=== PATIENT | female | born 1940 | race Caucasian/White ===

== ENCOUNTER → 2016-08-03 | Outpatient (CLI) | payer MEDICARE, OTHER ==
--- NOTE | 2016-08-03 16:28 | RADIOLOGY REPORT (SQ) ---
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 RADIONUCLIDE AND DOSE: 15.0 mCi F18 FDG The route of agent administration: Intravenous FASTING BLOOD SUGAR: 158 mg/dl CONTRAST TYPE AND DOSE: No CT contrast given. TECHNIQUE: Blood glucose level was verified. Above dose of FDG was injected intravenously. 2-D seg mented attenuation correction images were obtained from the base of the skull to the midthighs. Nonc ontrast CT images were obtained for attenuation correction and fusion with emission images. CT image s were performed without oral or intravenous contrast and are not sensitive for parenchymal lesions. A series of overlapping emission PET images were obtained. Images reviewed and manipulated at [facility] work station by the radiologist. Images stored on PACS. LIMITATIONS: None. FINDINGS: HEAD AND NECK: No areas of abnormal metabolic activity in the soft tissues of the head and neck. CHEST: No areas of abnormal metabolic activity in the chest. ABDOMEN AND PELVIS: No areas of abnormal metabolic activity in the abdomen or pelvis. Expected physi ologic activity is present in the genitourinary system and bowel. PROXIMAL LOWER EXTREMITIES: No areas of abnormal metabolic activity in the soft tissues of the lower extremities. ADDITIONAL CT FINDINGS: Stable incidental findings. COPD with emphysema and scarring. Gallstones. Left hip prosthesis. OTHER: No other significant findings. IMPRESSION: UNREMARKABLE PET-CT. NO ABNORMAL METABOLIC ACTIVITY. STABLE INCIDENTAL FINDINGS ABO VE. TECHNICAL DOCUMENTATION: JOB ID: [id number]- All Rights Reserved
== END ==
LOC: RAD 07-31 14:32
PROVIDERS: ATTEND Internal Medicine
DX: C84.70 Anaplastic large cell lymphoma, ALK-negative, unspecified site (principal)
CPT/HCPCS: 78815; A9552

== ENCOUNTER 2016-09-26 00:31 | Inpatient (IN) | payer MEDICARE, OTHER ==
[2016-09-26] MEDS ORDERED: ONDANSETRON HCL INJ/PF 4 MG/2 ML SDV IV ONE (01:27)
[2016-09-26] MEDS ORDERED: MORPHINE SULFATE 10 MG/ML INJ IV ONE (01:27)
[2016-09-26 02:24] LABS: APPEARANCE,URINE SLIGHTLY-CLOUDY; BILIRUBIN,URINE NEGATIVE (NEGATIVE); GLUCOSE, URINE >=500 mg/dL (NEGATIVE); KETONES,URINE TRACE mg/dL (NEGATIVE); LEUKOCYTE ESTERASE,URINE TRACE (NEGATIVE); NITRITE,URINE NEGATIVE (NEGATIVE); PROTEIN,URINE 100 mg/dL (NEGATIVE); URINE SPECIFIC GRAVITY 1.013; UROBILINOGEN,URINE NEGATIVE mg/dL (<2.0)
[2016-09-26 02:24] LABS: ABSOLUTE BASOPHILS # (AUTO) 0.1 10^3/uL (0.0-0.2); ABSOLUTE EOSINOPHILS # (AUTO) 0.1 10^3/uL (0.0-0.6); ABSOLUTE LYMPHOCYTES (AUTO) 1.5 10^3/uL (0.5-4.7); ABSOLUTE MONOCYTES (AUTO) 0.9 10^3/uL (0.1-1.4); ABSOLUTE NEUT (AUTO) 9.4 10^3/uL (1.7-8.2); BASOPHILS % (AUTO) 0.7 % (0-2); EOSINOPHILS % (AUTO) 1.2 % (0-6); HEMATOCRIT 40.8 % (36.0-47.0); HEMOGLOBIN 13.3 g/dL (12.0-15.5); HGB HCT DIFFERENCE -0.9; LYMPHOCYTES % (AUTO) 12.1 % (13-45); MEAN CORPUSCULAR HEMOGLOBIN 30.2 pg (27.0-33.4); MEAN CORPUSCULAR HGB CONC 32.6 g/dL (32.0-36.0); MEAN CORPUSCULAR VOLUME 93 fl (80-97); MONOCYTES % (AUTO) 7.3 % (3-13); RED BLOOD COUNT 4.41 10^6/uL (3.72-5.28); SEGMENTED NEUTROPHILS % (AUTO) 78.7 % (42-78)
--- NOTE | 2016-09-26 02:30 | ER Document Report ---
ED General - General Chief Complaint: Abdominal Pain Stated Complaint: ABOMINAL PAIN Time Seen by Provider: 09/26/16 01:16 Notes: Patient is a 75-year-old female presents with complaint of abdominal pain that started this evening. She did vomit a few times. No diarrhea. No blood in her emesis. Pain is diffuse. Pain is not as bad as it was earlier when I first started. No history of abdominal surgeries. She does have history of lymphoma. Last chemotherapy was just over a month ago. says that at her recent checkup they did not cease any further signs of cancer and therefore they are holding chemotherapy for now. No recent fevers or infections. No other complaints at this time. No dysuria. No chest pain. TRAVEL OUTSIDE OF THE [place] IN LAST 30 DAYS: No - Related Data Allergies/Adverse Reactions: No Known Allergies Allergy (Verified 10/14/14 12:18) Past Medical History - Social History Smoking Status: Never Smoker Frequency of alcohol use: None Drug Abuse: None Family History: CAD, DM Patient has suicidal ideation: No Patient has homicidal ideation: No - Past Medical History Cardiac Medical History: Reports: Hx Congestive Heart Failure - Left ventricular diastolic dysfunction, Hx Hypertension - COZAAR-at bedtime Denies: Hx Coronary Artery Disease, Hx Heart Attack Pulmonary Medical History: Denies: Hx Asthma, Hx Bronchitis, Hx COPD, Hx Pneumonia Neurological Medical History: Denies: Hx Cerebrovascular Accident, Hx Seizures Endocrine Medical History: Reports: Hx Diabetes Mellitus Type 2, Hx Hypothyroidism Renal/ Medical History: Denies: Hx Peritoneal Dialysis Malignancy Medical History: 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 Denies: Hx Mastectomy, Hx Open Heart Surgery, Hx Pacemaker - Immunizations Hx Diphtheria, Pertussis, Tetanus Vaccination: No Review of Systems - Review of Systems Notes: My Normal Review Basic REVIEW OF SYSTEMS: CONSTITUTIONAL : Denies fever, chills, or sweats. Denies recent illness. EENT: Denies eye, ear, throat, or mouth pain or symptoms. Denies nasal or sinus congestion. CARDIOVASCULAR: Denies chest pain. RESPIRATORY: Denies cough, cold, or chest congestion. Denies shortness of breath, difficulty breathing, or wheezing. GASTROINTESTINAL: Moderate diffuse abdominal pain. Some vomiting. Denies constipation. GENITOURINARY: Denies difficulty urinating, painful urination, burning, frequency, or blood in urine. FEMALE GENITOURINARY: Denies vaginal bleeding, abnormal or irregular periods. MUSCULOSKELETAL: Denies neck or back pain or joint pain or swelling. SKIN: Denies rash or skin lesions. NEUROLOGICAL: Denies altered mental status or loss of consciousness. Denies headache. Denies weakness or paralysis or loss of use of either side. Denies problems with gait or speech. Denies sensory or motor loss. ALL OTHER SYSTEMS REVIEWED AND NEGATIVE. Physical Exam - Vital signs Vitals: Temp Pulse Resp BP Pulse Ox 97.7 F 63 18 195/71 H 98 09/26/16 00:43 09/26/16 00:43 09/26/16 00:43 09/26/16 00:43 09/26/16 00:43 - Notes Notes: General Appearance: Well nourished, alert, cooperative, no acute distress, mild obvious discomfort. Vitals: reviewed, See vital signs table. Head: no swelling or tenderness to the head Eyes: PERRL, EOMI, Conjuctiva clear Mouth: No decreasd moisture Lungs: No wheezing, No rales, No rhonci, No accessory muscle use, good air exchange bilaterally. Heart: Normal rate, Regular rythm, No murmur, no rub Abdomen: Normal BS, soft, No rigidity, mild to moderate diffuse abdominal tenderness to palpation, No guarding, no rebound, no abdominal masses, no organomegaly Extremities: strength 5/5 in all extremities, good pulses in all extremities, no swelling or tenderness in the extremities, no edema. Skin: warm, dry, appropriate color, no rash Neuro: speech clear, oriented x 3, normal affect, responds appropriately to questions. Course - Re-evaluation Re-evalutation: 09/26/16 04:[address] scan does show evidence of acute cholecystitis. This would make sense in conjunction with her onset of abdominal pain and vomiting tonight. Patient's abdomen does not show signs of peritonitis on reexamination but is dandy tender. I did speak with Dr. Roberson, general surgeon, who agrees to admit the patient will come evaluate the patient. He requests that I speak with the hospitalist about medical clearance. I did speak with Dr. Olguin, hospitalist, who agrees to see the patient for medical clearance. - Vital Signs Vital signs: Temp Pulse Resp BP Pulse Ox 97.7 F 63 18 195/71 H 98 09/26/16 00:43 09/26/16 00:43 09/26/16 00:43 09/26/16 00:43 09/26/16 00:43 - Laboratory Result Diagrams: 09/26/16 02:00 09/26/16 02:00 Laboratory results interpreted by me: 09/26/16 09/26/16 09/26/16 01:45 02:00 02:00 WBC 12.0 H RDW 15.0 H Seg Neutrophils % 78.7 H Lymphocytes % 12.1 L Absolute Neutrophils 9.4 H Carbon Dioxide 31 H Glucose 272 H Urine Protein 100 H Urine Glucose (UA) >=500 H Urine Ketones TRACE H Urine Blood SMALL H Ur Leukocyte Esterase TRACE H - EKG Interpretation by Me Additional EKG results interpreted by me: 09/26/16 02:26 EKG is reviewed and interpreted by me. EKG shows normal sinus rhythm with rate of [address] segment elevation. Very mild ST segment depression in the lateral precordial leads. Old EKG for comparison is from February 27, 2015.. No ischemic T-wave inversions. MD interval, QRS duration are within normal range. QTc interval is slightly prolonged. Discharge - Discharge Clinical Impression: Acute cholecystitis Abdominal pain Qualifiers: Abdominal location: generalized Qualified Code(s): R10.84 - Generalized abdominal pain Condition: Stable Disposition: ADMITTED INPATIENT Admitting Provider: Surgicalist Unit Admitted: Telemetry
[2016-09-26 02:49] LABS: ALANINE AMINOTRANSFERASE 37 U/L (9-52); ALBUMIN 3.8 g/dL (3.5-5.0); ALKALINE PHOSPHATASE 114 U/L (38-126); ANION GAP 10 (5-19); ASPARTATE AMINO TRANSFERASE 26 U/L (14-36); BILIRUBIN,DIRECT 0.3 mg/dL (0.0-0.4); BILIRUBIN,TOTAL 0.9 mg/dL (0.2-1.3); BLOOD UREA NITROGEN 20 mg/dL (7-20); CALCIUM 9.3 mg/dL (8.4-10.2); CARBON DIOXIDE 31 mmol/L (22-30); CHLORIDE 100 mmol/L (98-107); CREATININE RESULT 0.67 mg/dL (0.52-1.25); GLUCOSE 272 mg/dL (75-110); LIPASE 96.3 U/L (23-300); POTASSIUM 4.3 mmol/L (3.6-5.0); SODIUM 140.6 mmol/L (137-145); TOTAL PROTEIN 7.3 g/dL (6.3-8.2)
[2016-09-26] MEDS ORDERED: NORMAL SALINE 1000 ML 1,000 ML IV ONE (02:57)
[2016-09-26] MEDS ORDERED: FENTANYL CITRATE INJ/PF 100 MCG/2 ML AMPUL IV ONE (02:57)
--- NOTE | 2016-09-26 04:06 | RADIOLOGY REPORT (SQ) ---
EXAM DESCRIPTION: CT ABD/PELVIS WITH IV ONLY COMPLETED DATE/TIME: 09/26/2016 3:47 am REASON FOR STUDY: abdominal pain , nausea and vomiting. COMPARISON: PET/CT 08/03/2016. CT abdomen and pelvis 02/07/2014. TECHNIQUE: CT scan of the abdomen and pelvis performed using helical scanning technique with dynamic intravenous contrast injection. No oral contrast. Images reviewed with lung, soft tissue, and bone windows. Reconstructed coronal and sagittal MPR images reviewed. Delayed images for evaluation of the urinary system also acquired. All images stored on PACS. All CT scanners at this facility use dose modulation, iterative reconstruction, and/or weight based d osing when appropriate to reduce radiation dose to as low as reasonably achievable (ALARA). [facility]: Dose Right [facility]: CareDose [facility]: Dose Right [facility]: Teradose 4D [facility]: Aircom CONTRAST TYPE AND DOSE: contrast/concentration: Isovue 370.00 mg/ml; Total Contrast Delivered: 58.0 ml; Total Saline Delivered: 65.0 ml RENAL FUNCTION: Creatinine 0.67 RADIATION DOSE: Up-to-date CT equipment and radiation dose reduction techniques were employed. CTDIv ol: NaN - NaN mGy. DLP: 0 mGy-cm.. LIMITATIONS: None. FINDINGS: LOWER CHEST: Mild bibasilar atelectasis. No pleural effusion. LIVER: Normal size. 1.4 cm low-density area at the anterior left hepatic lobe, probably representing a cyst. Mild intrahepatic biliary ductal dilation. SPLEEN: Normal size. PANCREAS: No significant calcifications. No adjacent inflammation or peripancreatic fluid collections . Pancreatic duct not dilated. GALLBLADDER: There is a cholelithiasis. The gallbladder is distended. There is pericholecystic flui d. The common bile duct is dilated to 11 mm. ADRENAL GLANDS: No significant masses or asymmetry. RIGHT KIDNEY AND URETER: No solid masses. No significant calcifications. No hydronephrosis or hyd roureter. LEFT KIDNEY AND URETER: No solid masses. No significant calcifications. No hydronephrosis or hydr oureter. AORTA AND VESSELS: No abdominal aortic aneurysm. Atherosclerotic calcifications within the abdominal and its branches. RETROPERITONEUM: No retroperitoneal hemorrhage or masses. BOWEL AND PERITONEAL CAVITY: No dilated bowel loops or inflammatory changes. Trace free-fluid. No f ree air. APPENDIX: Not visualized. PELVIS: The urinary bladder is partially distended. The uterus is surgically absent. Trace free flu id. ABDOMINAL WALL: Postsurgical changes in the right anterior abdominal wall. BONES: Degenerative changes in the spine. The patient is status post total left hip arthroplasty. IMPRESSION: Distended gallbladder with gallstones and pericholecystic fluid, suggestive of acute wale culous cholecystitis. Dilated biliary tree, choledocholithiasis cannot be excluded. Trace ascites. TECHNICAL DOCUMENTATION: JOB ID: [id number] [facility] Quality ID # [id number]: Final reports with documentation of one or more dose reduction techniques (e.g., Au tomated exposure control, adjustment of the mA and/or kV according to patient size, use of iterative reconstruction technique) 2010 [employer]- All Rights Reserved
[2016-09-26] MEDS ORDERED: ERTAPENEM SODIUM INJ 1 GM VIAL IV ONE (04:30)
[2016-09-26 05:23] LABS: ADD ON TESTING BLD IN LAB ACKNOWLEDGE
--- NOTE | 2016-09-26 06:29 | HISTORY AND PHYSICAL E ---
History and Physical NAME: ANNIE GOODE : 1940 AGE: 75Y ADMITTED: 09/26/2016 ROOM: ED16 CHIEF COMPLAINT: Abdominal pain. HISTORY OF PRESENT ILLNESS: This is a 75-year-old female with a history of type 1 diabetes mellitus, lymphoma, and noted to have abdominal pains after eating fatty food last night around 8:00 p.m. Pain is described as diffuse with nausea and vomiting several times. She came to the emergency room where CAT scan of the abdomen was done, which showed gallstones with pericholecystic fluid and common bile duct around 11 mm in diameter. Her LFTs, though, were normal, but her white count is slightly elevated around 12,000 and her glucose is around 272. Her blood sugar was 300 last night, according to her . PAST MEDICAL HISTORY: 1. History of congestive heart failure with left ventricular diastolic dysfunction. 2. Hypertension for which she takes Cozaar at bedtime. Denies any coronary artery disease or history of MS. PULMONARY HISTORY: Denies asthma or bronchitis. UROLOGIC HISTORY: Denies CVA. ENDOCRINE HISTORY: Diabetes mellitus type 1, according to the patient and the and history of hypothyroidism. RENAL/GENITOURINARY MEDICAL HISTORY: Denies peritoneal dialysis, malignancy. Reports history of lymphoma/T-cell lymphoma diagnosed 4 years ago and her last chemotherapy by Dr. Rosa was about 5-6 weeks ago. GASTROINTESTINAL HISTORY: Denies hepatitis or hiatal hernia. MUSCULOSKELETAL: Denies arthritis. PSYCHIATRIC HISTORY: Denies depression. INFECTIOUS MEDICAL HISTORY: Denies hepatitis. PAST SURGICAL HISTORY: History of hysterectomy. She cannot remember where she had a biopsy of the lymph node when she had a diagnosis of lymphoma. REVIEW OF SYSTEMS: CONSTITUTIONAL: Denies any fever, chills, or sweats. EENT: Denies eye, ear, throat, or mouth pains or symptoms. CARDIOVASCULAR: Denies chest pains. RESPIRATORY: Denies cough or chest congestion. GASTROINTESTINAL: Moderate diffuse abdominal pains with nausea and vomiting. GENITOURINARY: Denies dysuria. Female genitourinary: Patient had a hysterectomy and no vaginal bleeding. MUSCULOSKELETAL: Denies neck or back pains. Admits to having left arm and left hand pains and numbness of both feet as well as the right hand. SKIN: Denies any skin rash. NEUROLOGICAL: Numbness of the left arm and both feet. Pains in both hands. Denies any weakness or gait problems or speech problems. All other systems were reviewed and negative. ALLERGIES: No known allergies to medications. SOCIAL HISTORY: Denies smoking, drinking, or alcohol use. PHYSICAL EXAMINATION: GENERAL: Well-developed, well-nourished 75-year-old female alert and oriented, complaining of abdominal pains. NECK: Supple. No thyromegaly. No adenopathy. HEENT: Eyes: Pupils equal and reactive to light. Conjunctiva is clear. No icterus. Mouth: No decreased moisture. LUNGS: Clear to auscultation. HEART: Regular sinus rhythm. ABDOMEN: With diffuse tenderness, but more so in the right upper quadrant. EXTREMITIES: Range of motion normal. SKIN: Warm and dry. NEUROLOGIC: Well oriented x3 and speech is clear. IMPRESSION: 1. Acute calculous cholecystitis. 2. Diabetes mellitus type 1. 3. Hypertension. 4. Lymphoma. PLAN: Incidentally, patient developed pains along the left arm and both hands and numbness of both feet, likely due to the chemotherapy and Dr. Rosa, according to the patient and her , would like to hold off on further chemotherapy until her symptoms improve. This morning, Dr. Olguin is seeing the patient for medical clearance. Patient for possible laparoscopic cholecystectomy. DICTATING PHYSICIAN: SAMIRA PIZANO M.D. [id number] PHY#: [id number] ID: [id number] JOB#: [id number] ACCT: [id number] cc:SAMIRA PIZANO M.D. >
[2016-09-26] MEDS ORDERED: GLUCAGON,HUMAN RECOMB 1 MG INJ IM PRN (06:37)
[2016-09-26] MEDS ORDERED: DEXTROSE 40% GEL 15 GM TUBE PO PRN ×2 (06:37)
[2016-09-26] MEDS ORDERED: DEXTROSE 50%-WATER 25 GM/50 ML DISP.SYRIN IV PRN ×2 (06:37)
[2016-09-26] MEDS ORDERED: PIPERACILLIN/TAZOBACTAM 3.375 GM VIAL IV PRN (06:46)
[2016-09-26] MEDS ORDERED: PIPERACILLIN SODIUM/TAZOBACTAM 3.375 GM in NORMAL SALINE 100 ML IV ONE ×2 (07:00→10:00)
--- NOTE | 2016-09-26 07:27 | EKG REPORT ---
SEVERITY:- BORDERLINE ECG - SINUS RHYTHM PROBABLE LEFT ATRIAL ABNORMALITY NONSPECIFIC ST-T CHANGES : Confirmed by: Shawnee Kurtz 26-Sep-2016 07:26:29
--- NOTE | 2016-09-26 07:34 | PDOC CONSULTATION ---
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 Pain more noticeable in the right upper quadrant. Combination of cramping and sharp. Increased with certain movements. No prior such episodes of pain. No typical symptoms consistent with fatty food intolerance. Nausea and 2 episodes of vomiting. No diarrhea, fever or chills, or dysuria. Workup has included CT scan of the abdomen and pelvis revealing cholelithiasis with probable associated cholecystitis. Admitted to the surgical service. Consult placed to the hospitalist team for management of medical problems. Patient has been discussed with emergency room physician who evaluated the patient. Underlying diastolic congestive heart failure and hypertension. No other significant cardiac problems. No prior cardiac workup. States on a good day she can only walk approximately 2 blocks before she becomes "wobbly." No symptoms of chest pain shortness of breath or lower extremity claudication. Currently resting quietly, stating she does feel a bit better. Hospitalized on our service the through 03 March 2015 for left femoral neck fracture. Surgical repair of same. History and physical and transfer summary reviewed. Laboratory results are listed in [facility] and are reviewed. X-ray summary results are listed below, with full report(s) reviewed. . EKG reviewed and compared to prior tracing from February 27, 2015. Social history/personal habits: to her second ; first . Has children. Retired. No use of alcohol tobacco or illicit drugs. No known drug allergies. Home medications initially autopopulated into [employer] may not accurately reflect patient's true medications, dosages, and/or frequencies. budget technician to reconcile medications. Unfortunately, patient not certain of all medication dosages/frequencies. REVIEW OF SYSTEMS: Constitutional: No fever or chills. Eyes: Very poor vision, felt secondary to diabetes mellitus. However, does not wear corrective eyewear. ENT: No swallowing problems or complaints. Denies hearing loss. Pulmonary: No current complaints. Cardiovascular: No current complaints, including chest pain. Gastrointestinal: See history and present illness. Skin: No current complaints, including rashes. Hematologic: Easy bruising. 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 Musculoskeletal: No current or chronic joint complaints, such as arthritis. Psychiatric: Denies anxiety or depression. Endocrine: No current complaints, including polyuria. Genitourinary: No current complaints, including dysuria. PHYSICAL EXAMINATION: 5 feet 1 inches tall. 54.6 kg. BMI 22.7 kg/m. Blood pressure 163/64. Pulse 77 and regular. 94% saturation on room air. Respirations are 15 and unlabored. Temperature 97.8. Thin otherwise well-nourished well-developed elderly female appearing approximately her stated age. Pleasant awake alert and cooperative. Appears to feel a bit under the weather, so to speak. Mildly anxious, without agitation. is present at her side; patient approves. Skin is warm and dry. No grossly obvious evidence of rash in areas of skin examined. No subcutaneous nodules palpated. ENT: Hearing grossly normal to normal conversation. Tongue midline on protrusion pink and slightly tacky. Eyes: No scleral icterus. Pupils equal and reactive to light at 4 mm. [place] conjunctivae. Neck is supple and nontender to gentle active range of motion and palpation. Midline trachea. No palpable thyroid nodule mass enlargement or tenderness. Lymphatic: No palpable cervical or clavicular nodes. Neck and lymphatic exams limited by patient body habitus. Psychiatric: Reasonable insight into acute and chronic medical issues. Oriented to time location and why here. Lungs: Auscultation reveals clear and equal breath sounds bilaterally. No use of accessory respiratory muscles. Cardiovascular: Heart regular rate and rhythm, without gallop murmur or rub. No carotid or abdominal aortic bruits. No ankle or pedal edema. palpable dorsalis pedis pulses. Abdomen:soft slightly distended with positive bowel sounds. Mild diffuse tenderness, a bit more noticeable in the right upper quadrant; no evidence of guarding or peritoneal signs. Unable to adequately evaluate abdomen for masses or organomegaly due to distention and discomfort. Extremities: Feet are warm and dry. No calf tenderness to compression. No grossly obvious visual evidence of calf swelling. Gentle manipulation of lower extremities fails to reveal any obvious evidence of injury or instability to knees hips or ankles. Neurologic: Moves upper extremities grossly normally. Patellar reflexes absent. Absent Babinski. Light touch is intact at feet. Dorsiflexion and plantarflexion of feet 5 / 5 and symmetric. Past Medical History Cardiac Medical History: Reports: Congestive Heart Failure - diastolic dysfunction, Hyperlipidema, Hypertension - COZAAR-at bedtime Denies: Atrial Fibrillation, Coronary Artery Disease, DVT, Myocardial Infarction, Pulmonary Embolism Pulmonary Medical History: Denies: Asthma, Bronchitis, Chronic Obstructive Pulmonary Disease (COPD), Pneumonia, Sleep Apnea EENT Medical History: Reports: Eyes - Diabetic retinopathy Denies: Ears, Throat Neurological Medical History: Denies: Hemorrhagic CVA, Ischemic CVA, Seizures Endocrine Medical History: Reports: Diabetes Mellitus Type 1, Hypothyroidism Denies: Diabetes Mellitus Type 2, Hyperthyroidism Renal/ Medical History: Reports: Nephrolithiasis - Distant history Malignancy Medical History: 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; 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 GI Medical History: Denies: Cirrhosis, Gastroesophageal Reflux Disease, Hepatitis, Hiatal Hernia , Peptic Ulcer Disease Musculoskeltal Medical History: Denies: Arthritis Skin Medical History: Reports: None Psychiatric Medical History: Denies: Alcohol Dependency, Depression, General Anxiety Disorder, Substance Abuse, Tobacco Dependency Hematology: Reports: Other - Easy bruising Denies: Anemia, Sickle Cell Disease Infectious Medical History: Denies: Clostridium Difficile, Hepatitis B, Hepatitis C, Methicillin- Resistant Staph Aureus Past Surgical History Past Surgical History: Reports: Hysterectomy Denies: Amputation, Mastectomy, Pacemaker Social History Information Source: Patient, Emergency Med Personnel, [facility] Records Lives with: Spouse/Significant other Smoking Status: Former Smoker Cigarettes Packs Per Day: 1 Number of Years Smokin Last Time Smoked: 10/2008 Frequency of Alcohol Use: None Hx Recreational Drug Use: No Drugs: None Hx Prescription Drug Abuse: No - Advance Directive Resuscitation Status: Full Code Surrogate healthcare decision maker:: . Family History Family History: CAD, DM Parental Family History Reviewed: Yes - Mother of cancer. Father of "arterial sclerosis" Children Family History Reviewed: Yes - Daughter with lupus Sibling(s) Family History Reviewed.: Yes - Brother is diabetic Medication/Allergy Home Medications: Aspirin [Aspirin 81 mg Chewable Tablet] 81 mg PO DAILY 09/26/16 Atorvastatin Calcium [Lipitor 80 mg Tablet] 80 mg PO QHS 09/26/16 Carboxymethylcellulose Sodium [Refresh Celluvisc Drops] 1 dropperful OU BID Cetirizine HCl [Zyrtec 10 mg Tablet] 10 mg PO DAILY 09/26/16 Citalopram Hydrobromide [Celexa 20 mg Tablet] 20 mg PO DAILY 09/26/16 Ergocalciferol (Vitamin D2) [Drisdol 50,000 unit (1.25MG) Capsule] 50,000 unit PO FR@1000 09/26/16 Gabapentin [Neurontin 300 mg Capsule] 600 mg PO Q8 09/26/16 Insulin Aspart [Novolog Flexpen] 0 unit SUBCUT .SLD SCALE 09/26/16 Insulin Glargine,Hum.rec.anlog [Lantus Solostar] 4 unit SQ QHS 09/26/16 Insulin Glargine,Hum.rec.anlog [Lantus Solostar] 10 unit SQ QAM 09/26/16 Levothyroxine Sodium [Synthroid 0.1 mg Tablet] 0.1 mg PO QAM 09/26/16 Lisinopril [Prinivil 5 mg Tablet] 5 mg PO QHS 09/26/16 Metoprolol Tartrate [Lopressor 25 mg Tablet] 25 mg PO Q12 09/26/16 Acetaminophen [Tylenol 325 mg Tablet] 325 mg PO Q4HP PRN #30 tablet 09/28/16 Naproxen [Naprosyn 250 mg Tablet] 250 mg PO BIDP PRN #30 tablet 09/28/16 Allergies/Adverse Reactions: No Known Allergies Allergy (Verified 10/14/14 12:18) Physical Exam Vital Signs: Temp Pulse Resp BP Pulse Ox 97.8 F 63 27 H 163/64 H 91 L 09/26/16 05:09 09/26/16 00:43 09/26/16 05:21 09/26/16 05:21 09/26/16 05:21 Results Impressions: Abdomen/Pelvis CT 09/26/16 02:57 IMPRESSION: Distended gallbladder with gallstones and pericholecystic fluid, suggestive of acute calculous cholecystitis. Dilated biliary tree, choledocholithiasis cannot be excluded. Trace ascites. Assessment & Plan - Diagnosis (1) Acute cholecystitis Is this a current diagnosis for this admission?: YesPlan: Surgical management. (2) Diabetes mellitus type 1 Qualifiers: Diabetes mellitus complication status: with ophthalmic complications Diabetes mellitus complication detail: with diabetic retinopathy Diabetic retinopathy severity: with unspecified retinopathy severity Diabetes mellitus macular edema: macular edema presence unspecified Laterality: bilateral Qualified Code(s): E10.319 - Type 1 diabetes mellitus with unspecified diabetic retinopathy without macular edema Is this a current diagnosis for this admission?: YesPlan: Accu-Cheks with appropriate sliding scale coverage. Resume home medications as appropriate once these have been determined and reviewed. I have strongly encouraged patient not to get out of bed without notifying staff , to avoid a fall with injury. DVT prophylaxis per surgery. Impression and plans were discussed with patient and , both of whom concur. Time spent in evaluation and management of patient: 64 minutes. (3) Diastolic CHF Qualifiers: Congestive heart failure chronicity: chronic Qualified Code(s): I50.32 - Chronic diastolic (congestive) heart failure Is this a current diagnosis for this admission?: YesPlan: No evidence of acute exacerbation of same. With planned surgery, and with multiple comorbidities, cardiology consult. (4) Hyperlipidemia Qualifiers: Hyperlipidemia type: unspecified Qualified Code(s): E78.5 - Hyperlipidemia, unspecified Is this a current diagnosis for this admission?: YesPlan: Resume home medications as appropriate once these have been determined and reviewed. (5) Hypothyroid Qualifiers: Hypothyroidism type: unspecified Qualified Code(s): E03.9 - Hypothyroidism, unspecified Is this a current diagnosis for this admission?: YesPlan: Resume home medications as appropriate once these have been determined and reviewed. (6) Maintenance chemotherapy Is this a current diagnosis for this admission?: YesPlan: Oncology consult (7) T-cell lymphoma Is this a current diagnosis for this admission?: Yes - Plan Summary Plan Summary: Thank you for asking see this unfortunate patient. Hospitalist service will follow and manage her multiple medical problems.
--- NOTE | 2016-09-26 08:38 | PDOC CONSULTATION ---
Consultation Consult Date: 09/26/16 Attending physician:: SAMIRA PIZANO Consult reason:: Anaplastic T cell lymphoma w/ cholecystitis History of Present Illness Admission Date/PCP: 09/26/16 04:44 RIGO LANGFORD Patient complains of: Anaplastic T cell lymphoma w/ cholecystitis History of Present Illness: 75-year-old female with known history of anaplastic T-cell lymphoma, recently he has been on a drug called adcetris, getting this drug every 12 weeks. Major issue with that has been peripheral neuropathy which has been severe. She comes in with abdominal pain postprandial, is felt to have acute cholecystitis and is planning to have cholecystectomy. We have been consulted to discuss holding chemotherapy with her. Past Medical History Cardiac Medical History: Reports: Congestive Heart Failure - diastolic dysfunction, Hyperlipidema, Hypertension - COZAAR-at bedtime Denies: Atrial Fibrillation, Coronary Artery Disease, DVT, Myocardial Infarction, Pulmonary Embolism Pulmonary Medical History: Denies: Asthma, Bronchitis, Chronic Obstructive Pulmonary Disease (COPD), Pneumonia, Sleep Apnea EENT Medical History: Reports: Eyes - Diabetic retinopathy, Other - Easy bruising Denies: Ears, Throat Neurological Medical History: Denies: Hemorrhagic CVA, Ischemic CVA, Seizures Endocrine Medical History: Reports: Diabetes Mellitus Type 1, Hypothyroidism Denies: Diabetes Mellitus Type 2, Hyperthyroidism Renal/ Medical History: Reports: Nephrolithiasis - Distant history Malignancy Medical History: 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; 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 GI Medical History: Denies: Cirrhosis, Gastroesophageal Reflux Disease, Hepatitis, Hiatal Hernia , Peptic Ulcer Disease Musculoskeltal Medical History: Denies: Arthritis Skin Medical History: Reports: None Psychiatric Medical History: Denies: Alcohol Dependency, Depression, General Anxiety Disorder, Substance Abuse, Tobacco Dependency Hematology: Reports: Other - Easy bruising Denies: Anemia, Sickle Cell Disease Infectious Medical History: Denies: Clostridium Difficile, Hepatitis B, Hepatitis C, Methicillin- Resistant Staph Aureus Past Surgical History Past Surgical History: Reports: Hysterectomy Denies: Amputation, Mastectomy, Pacemaker Social History Lives with: Spouse/Significant other Smoking Status: Former Smoker Cigarettes Packs Per Day: 1 Number of Years Smokin Last Time Smoked: 10/2008 Frequency of Alcohol Use: None Hx Recreational Drug Use: No Drugs: None Hx Prescription Drug Abuse: No - Advance Directive Resuscitation Status: Full Code Family History Family History: CAD, DM Parental Family History Reviewed: Yes Children Family History Reviewed: Yes Sibling(s) Family History Reviewed.: Yes Medication/Allergy Allergies/Adverse Reactions: No Known Allergies Allergy (Verified 10/14/14 12:18) Review of Systems Constitutional: ABSENT: chills, fever(s), headache(s), weight gain, weight loss Eyes: ABSENT: visual disturbances Ears: ABSENT: hearing changes Cardiovascular: ABSENT: chest pain, dyspnea on exertion, edema, orthropnea, palpitations Respiratory: ABSENT: cough, hemoptysis Gastrointestinal: ABSENT: abdominal pain, constipation, diarrhea, hematemesis, hematochezia, nausea, vomiting Genitourinary: ABSENT: dysuria, hematuria Musculoskeletal: ABSENT: joint swelling Integumentary: ABSENT: rash, wounds Neurological: ABSENT: abnormal gait, abnormal speech, confusion, dizziness, focal weakness, syncope Psychiatric: ABSENT: anxiety, depression, homidical ideation, suicidal ideation Endocrine: ABSENT: cold intolerance, heat intolerance, polydipsia, polyuria Hematologic/Lymphatic: ABSENT: easy bleeding, easy bruising Physical Exam Vital Signs: Temp Pulse Resp BP Pulse Ox 97.8 F 72 17 149/62 H 96 09/26/16 05:09 09/26/16 07:00 09/26/16 06:00 09/26/16 05:40 09/26/16 06:00 General appearance: PRESENT: no acute distress, well-developed, well-nourished Head exam: PRESENT: atraumatic, normocephalic Eye exam: PRESENT: conjunctiva pink, EOMI, PERRLA. ABSENT: scleral icterus Ear exam: PRESENT: normal external ear exam Mouth exam: PRESENT: moist, tongue midline Neck exam: ABSENT: carotid bruit, JVD, lymphadenopathy, thyromegaly Respiratory exam: PRESENT: clear to auscultation dinora. ABSENT: rales, rhonchi, wheezes Cardiovascular exam: PRESENT: RRR. ABSENT: diastolic murmur, rubs, systolic murmur Pulses: PRESENT: normal dorsalis pedis pul Vascular exam: PRESENT: normal capillary refill GI/Abdominal exam: PRESENT: normal bowel sounds, soft. ABSENT: distended, guarding, mass, organolmegaly, rebound, tenderness Rectal exam: PRESENT: deferred Extremities exam: PRESENT: full ROM. ABSENT: calf tenderness, clubbing, pedal edema Neurological exam: PRESENT: alert, awake, oriented to person, oriented to place , oriented to time, oriented to situation, CN II-XII grossly intact. ABSENT: motor sensory deficit Psychiatric exam: PRESENT: appropriate affect, normal mood. ABSENT: homicidal ideation, suicidal ideation Skin exam: PRESENT: dry, intact, warm. ABSENT: cyanosis, rash Results Impressions: Abdomen/Pelvis CT 09/26/16 02:57 IMPRESSION: Distended gallbladder with gallstones and pericholecystic fluid, suggestive of acute calculous cholecystitis. Dilated biliary tree, choledocholithiasis cannot be excluded. Trace ascites. 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 But for now treatment can be on hold. Will follow peripherally while patient is in-house, thank you for the opportunity to assist in this patient's care, please call with any questions. - Time Time Spent: Greater than 70 Minutes Critical Time spent with patient: 35 or more minutes - Inpatient Certification Based on my medical assessment, after consideration of the patient's comorbidities, presenting symptoms, or acuity I expect that the services needed warrant INPATIENT care.: Yes I certify that my determination is in accordance with my understanding of Medicare's requirements for reasonable and necessary INPATIENT services [42 CFR 412.3e].: Yes Medical Necessity: Need for Surgery
[2016-09-26] MEDS ORDERED: LIDOCAINE 2% INJ-PF (20 MG/ML) 10 ML AMPUL ONE (09:41)
[2016-09-26] MEDS ORDERED: GLYCOPYRROLATE INJ 0.4 MG/2 ML VIAL ONE (09:41)
[2016-09-26] MEDS ORDERED: ONDANSETRON HCL INJ/PF 4 MG/2 ML SDV ONE (09:41)
[2016-09-26] MEDS ORDERED: SUCCINYLCHOLINE CHLORIDE INJ 200 MG/10 ML VIAL ONE (09:41)
[2016-09-26] MEDS: RINGERS SOLUTION,LACTATED 1,000 ML IV PRN (10:03)
--- NOTE | 2016-09-26 10:38 | PDOC PROGRESS REPORT ---
Subjective Progress Note for:: 09/26/16 Subjective:: Patient seen, interviewed and examined. Formal consult to follow. Impression 1. Clinically no evidence of coronary artery disease. Patient with no anginal symptoms and good effort tolerance. The patient denies any history of coronary artery disease, angina, IA or any atypical chest pains. There are no symptoms of congestive heart failure. The patient has no palpitations and no arrhythmias. 2 hypertension. 3. Diabetes mellitus. 4. Lymphoma in remission. 5. Evidence of cholelithiasis. 6. Preoperative cardiac risk assessment. Conclusion: The patient would be an acceptable/mild cardiac risk for this procedure under general anesthesia. Discussed with Dr. Gresham and Dr. Bill. Physical Exam Vital Signs: Temp Pulse Resp BP Pulse Ox 97.8 F 72 17 149/62 H 96 09/26/16 05:09 09/26/16 07:00 09/26/16 06:00 09/26/16 05:40 09/26/16 06:00 Results Impressions: Abdomen/Pelvis CT 09/26/16 02:57 IMPRESSION: Distended gallbladder with gallstones and pericholecystic fluid, suggestive of acute calculous cholecystitis. Dilated biliary tree, choledocholithiasis cannot be excluded. Trace ascites.
--- NOTE | 2016-09-26 11:48 | CONSULTATION REPORT E ---
Consultation Report NAME: ANNIE GOODE : 1940 AGE: 75Y DATE: 09/26/2016 ROOM: 401 A TO: ODETTE KOLB M.D. FROM: Molly REGAN, Requesting Physician HISTORY OF PRESENT ILLNESS: The patient was admitted overnight by Dr. Roberson for abdominal pain, evaluated and found to have evidence of acute cholecystitis with cholelithiasis. Patient overnight continued to have abdominal pain but has received pain medication. She denies having knowledge of gallstones. She has had a previous hysterectomy. PHYSICAL EXAMINATION: The patient is examined on fourth floor [facility]. She is in no acute distress. Exam focused on the abdomen. She is tender in the right upper quadrant. There are parallel vertically oriented incisions on the abdominal wall, one at midline and one paramedian. She is uncertain as to the reason for the paramedian incision. There is moderate abdominal swelling. HOSPITAL COURSE: We have consulted Dr. Rosa who knows the patient well. The patient has a long history of anaplastic T-cell lymphoma for which she receives chemotherapeutic treatment every [address] Rosa feels that the patient's lymphoma is in relative remission, and there is no clinical indication for withholding emergent abdominal surgery. Furthermore, the patient has been seen by Dr. Rahman, legal paraprofessional, who has evaluated the patient and has determined that the patient's risk of perioperative cardiovascular event is low to moderate. Patient had an ejection fraction of 65% on an echocardiogram 2 years ago. She does have a history of left ventricular diastolic dysfunction. I have also spoken with the anesthesiologist transportation engineer today who agrees with proceeding with the planned procedure. I will discuss with the patient a thorough explanation of my operative approach, including laparoscopic, possible conversion to open, exploratory surgery, cholecystectomy and whatever else may need to be addressed at the time of exploration. DICTATING PHYSICIAN: ODETTE KOLB M.D. [id number] PHY#: [id number] ID: [id number] JOB#: [id number] ACCT: [id number] cc:ODETTE KOLB M.D. >
[2016-09-26] MEDS ORDERED: PIPERACILLIN SODIUM/TAZOBACTAM 3.375 GM in NORMAL SALINE 100 ML IV SCH (12:00)
--- NOTE | 2016-09-26 13:25 | Progress Note ---
Provider Note Provider Note: pt seen and examined, chart reviewed. pt admitted early this morning for evaluation of abd pain and found to have probable acalculus cholecystitis; general surgery admitted and we were asked to assist with medical management. she denies underlying CAD, never had a stress test or heart cath and never needed one that she is aware of. she suffers HTN and DM and anaplastic T-cell lymphoma reportedly in remission with ongoing treatment by adcetris. she is awake and alert, breathing easily, no tachycardia, nl S1, S2 without peripheral edema, nl mood and affect, mild RUQ abd pain with deep palpation, normal BSs, no rash. hemodynamically stable. case discussed with cardiology, oncology and surgery - ok to proceed with surgery given her acceptable preop cardiac risk. will continue to follow along.
[2016-09-26] MEDS: PIPERACILLIN SODIUM/TAZOBACTAM 3.375 GM in NORMAL SALINE 100 ML IV SCH ×2 (14:15→20:33)
[2016-09-26] MEDS ORDERED: FENTANYL CITRATE INJ/PF 250 MCG/5 ML AMPULE ONE (14:40)
[2016-09-26] MEDS ORDERED: ACETAMINOPHEN 100 ML IV ONE (14:41)
[2016-09-26] MEDS ORDERED: PROPOFOL INJ 200 MG/20 ML VIAL IV ONE (14:41)
[2016-09-26] MEDS ORDERED: EPHEDRINE SULFATE INJ 50 MG/1 ML AMPULE ONE (14:41)
[2016-09-26] MEDS ORDERED: MIDAZOLAM 2 MG/2 ML INJ ONE (14:41)
[2016-09-26] MEDS ORDERED: BUPIVACAINE HCL 0.25 % INJ/PF (2.5 MG/1 ML) 30 ML VIAL ONE (14:46)
[2016-09-26] MEDS ORDERED: METOPROLOL TARTRATE PF/INJ 5 MG/5 ML SDV IV ONE ×3 (15:31→18:30)
[2016-09-26] MEDS ORDERED: ONDANSETRON HCL INJ/PF 4 MG/2 ML SDV IV PRN ×2 (15:50→17:08)
[2016-09-26] MEDS ORDERED: FENTANYL CITRATE INJ/PF 100 MCG/2 ML AMPUL IV PRN ×2 (15:50)
[2016-09-26] MEDS ORDERED: MORPHINE SULFATE 10 MG/ML INJ IV PRN (17:08)
--- NOTE | 2016-09-26 17:23 | Operative Report ---
Operative Report DATE OF SURGERY: 09/26/16 PREOPERATIVE DIAGNOSIS: Acute cholecystitis with cholelithiasis POSTOPERATIVE DIAGNOSIS: Same OPERATION: 1. Laparoscopic cholecystectomy. 2. Intraoperative lysis of adhesions. 3. Drainage of subhepatic space SURGEON: ODETTE KOLB ANESTHESIA: GA TISSUE REMOVED OR ALTERED: 1 gallbladder with contents COMPLICATIONS: None ESTIMATED BLOOD LOSS: 250 cc INTRAOPERATIVE FINDINGS: See below PROCEDURE: The patient was taken from the preop holding area to the main operating room where general anesthesia was induced. Arms were abducted, and abdomen prepped and draped in sterile fashion, instrumentation set up for laparoscopic cholecystectomy. Surgical plan and surgical timeout were conducted Skin was anesthetized with quarter percent Marcaine. A vertical incision was made over the umbilicus, Veress needle inserted the peritoneal cavity pneumoperitoneum was established. 5 mm port was inserted and a 5 mm flexible viewing scope was inserted. Under direct visualization a subxiphoid port was inserted. Findings were significant for several loops of bowel adhesed to the anterior abdominal wall below the umbilicus in 2 areas. There were filmy adhesions between the greater omentum and the anterior abdominal wall on the patient's right lateral side. These adhesions were taken down using a combination of electrocautery and LigaSure dissection. Of note we did not attempt to take down either of the loops of small bowel previously referred to as they were caudad to the umbilicus 2 additional ports were placed under direct visualization in the right sub- costal positions for standard cholecystectomy positioning. Of note adhesions between the transverse colon on the right lateral side and the omentum were taken down with LigaSure device. After completion of this task, I placed 2 hemoclips on the colon to ensure adequate position of the tissue. There was no evidence of serosal injury, however this was performed for security sake. The gallbladder was massively distended, photos taken and it was decompressed with a laparoscopic trocar. We then reflected the gallbladder up over the liver bed. Fortunately there was minimal pericholecystic inflammation but there was a significant amount of free fluid. All the findings were significant for acute cholecystitis with complete cystic duct obstruction as the bile was completely clear. We began dissecting out the neck of the gallbladder its junction with the cystic duct however the cystic duct was very edematous and this tissue in the region was very inflamed. Therefore we opted for a top down approach and this was affected uneventfully until we encountered a hepatic vessel, specifically superficial vein almost on end which was divided as the gallbladder was removed from the undersurface of the liver. it Bled until we held pressure on it with a small piece of Surgicel. For now the bleeding was controlled so we continued gallbladder from the undersurface of the liver in the usual fashion. Eventually we got down to the gallbladder suspended solely from the cystic duct and cystic artery which were essentially Biobond it as a single unit. Photos were taken. We clipped the cystic artery proximally to time then cauterized the distal gland. Because of the thickened, edematous and enlarged nature of the cystic duct, and the possibility of encountering stones here, I opted to place a 3-0 PDS suture at the neck of the gallbladder and this was affected successfully. I then opened up the proximal side of the neck of the gallbladder as it tapered down to the cystic duct. A few skin gallstones were released we then brought onto another 3-0 PDS loop suture and placed around the cystic duct stump. We are very satisfied with the conclusion and management of this situation. Photos were taken the gallbladder was then completely divided with electrocautery from the residual of the cystic duct. Bladder was placed in a specimen bag, and removed from the patient through the supraumbilical port site incision with minimal stretching of the fascia. The specimen was sent to pathology for further analysis. Our attention back to the subhepatic, in particular the venous previously described at the midportion of hepatic plate. We placed a piece of Surgicel but this was unsuccessful. We then brought onto the field to Tisseal, dated it and deployed it into this area. We then placed the Surgicel in this area level the patient out and observe this area for some period of time. Eventually without any additional compression, the oozing appeared to todd. We spent some time reinspecting the viscera previously described in the early portion of this operative dictation was no evidence of visceral injury. We placed a large Cristopher drain through 1 of the subcostal port sites and secured at the skin with 2-0 Prolene suture after trimming the drain length. We reinspected the subhepatic space and felt that the bleeding had sufficiently abated. Photos were taken. The patient remained hemodynamically stable throughout this time. She did not have a Peña catheter during the operation. Ilion the operation this point was complete. All ports removed under direct visualization pneumoperitoneum evacuated and wounds closed with 3-0 Vicryl 0 Vicryl benzoin and Steri-Strips. Drain was hooked to bulb suction. Patient tolerated procedure well, taken to recovery room in stable condition
[2016-09-26] MEDS ORDERED: ACETAMINOPHEN INJ/PF 1000 MG/100 ML SDV IV SCH (18:00)
[2016-09-26] MEDS ORDERED: METOPROLOL TARTRATE PF/INJ 5 MG/5 ML SDV IV PRN (18:51)
[2016-09-26] MEDS ORDERED: FUROSEMIDE INJ/PF 40 MG/4 ML SDV IV ONE (20:00)
[2016-09-26] MEDS: ACETAMINOPHEN 100 ML IV SCH (21:41)
[2016-09-26] MEDS: INSULIN LISPRO 100 UNIT/ML 3 ML VIAL SUBCUT PRN (22:26)
--- NOTE | 2016-09-27 01:39 | CONSULTATION REPORT E ---
Consultation Report NAME: ANNIE GOODE : 1940 AGE: 75Y DATE: 09/26/2016 401 A TO: AKILAH HARLEY M.D. FROM: Molly REGAN, Requesting Physician REASON FOR CONSULTATION: Patient with a history of diastolic heart failure in the past with acute cholecystitis with cholelithiasis, for preoperative cardiac risk assessment. HISTORY OF PRESENT ILLNESS: The patient is a 75-year-old female with a known history of hypertension and diabetes mellitus, who states that she started having nausea, vomiting and abdominal pain with fever, chills or rigors, and the patient came in and has been diagnosed as having acute cholecystitis with cholelithiasis and is for surgical removal of the same. She denies any chest pain or discomfort. There are no symptoms suggestive of congestive heart failure. She has a history of lymphoma which is in remission. There is no leg edema. There are no palpitations. There is no syncope. There is no PND, orthopnea or shortness of breath. The patient claims to be fairly active. PAST MEDICAL HISTORY: Positive for history of hypertension and diabetes mellitus and hypothyroidism. She is insulin-dependent diabetes mellitus. There is no history of renal failure. She was admitted here in October of 2014 with a diagnosis of CVA, but it was found that the patient had abnormal outpatient MRI of the brain and the patient was admitted with progressive weakness and difficulty ambulating, and she was diagnosis with a history of lymphoma. The lymphoma was diagnosed about 4 years and the last chemotherapy was 5-6 years ago and a recent PET scan showed no evidence of disease. There is no recurrence of TIA or CVA symptoms. There is no history of chronic kidney disease. There is no history of WV, anginal symptoms or coronary artery disease. Although it is mentioned that the patient has diastolic heart failure, she denies any symptoms of heart failure in a long time. Her echo in 2014 shows that the patient's LV function is normal. She has LV diastolic dysfunction. There is a mild amount of mitral regurgitation. There is no aortic stenosis or aortic regurgitation. There is no significant pulmonary hypertension. There is no wall motion abnormality. PAST SURGICAL HISTORY: Right hip fracture surgery. She has had lymph node biopsy for diagnosis of lymphoma and she has also had hysterectomy. ALLERGIES: The patient has no known allergies. FAMILY HISTORY: She states that her mother of an WV at age 80. SOCIAL HISTORY: The patient does not smoke. There is no history of EtOH abuse. DISPOSITION: The patient is a full code. Her is her surrogate healthcare decision maker. MEDICATIONS: 1. Acetaminophen injection 1000 mg in 10 mL IV q.6 h. 2. She is on hypoglycemic precautions with glutose 40% gel 15 gm and 30 gm p.o. respectively p.r.n. hypoglycemia. 3. She is on hypoglycemic precautions with dextrose 50% 12.5 gm IV and 25 gm IV p.r.n. 4. She is on Invanz 1 gm p.m. IV piggyback x1. 5. She did get Lasix 40 mg IV x1 which has been discontinued. 6. Glucagon 1 mg IM p.r.n. 7. She got a bolus of normal saline 1000 mL IV bolus. 8. She is on Ringer's lactate at 150 mL/hr. 9. She got metoprolol 5 mg IV push x1. 10. She is on metoprolol 5 mg IV q.6 h. p.r.n. 11. She is on morphine 2 mg IV q.4 h. p.r.n. 12. She is on Zofran 4 mg IV x1 and 4 mg q.4 h. p.r.n. 13. She is on piperacillin/tazobactam (Zosyn) 3.375 mg IV q.6 h. REVIEW OF SYSTEMS: CONSTITUTIONAL: Has some fever, chills and rigors. Complains of generalized fatigue and headache. HEENT: Head: No history of head injury and no history of dizziness. Eyes: No history of amblyopia or diplopia. No history of amaurosis fugax. Ears: No history of hearing loss, no history of tinnitus, no history of recurrent ear infections. Nose: No history of nosebleeds. No history of nasal polyps. No history of hay fever. Mouth: No history of altered taste sensation. She states her mouth feels dry. There are no ulcers in the mouth or tongue. Throat: There is no odynophagia or dysphagia. There are no recurrent sore throats. SKIN: There are no skin rashes. There is petechia or ecchymosis. There is no pruritus. There is no yellowish discoloration of the skin. NECK: No history of painless or painful swelling of the neck. No history of goiter. No history of neck pain. LUNGS: No history of asthma or COPD. No history of sleep apnea. No history of wheezing, cough or sputum production. No pleuritic chest pain. No history of pulmonary embolism. No history of sleep apnea. No history of hemoptysis. CARDIAC: History of hypertension. No history of coronary artery disease. As per patient, she has not had any heart failure, although it is mentioned that she has a history of diastolic heart failure. There is no history of coronary artery disease, no history of [place], anginal symptoms or coronary artery disease. There is no history of cardiac arrhythmia. No history of PND or orthopnea or leg edema. No history of syncope or near syncope. CENTRAL NERVOUS SYSTEM: Past history of CVA with no recurrence. The CVA was diagnosed 10/25/2014 and the patient has completely recovered. There is no history of seizures, headaches or migraines. No history of gait imbalance. PSYCHIATRIC: No history of anxiety or depression. MUSCULOSKELETAL: Denies arthritis or collagen vascular disease. ENDOCRINE: History of diabetes mellitus type 2, insulin-dependent. No history of polydipsia or polyuria. History of hypothyroidism present, on replacement. No history of hirsutism. No history of excessive sweating. RENAL: No history of chronic kidney disease. No symptoms of UTI. No history of hematuria, polyuria or dysuria. GASTROINTESTINAL: History of abdominal pain and diagnosis of acute cholecystitis with cholelithiasis. No altered bowel movements. No bleeding from the gums. No history of jaundice, no history of cirrhosis of the liver and no hepatitis. No fatty food intolerance in the past but recently the patient states that her symptoms started after eating fatty food. HEMATOLOGICAL: No history of bleeding diathesis. No history of clotting disorders. History of lymphoma; seems to be in remission. VASCULAR: No history of calf or buttock claudication. No history of DVT. PHYSICAL EXAMINATION: GENERAL: At present the patient is in no acute distress. Her pain is controlled with medication. She is well built, well nourished. VITAL SIGNS: She is afebrile with a temperature of 98 degrees Fahrenheit, pulse is 68 beats per minute, blood pressure is 162/52, respirations are 16 per minute, 02 sats are 91% on room air. HEENT: Head is atraumatic, normocephalic. Eyes: Pupils are equal, round, regular, reactive to light and accommodation. Extraocular movements are normal. There is no conjunctival pallor. There is no scleral icterus. Ears: Tympanic membranes are intact. External auditory canals are clear. Nose: There is no deviated nasal septum. There is no inflammation of the nasal mucous membranes. Mouth: Mucous membranes of the mouth are moist. Tongue is moist. There are no ulcers. There is no bleeding from the gums. Throat: There is no redness of the oropharynx. There are no exudates. SKIN: There are no skin rashes. There is no petechia or ecchymosis. There are no skin lesions. NECK: Supple. There is no JVD. Carotids are equal. There is no bruit. There is no goiter. There is no lymphadenopathy. Trachea is central. LUNGS: Clear to auscultation and percussion. There is no chest wall tenderness. HEART: S1 and S2 are heard. There is no S3 gallop. There is no S4 gallop. There is a systolic murmur in the left sternal border and the apex without radiation. There is no rub. ABDOMEN: Soft. There is some mild tenderness in the right upper quadrant. There is rebound, guarding or rigidity. There is no hepatosplenomegaly. Bowel sounds are well heard. EXTREMITIES: Femorals are slightly diminished. Leg pulses are slightly diminished. There is no pedal edema. There is no DVT or cellulitis. There is no calf tenderness. There is no cyanosis or clubbing. Capillary refill is normal. CENTRAL NERVOUS SYSTEM: The patient is conscious, awake, alert, oriented x3 with no focal deficits. PSYCHIATRIC: The patient's judgment and insight are intact. Her affect is normal. DIAGNOSTIC TEST RESULTS: The patient's EKG shows sinus rhythm with mild nonspecific ST-T changes. The patient's abdomen and pelvis CT shows cholecystitis with cholelithiasis. The patient's white count is 12,000, hemoglobin is 13.3, hematocrit is 40.3, and platelet count is 177,000. The patient's sodium is 140.6, potassium is 4.3, chloride is 100, CO2 is 31, the patient's BUN is 20, creatinine 0.67, GFR is greater than 60, glucose is 272. Her liver function tests are normal. Her magnesium is 2.0, calcium is 9.3, her TSH is 1.10. IMPRESSION: 1. Clinically no evidence of coronary artery disease. The patient with no anginal symptoms and good exercise tolerance. The patient denies any history of coronary artery disease, angina, [place] or any atypical chest pain. There are no symptoms of congestive heart failure. The patient has no palpitations, no arrhythmias and no syncope. 2. Acute cholecystitis with cholelithiasis. 3. Hypertension. 4. Diabetes mellitus. 5. Lymphoma in remission. 6. Hypothyroidism. 7. Preoperative cardiac risk assessment. RECOMMENDATIONS: Note that the patient will be an acceptable/mild cardiac risk for this procedure under general anesthesia. Discussed with Dr. Singh and Dr. Bill. Continue the patient's beta-vaishali and insulin and thyroid replacement. Would recommend the patient be started on aspirin later on. At present, no cardiac workup needed. Will sign off the case. Note: Moderately complex medical decision making involved in this case. The patient was seen at 8:30 a.m. and more than 50% of the time spent on direct patient care. Her medications have been reviewed and lab tests and EKG and abdominal CT have been reviewed and discussed with the patient. Note, 40 minutes spent on the patient with 50% of the time spent on direct patient care. ADDENDUM: The patient is a FULL CODE. Her is her surrogate healthcare decision maker. Will sign off the case. Please call me if cardiology services are required. Thanking you. DICTATING PHYSICIAN: AKILAH HARLEY M.D. [id number] PHY#: [id number] ID: [id number] JOB#: [id number] ACCT: [id number] cc:AKILAH HARLEY M.D. >
[2016-09-27] MEDS: PIPERACILLIN SODIUM/TAZOBACTAM 3.375 GM in NORMAL SALINE 100 ML IV SCH ×4 (03:03→20:54)
[2016-09-27] MEDS: ACETAMINOPHEN 100 ML IV SCH ×4 (04:13→22:19)
[2016-09-27] MEDS: RINGERS SOLUTION,LACTATED 1,000 ML IV PRN (04:16)
--- NOTE | 2016-09-27 08:24 | PDOC PROGRESS REPORT ---
Subjective Progress Note for:: 09/27/16 Subjective:: Patient is postop day 1, doing well, seems to be less nauseous Physical Exam Vital Signs: Temp Pulse Resp BP Pulse Ox 98.3 F 75 20 168/55 H 93 09/27/16 03:34 09/27/16 07:00 09/27/16 03:34 09/27/16 03:34 09/27/16 03:34 Intake & Output 09/26/16 09/27/16 09/28/16 06:59 06:59 06:59 Intake Total 2850 Output Total 3275 Balance -425 General appearance: PRESENT: no acute distress, well-developed, well-nourished Head exam: PRESENT: atraumatic, normocephalic Eye exam: PRESENT: conjunctiva pink, EOMI, PERRLA. ABSENT: scleral icterus Ear exam: PRESENT: normal external ear exam Mouth exam: PRESENT: moist, tongue midline Neck exam: ABSENT: carotid bruit, JVD, lymphadenopathy, thyromegaly Respiratory exam: PRESENT: clear to auscultation dinora. ABSENT: rales, rhonchi, wheezes Cardiovascular exam: PRESENT: RRR. ABSENT: diastolic murmur, rubs, systolic murmur Pulses: PRESENT: normal dorsalis pedis pul Vascular exam: PRESENT: normal capillary refill GI/Abdominal exam: PRESENT: normal bowel sounds, soft. ABSENT: distended, guarding, mass, organolmegaly, rebound, tenderness Rectal exam: PRESENT: deferred Extremities exam: PRESENT: full ROM. ABSENT: calf tenderness, clubbing, pedal edema Neurological exam: PRESENT: alert, awake, oriented to person, oriented to place , oriented to time, oriented to situation, CN II-XII grossly intact. ABSENT: motor sensory deficit Psychiatric exam: PRESENT: appropriate affect, normal mood. ABSENT: homicidal ideation, suicidal ideation Skin exam: PRESENT: dry, intact, warm. ABSENT: cyanosis, rash Results Impressions: Abdomen/Pelvis CT 09/26/16 02:57 IMPRESSION: Distended gallbladder with gallstones and pericholecystic fluid, suggestive of acute calculous cholecystitis. Dilated biliary tree, choledocholithiasis cannot be excluded. Trace ascites. Assessment & Plan - Diagnosis (1) T-cell lymphoma Is this a current diagnosis for this admission?: YesPlan: As noted previously hold on chemotherapy, we will most likely only restart when she has progression. We will see her next as an outpatient. - Time Time Spent with patient: 15-24 minutes Critical Time spent with patient: 15-24 minutes
[2016-09-27] MEDS: INSULIN LISPRO 100 UNIT/ML 3 ML VIAL SUBCUT PRN ×3 (08:46→22:14)
[2016-09-27] MEDS ORDERED: NORMAL SALINE 1000 ML 1,000 ML IV PRN (12:32)
[2016-09-27] MEDS ORDERED: ACETAMINOPHEN 325 MG TABLET PO PRN (12:39)
--- NOTE | 2016-09-27 12:56 | PDOC PROGRESS REPORT ---
Subjective Subjective:: Patient feels comfortable, no nausea or vomiting. Physical Exam Vital Signs: Temp Pulse Resp BP Pulse Ox 98.3 F 75 20 168/55 H 93 09/27/16 03:34 09/27/16 07:00 09/27/16 03:34 09/27/16 03:34 09/27/16 03:34 Intake & Output 09/26/16 09/27/16 09/28/16 06:59 06:59 06:59 Intake Total 2850 Output Total 3275 Balance -425 Respiratory exam: PRESENT: clear to auscultation dinora Cardiovascular exam: PRESENT: RRR GI/Abdominal exam: PRESENT: normal bowel sounds, soft, other - incisions c/d/i; drain in place in the RUQ with small amount of serosanguinous fluid Results Impressions: Abdomen/Pelvis CT 09/26/16 02:57 IMPRESSION: Distended gallbladder with gallstones and pericholecystic fluid, suggestive of acute calculous cholecystitis. Dilated biliary tree, choledocholithiasis cannot be excluded. Trace ascites. Assessment & Plan - Diagnosis (1) Acute cholecystitis Is this a current diagnosis for this admission?: Yes - Plan Summary Plan Summary: A/ POD #1 after laparoscopic cholecystectomy for acute cholecystitis 'Patient comfortable VSS Physical exam unremarkable MARCUS drain with small (20 cc) of serosanguinous fluid Diet tolerated Plan: Regular diet Peña out today Decrease IVF 50 cc/hr Tylernol/Aleve prn for pain, stop narcotics
[2016-09-27] MEDS: NAPROXEN 250 MG TABLET PO PRN ×2 (13:30→18:24)
--- NOTE | 2016-09-27 14:41 | PDOC PROGRESS REPORT ---
Subjective Progress Note for:: 09/27/16 Subjective:: This is a follow-up visit for management of comorbid medical conditions. Patient has a history of diabetes and her blood sugars have been elevated today. She is status post cholecystectomy with a drain still in place. Physical Exam Vital Signs: Temp Pulse Resp BP Pulse Ox 98.3 F 75 20 168/55 H 93 09/27/16 03:34 09/27/16 07:00 09/27/16 03:34 09/27/16 03:34 09/27/16 03:34 Intake & Output 09/26/16 09/27/16 09/28/16 06:59 06:59 06:59 Intake Total 2850 Output Total 3275 Balance -425 GENERAL: This is a well-developed well-nourished appearing elderly white female resting in bed currently in no acute distress. HEART: Regular rate and rhythm. No murmurs, rubs or gallops. LUNGS: Clear to auscultation bilaterally with equal rise and fall of the chest. ABDOMEN: Soft, nontender, nondistended with normoactive bowel sounds. MARCUS drain is in place with minimal sanguinous fluid EXTREMETIES: No clubbing, cyanosis or edema. 2+ peripheral pulses bilaterally. NEURO: Awake, alert and oriented 3. Cranial nerves II through XII are grossly intact. Results Impressions: Abdomen/Pelvis CT 09/26/16 02:57 IMPRESSION: Distended gallbladder with gallstones and pericholecystic fluid, suggestive of acute calculous cholecystitis. Dilated biliary tree, choledocholithiasis cannot be excluded. Trace ascites. Assessment & Plan - Diagnosis (1) Diabetes mellitus type 1 Qualifiers: Diabetes mellitus complication status: with ophthalmic complications Diabetes mellitus complication detail: with diabetic retinopathy Diabetic retinopathy severity: with unspecified retinopathy severity Diabetes mellitus macular edema: macular edema presence unspecified Laterality: bilateral Qualified Code(s): E10.319 - Type 1 diabetes mellitus with unspecified diabetic retinopathy without macular edema Is this a current diagnosis for this admission?: YesPlan: Continue sliding scale insulin. Nighttime Lantus. Will hold daytime Lantus for now. Based on her blood sugars in the morning we can resume that tomorrow as well. (2) Hyperlipidemia Qualifiers: Hyperlipidemia type: unspecified Qualified Code(s): E78.5 - Hyperlipidemia, unspecified Is this a current diagnosis for this admission?: YesPlan: resume statin (3) Hypothyroid Qualifiers: Hypothyroidism type: unspecified Qualified Code(s): E03.9 - Hypothyroidism, unspecified Is this a current diagnosis for this admission?: YesPlan: Resume Synthroid (4) Hypertension Plan: Home medications of metoprolol and lisinopril. - Time Time Spent with patient: 15-24 minutes
[2016-09-27] MEDS ORDERED: INSULIN GLARGINE,HUM.REC.ANLOG 1,000 UNIT/10 ML UNIT SUBCUT SCH (22:00)
[2016-09-27] MEDS ORDERED: INSULIN GLARGINE,HUM.REC.ANLOG 300 UNIT/3 ML INSULN.PEN SUBCUT SCH (22:00)
[2016-09-27] MEDS ORDERED: ATORVASTATIN CALCIUM 80 MG TABLET PO SCH (22:00)
[2016-09-27] MEDS ORDERED: LISINOPRIL 5 MG TABLET PO SCH (22:00)
[2016-09-27] MEDS: GABAPENTIN 300 MG CAPSULE PO SCH (22:05)
[2016-09-27] MEDS: METOPROLOL TARTRATE 25 MG TABLET PO SCH (22:06)
[2016-09-28] MEDS: PIPERACILLIN SODIUM/TAZOBACTAM 3.375 GM in NORMAL SALINE 100 ML IV SCH ×2 (02:44→10:25)
[2016-09-28] MEDS ORDERED: ACETAMINOPHEN 100 ML IV ONE (04:00)
[2016-09-28] MEDS: GABAPENTIN 300 MG CAPSULE PO SCH ×2 (05:53→13:39)
[2016-09-28 05:55] LABS: ABSOLUTE BASOPHILS # (AUTO) 0.1 10^3/uL (0.0-0.2); ABSOLUTE EOSINOPHILS # (AUTO) 0.3 10^3/uL (0.0-0.6); ABSOLUTE LYMPHOCYTES (AUTO) 1.5 10^3/uL (0.5-4.7); ABSOLUTE MONOCYTES (AUTO) 0.9 10^3/uL (0.1-1.4); ABSOLUTE NEUT (AUTO) 8.4 10^3/uL (1.7-8.2); BASOPHILS % (AUTO) 0.5 % (0-2); EOSINOPHILS % (AUTO) 3.1 % (0-6); HEMATOCRIT 34.3 % (36.0-47.0); HGB HCT DIFFERENCE -0.7; LYMPHOCYTES % (AUTO) 13.1 % (13-45); MEAN CORPUSCULAR HEMOGLOBIN 30.3 pg (27.0-33.4); MEAN CORPUSCULAR HGB CONC 32.6 g/dL (32.0-36.0); MEAN CORPUSCULAR VOLUME 93 fl (80-97); MONOCYTES % (AUTO) 7.9 % (3-13); RED BLOOD COUNT 3.69 10^6/uL (3.72-5.28); SEGMENTED NEUTROPHILS % (AUTO) 75.4 % (42-78); WHITE BLOOD COUNT 11.1 10^3/uL (4.0-10.5)
[2016-09-28 06:10] LABS: HEMOGLOBIN 11.2 g/dL (12.0-15.5)
[2016-09-28 06:25] LABS: ANION GAP 8 (5-19); BLOOD UREA NITROGEN 20 mg/dL (7-20); CALCIUM 8.5 mg/dL (8.4-10.2); CARBON DIOXIDE 30 mmol/L (22-30); CHLORIDE 104 mmol/L (98-107); CREATININE RESULT 0.71 mg/dL (0.52-1.25); GLUCOSE 172 mg/dL (75-110); POTASSIUM 3.9 mmol/L (3.6-5.0); SODIUM 141.8 mmol/L (137-145)
[2016-09-28] MEDS ORDERED: LEVOTHYROXINE SODIUM 0.1 MG TABLET PO SCH (08:00)
[2016-09-28] MEDS ORDERED: ACETAMINOPHEN 100 ML IV SCH (09:00)
--- NOTE | 2016-09-28 09:43 | PDOC PROGRESS REPORT ---
Subjective Subjective:: Patient feels comfortable, no nausea or vomiting. She is tolerating regular diet well. Physical Exam Vital Signs: Temp Pulse Resp BP Pulse Ox 98.4 F 69 16 129/40 H 90 L 09/28/16 03:46 09/28/16 03:46 09/28/16 03:46 09/28/16 03:46 09/28/16 03:46 Intake & Output 09/27/16 09/28/16 09/29/16 06:59 06:59 06:59 Intake Total 2850 1892 Output Total 3275 460 Balance -425 1432 Respiratory exam: PRESENT: clear to auscultation dinora Cardiovascular exam: PRESENT: RRR GI/Abdominal exam: PRESENT: normal bowel sounds, soft, other - all incisions are c/d/il RUQ abdominal MARCUS drain filled with serosanguinous fluid Results Laboratory Results: 09/28/16 04:52 09/28/16 04:52 09/28/16 09/28/16 04:52 04:52 WBC 11.1 H RBC 3.69 L Hgb 11.2 L D Hct 34.3 L MCV 93 MCH 30.3 MCHC 32.6 RDW 15.0 H Plt Count 153 Seg Neutrophils % 75.4 Lymphocytes % 13.1 Monocytes % 7.9 Eosinophils % 3.1 Basophils % 0.5 Absolute Neutrophils 8.4 H Absolute Lymphocytes 1.5 Absolute Monocytes 0.9 Absolute Eosinophils 0.3 Absolute Basophils 0.1 Sodium 141.8 Potassium 3.9 Chloride 104 Carbon Dioxide 30 Anion Gap 8 BUN 20 Creatinine 0.71 Est GFR ( Amer) > 60 Est GFR (Non-Af Amer) > 60 Glucose 172 H Calcium 8.5 Impressions: Abdomen/Pelvis CT 09/26/16 02:57 IMPRESSION: Distended gallbladder with gallstones and pericholecystic fluid, suggestive of acute calculous cholecystitis. Dilated biliary tree, choledocholithiasis cannot be excluded. Trace ascites. Assessment & Plan - Diagnosis (1) Acute cholecystitis Is this a current diagnosis for this admission?: Yes - Plan Summary Plan Summary: A/ POD#2 after laparoscopic cholecystectomy Patient doing well and tolerateing po well blood work WNL PE unremarkable P/ D/C home today f/u with Dr. Singh within 1 week regular diet activities as tolerated sponge bath only UNTIL DRAIN IS IN PLACE MARCUS drain care by nurses No wound care needed
[2016-09-28] MEDS ORDERED: CITALOPRAM HYDROBROMIDE 20 MG TABLET PO SCH (10:00)
[2016-09-28 10:56] VITALS: BP 136/50
[2016-09-28] MEDS: METOPROLOL TARTRATE 25 MG TABLET PO SCH (11:21)
--- NOTE | 2016-09-28 11:36 | DISCHARGE SUMMARY E ---
Discharge Summary NAME: ANNIE GOODE : 1940 AGE: 75Y ADMITTED: 09/26/2016 DISCHARGED: 09/28/2016 FINAL DIAGNOSES: 1. Cholelithiasis. 2. Acute cholecystitis, symptomatic. PROCEDURE: Laparoscopic cholecystectomy on 09/26/2016. COMPLICATIONS: None. HOSPITAL COURSE: This is a 75-year-old female who presented to the emergency room with a history of right upper quadrant pain and found to have acute cholecystitis on CAT scan and ultrasound. The patient was taken to surgery on 09/26/2016 and she underwent an uneventful laparoscopic cholecystectomy. A Moshe-Shirley drain was placed because of a small amount of intraoperative bleeding. The patient's postop course was uncomplicated. The vital signs remained stable. Her diet was advanced and on the day of discharge the patient had no complaints. She was tolerating a regular liquid well and her vital signs were stable. Her physical exam was unremarkable. Her abdomen was soft. Wound incision was clean, dry and intact. The patient had a Moshe-Shirley drain in right upper quadrant with serosanguineous fluid. Blood work done on the same day revealed a white blood cell count of 6 with a hemoglobin of 11 and 34 which dropped from 13 and 40 on admission. DISPOSITION: The patient was discharged to home on 09/28/2016. She was given a follow up appointment with Dr. Singh in the office within a week. She was instructed to sponge bath only while the Moshe-Shirley drain is in place. She is to be on a regular diet and activity as tolerated. She was to be back on her own medication. She was given Tylenol 325 p.o. q.6 h. for pain and Aleve 220 p.o. b.i.d. for pain only. DICTATING PHYSICIAN: COMFORT RUIZ M.D. [id number] PHY#: [id number] ID: [id number] JOB#: [id number] ACCT: [id number] cc:COMFORT RUIZ M.D., E. R. > MTDD
--- NOTE | 2016-09-28 12:44 | RADIOLOGY REPORT (SQ) ---
EXAM DESCRIPTION: CHEST PA/LAT COMPLETED DATE/TIME: 09/28/2016 11:45 am REASON FOR STUDY: LOW O2 STAT COMPARISON: May 2015 EXAM PARAMETERS: NUMBER OF VIEWS: two views TECHNIQUE: Digital Frontal and Lateral radiographic views of the chest acquired. RADIATION DOSE: NA LIMITATIONS: none FINDINGS: LUNGS AND PLEURA: No opacities, masses or pneumothorax. No pleural effusion. Chronic appe aring changes appears stable. MEDIASTINUM AND HILAR STRUCTURES: No masses or contour abnormalities. HEART AND VASCULAR STRUCTURES: The configuration of the heart and mediastinal structures is unchanged . BONES: No acute findings. HARDWARE: Port-A-Cath is unchanged in position. OTHER: No other significant finding. IMPRESSION: No significant interval change. No acute findings. Other findings as noted above TECHNICAL DOCUMENTATION: JOB ID: [id number] [employer]- All Rights Reserved
--- NOTE | 2016-09-28 13:37 | PDOC PROGRESS REPORT ---
Subjective Progress Note for:: 09/28/16 Subjective:: This is a follow-up visit for management of comorbid medical conditions. Patient has a history of diabetes and her blood sugars have been elevated today. She is status post cholecystectomy with a drain still in place. She has no complaints. Her intends to care for her at home. She denies any shortness of breath. Physical Exam Vital Signs: Temp Pulse Resp BP Pulse Ox 98 F 69 12 136/50 H 95 09/28/16 10:44 09/28/16 10:44 09/28/16 10:44 09/28/16 10:44 09/28/16 10:44 Intake & Output 09/27/16 09/28/16 09/29/16 06:59 06:59 06:59 Intake Total 2850 1892 Output Total 3275 460 Balance -425 1432 Results Laboratory Results: 09/28/16 04:52 09/28/16 04:52 09/28/16 09/28/16 04:52 04:52 WBC 11.1 H RBC 3.69 L Hgb 11.2 L D Hct 34.3 L MCV 93 MCH 30.3 MCHC 32.6 RDW 15.0 H Plt Count 153 Seg Neutrophils % 75.4 Lymphocytes % 13.1 Monocytes % 7.9 Eosinophils % 3.1 Basophils % 0.5 Absolute Neutrophils 8.4 H Absolute Lymphocytes 1.5 Absolute Monocytes 0.9 Absolute Eosinophils 0.3 Absolute Basophils 0.1 Sodium 141.8 Potassium 3.9 Chloride 104 Carbon Dioxide 30 Anion Gap 8 BUN 20 Creatinine 0.71 Est GFR ( Amer) > 60 Est GFR (Non-Af Amer) > 60 Glucose 172 H Calcium 8.5 09/26/16 11:40 Clean Catch Midstream Urine Culture - Final NO GROWTH 2 DAYS Impressions: Abdomen/Pelvis CT 09/26/16 02:57 IMPRESSION: Distended gallbladder with gallstones and pericholecystic fluid, suggestive of acute calculous cholecystitis. Dilated biliary tree, choledocholithiasis cannot be excluded. Trace ascites. Chest X-Ray 09/28/16 11:16 IMPRESSION: No significant interval change. No acute findings. Other findings as noted above Assessment & Plan - Diagnosis (1) Diabetes mellitus type 1 Qualifiers: Diabetes mellitus complication status: with ophthalmic complications Diabetes mellitus complication detail: with diabetic retinopathy Diabetic retinopathy severity: with unspecified retinopathy severity Diabetes mellitus macular edema: macular edema presence unspecified Laterality: bilateral Qualified Code(s): E10.319 - Type 1 diabetes mellitus with unspecified diabetic retinopathy without macular edema Is this a current diagnosis for this admission?: YesPlan: Continue insulin at home doses. (2) Hyperlipidemia Qualifiers: Hyperlipidemia type: unspecified Qualified Code(s): E78.5 - Hyperlipidemia, unspecified Is this a current diagnosis for this admission?: YesPlan: resume statin (3) Hypothyroid Qualifiers: Hypothyroidism type: unspecified Qualified Code(s): E03.9 - Hypothyroidism, unspecified Is this a current diagnosis for this admission?: YesPlan: Resume Synthroid (4) Hypertension Plan: Home medications of metoprolol and lisinopril. - Time Time Spent with patient: 15-24 minutes - Inpatient Certification I certify that my determination is in accordance with my understanding of Medicare's requirements for reasonable and necessary INPATIENT services [42 CFR 412.3e].: Yes Medical Necessity: Need Close Monitoring Due to Risk of Patient Decompensation
[2016-09-28] MEDS: INSULIN LISPRO 100 UNIT/ML 3 ML VIAL SUBCUT PRN (13:39)
== END 2016-09-28 16:45 | disposition home or self-care (01) | DRG 418 ==
LOC: ER 00:31 → EH 04:44 → UNDOADMIN 04:44 → 4N 04:44 → EH 06:32 → UNDODISIN 09-28 16:45
PROVIDERS: ADMIT Surgery; ATTEND Surgery
PROC: 0FT44ZZ Resection of Gallbladder, Percutaneous Endoscopic Approach (ICD-10-PCS; principal; 2016-09-26 14:15)
DX: K80.00 Calculus of gallbladder with acute cholecystitis without obstruction (principal); I50.32 Chronic diastolic (congestive) heart failure; K66.0 Peritoneal adhesions (postprocedural) (postinfection); I11.0 Hypertensive heart disease with heart failure; E10.319 Type 1 diabetes mellitus with unspecified diabetic retinopathy without macular edema; E78.5 Hyperlipidemia, unspecified; E03.9 Hypothyroidism, unspecified; Z85.72 Personal history of non-Hodgkin lymphomas
CPT/HCPCS: 36415; 71020; 74177; 790; 80048; 80053; 81001; 82962; 83690; 83735; 84443; 85025; 87040; 87086; 88304; 93005; 93010; 94799; 96361; 96374; 96375; 99285; J0131; J0330; J1335; J1815; J1940; J2250; J2270; J2405; J2543; J2704; J3010; J3490; J7030; J7120

== ENCOUNTER → 2016-12-04 | Outpatient (CLI) | payer MEDICARE, OTHER ==
--- NOTE | 2016-12-05 14:35 | RADIOLOGY REPORT (SQ) ---
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 TECHNIQUE: Blood glucose level was verified. Above dose of FDG was injected intravenously. 2-D seg mented attenuation correction images were obtained from the base of the skull to the midthighs. Nonc ontrast CT images were obtained for attenuation correction and fusion with emission images. CT image s were performed without oral or intravenous contrast and are not sensitive for parenchymal lesions. A series of overlapping emission PET images were obtained. Images reviewed and manipulated at [facility] work station by the radiologist. Images stored on PACS. LIMITATIONS: None. FINDINGS: HEAD AND NECK: No areas of abnormal metabolic activity in the soft tissues of the head and neck. CHEST: No areas of abnormal metabolic activity in the chest. ABDOMEN AND PELVIS: No areas of abnormal metabolic activity in the abdomen or pelvis. Expected physi ologic activity is present in the genitourinary system and bowel. PROXIMAL LOWER EXTREMITIES: No areas of abnormal metabolic activity in the soft tissues of the lower extremities. BONES: No abnormal metabolic activity in the visualized skeleton. ADDITIONAL CT FINDINGS: Right permanent central line tip superior vena cava. Diffuse atherosclerotic calcification of the carotid bifurcations, coronary arteries, abdominal aortic and major branches. No abdominal aortic aneurysm. Post hysterectomy. Left total hip replacement. OTHER: Blood pool activity 1.75 SUV, liver background activity 2.4 SUV. IMPRESSION: No PET-CT evidence of recurrent lymphoma TECHNICAL DOCUMENTATION: JOB ID: [id number]- All Rights Reserved
== END ==
LOC: RAD 14:28
PROVIDERS: ATTEND Internal Medicine
DX: C84.70 Anaplastic large cell lymphoma, ALK-negative, unspecified site (principal)
CPT/HCPCS: 78815; A9552

== ENCOUNTER → 2017-06-06 | Outpatient (CLI) | payer MEDICARE, OTHER ==
--- NOTE | 2017-06-08 09:34 | RADIOLOGY REPORT (SQ) ---
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 TECHNIQUE: Blood glucose level was verified. Above dose of FDG was injected intravenously. 2-D seg mented attenuation correction images were obtained from the base of the skull to the midthighs. Nonc ontrast CT images were obtained for attenuation correction and fusion with emission images. CT image s were performed without oral or intravenous contrast and are not sensitive for parenchymal lesions. A series of overlapping emission PET images were obtained. Images reviewed and manipulated at [facility] work station by the radiologist. Images stored on PACS. LIMITATIONS: None. FINDINGS: HEAD AND NECK: No areas of abnormal metabolic activity in the soft tissues of the head and neck. CHEST: No areas of abnormal metabolic activity in the chest. ABDOMEN AND PELVIS: No areas of abnormal metabolic activity in the abdomen or pelvis. Expected physi ologic activity is present in the genitourinary system and bowel. PROXIMAL LOWER EXTREMITIES: No areas of abnormal metabolic activity in the soft tissues of the lower extremities. BONES: No abnormal metabolic activity in the visualized skeleton. ADDITIONAL CT FINDINGS: Right sided permanent central line tip superior vena cava.Heavily calcified c oronary arteries, carotid bifurcations, and aorto iliac vessels OTHER: Liver background activity 2.1 SUV. Blood pool background activity 0.96 SUV IMPRESSION: No hypermetabolic lesions worrisome for recurrent lymphoma TECHNICAL DOCUMENTATION: JOB ID: [id number] [employer]- All Rights Reserved Reading location - IP/workstation name: [email or web address]
== END ==
LOC: RAD 06-04 14:40
PROVIDERS: ATTEND Internal Medicine
DX: C84.70 Anaplastic large cell lymphoma, ALK-negative, unspecified site (principal); Z53.09 Procedure and treatment not carried out because of other contraindication; R73.9 Hyperglycemia, unspecified
CPT/HCPCS: 78815; A9552

== ENCOUNTER → 2017-12-18 | Outpatient (CLI) | payer MEDICARE, OTHER ==
--- NOTE | 2017-12-18 13:33 | RADIOLOGY REPORT (SQ) ---
EXAM DESCRIPTION: CT CHEST WITH; CT ABD/PELVIS WITH IV ONLY COMPLETED DATE/TIME: 12/18/2017 1:13 pm REASON FOR STUDY: C84.45 PRPH T-CELL LYMPH, NOT CLASS, NODES OF ING RGN AND LOW LIMB C84.45 PRPH T- CELL LYMPH, NOT CLASS, NODES OF ING RGN AND LO COMPARISON: CT chest 02/07/2014 CT abdomen pelvis 09/26/2016 PET-CT 12/04/2016, 06/06/2017 CONTRAST TYPE AND DOSE: contrast/concentration: Isovue 350.00 mg/ml; Total Contrast Delivered: 66.0 ml; Total Saline Delivered: 65.0 ml RENAL FUNCTION: Creatinine 0.6 TECHNIQUE: CT scan of the chest performed using helical scanning technique with dynamic intravenous contrast injection. Images reviewed with lung, soft tissue and bone windows. Reconstructed coronal a nd sagittal MPR images reviewed. All images stored on PACS. CT scan of the abdomen and pelvis performed with intravenous and without oral contrastusing helical s shaun technique with dynamic intravenous contrast injection. Images reviewed with lung, soft tissu e and bone windows. Reconstructed coronal and sagittal MPR images reviewed. Delayed images for eval uation of the urinary system also acquired and evaluated. All images stored on PACS. All CT scanners at this facility use dose modulation, iterative reconstruction, and/or weight based d osing when appropriate to reduce radiation dose to as low as reasonably achievable (ALARA). [facility]: Dose Right [facility]: CareDose [facility]: Dose Right [facility]: Teradose 4D [facility]: [employer] RADIATION DOSE: CT Rad equipment meets quality standard of care and radiation dose reduction techniq ues were employed. CTDIvol: 4.4 - 6.1 mGy. DLP: 758 mGy-cm. . LIMITATIONS: None. FINDINGS: CHEST: LUNGS AND PLEURA: Obstructive lung disease with enlarged airspaces. Chronic bronchiectasis in the me dial aspect right middle lobe and lingula, similar compared to studies dating back to 2014. No pleur al effusion. No pneumothorax. Airways patent. HILAR AND MEDIASTINAL STRUCTURES: No identified masses or abnormal nodes. HEART AND VASCULAR STRUCTURES: No aneurysm or dissection. No central pulmonary emboli. No pericardi al effusion. Mild coronary artery calcification HARDWARE: Right permanent central line tip superior vena cava THYROID AND OTHER SOFT TISSUES: No masses. No adenopathy. BONES: No significant finding. OTHER: No other significant finding. ABDOMEN AND PELVIS: LIVER: Normal size. No masses. No dilated ducts. SPLEEN: Normal size. No focal lesions. PANCREAS: No masses. No significant calcifications. No adjacent inflammation or peripancreatic fluid collections. Pancreatic duct not dilated. GALLBLADDER: Post cholecystectomy ADRENAL GLANDS: No significant masses or asymmetry. RIGHT KIDNEY AND URETER: No solid masses. No significant calcification. No hydronephrosis or hydroure ter. LEFT KIDNEY AND URETER: No solid masses. 1 cm left midpole renal cortical cyst. No significant calc ification. No hydronephrosis or hydroureter. AORTA AND VESSELS: Heavily calcified abdominal aorta without aneurysm. Heavy atherosclerotic calcifi cation origins of visceral vessels, stable RETROPERITONEUM: No retroperitoneal adenopathy, hemorrhage or masses. BOWEL AND PERITONEAL CAVITY: No masses or inflammatory changes. No free fluid or peritoneal masses. No CT evidence of bowel obstruction APPENDIX: Surgically absent ABDOMINAL WALL: No masses. No hernias. PELVIS: No mass or free fluid. Normal bladder. Post hysterectomy BONES: Left total hip replacement OTHER: No other significant finding. IMPRESSION: No CT evidence of residual or recurrent lymphoma over the chest abdomen or pelvis TECHNICAL DOCUMENTATION: JOB ID: [id number] Quality ID # [id number]: Final reports with documentation of one or more dose reduction techniques (e.g., Au tomated exposure control, adjustment of the mA and/or kV according to patient size, use of iterative reconstruction technique) 2010 [employer]- All Rights Reserved Reading location - IP/workstation name: [email or web address]
== END ==
LOC: RAD 17:23
PROVIDERS: ATTEND Internal Medicine
DX: C84.45 Peripheral T-cell lymphoma, not elsewhere classified, lymph nodes of inguinal region and lower limb (principal)
CPT/HCPCS: 71260; 74177; 82565

== ENCOUNTER 2018-05-19 17:44 | Emergency (ER) | payer MEDICARE, OTHER ==
[2018-05-19] MEDS ORDERED: DIPH/PERTUSS(ACELL)/TETANUS VAC/PF 0.5 ML SYR (>=10YO) IM ONE (19:01)
[2018-05-19] MEDS ORDERED: ACETAMINOPHEN 325 MG TABLET PO ONE (19:02)
--- NOTE | 2018-05-19 19:13 | ER Document Report ---
ED General - General Chief Complaint: Head Injury Stated Complaint: FALL/HEAD PAIN Time Seen by Provider: 05/19/18 19:00 Primary Care Provider: NESS LUTZ MD [Primary Care Provider] - Follow up as needed Mode of Arrival: Ambulatory Information source: Patient, Relative, [facility] Records Notes: 77-year-old female with type 1 diabetes, hypertension, hyperlipidemia, congestive heart failure presents after a trip and fall just prior to arrival. Patient states that she was walking up the stairs when she tripped and fell backwards down 4 steps striking her head onto the concrete. witnessed the fall and denies any loss of consciousness. Patient did require help getting up but states that she has been walking around since that time. She is complaining of left-sided head pain but denies visual changes nausea, vomiting, difficulty walking, slurred speech, preceding chest pain, shortness of breath, dizziness. Patient is not on any blood thinning medications. She denies neck and back pain. TRAVEL OUTSIDE OF THE [place] IN LAST 30 DAYS: No - HPI Onset: Just prior to arrival Onset/Duration: Sudden Quality of pain: Throbbing Severity: Mild Associated symptoms: Headache. denies: Chest pain, Nausea, Vomiting, Shortness of breath, Weakness Exacerbated by: Denies Relieved by: Denies Similar symptoms previously: No Recently seen / treated by doctor: No - Related Data Allergies/Adverse Reactions: No Known Allergies Allergy (Verified 10/14/14 12:18) Past Medical History - General Information source: Patient, [facility] Records - Social History Smoking Status: Never Smoker Frequency of alcohol use: None Drug Abuse: None Lives with: Spouse/Significant other Family History: CAD, DM Patient has suicidal ideation: No Patient has homicidal ideation: No - Past Medical History Cardiac Medical History: Reports: Hx Congestive Heart Failure - diastolic dysfunction, Hx Hypercholesterolemia, Hx Hypertension - COZAAR-at bedtime Denies: Hx Atrial Fibrillation, Hx Coronary Artery Disease, Hx DVT, Hx Heart Attack, Hx Pulmonary Embolism Pulmonary Medical History: Denies: Hx Asthma, Hx Bronchitis, Hx COPD, Hx Pneumonia, Hx Sleep Apnea Neurological Medical History: Denies: Hx Cerebrovascular Accident, Hx Seizures Endocrine Medical History: Reports: Hx Diabetes Mellitus Type 1, Hx Hypothyroidism. 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 Denies: Hx Mastectomy, Hx Open Heart Surgery, Hx Pacemaker - Immunizations Hx Diphtheria, Pertussis, Tetanus Vaccination: No Review of Systems - Review of Systems Notes: REVIEW OF SYSTEMS: CONSTITUTIONAL : Denies fever, chills, or sweats. Denies recent illness. Denies weight loss, recent hospitalizations. EENT: Denies visual changes, eye pain. Denies sore throat, oral lesions, difficulty swallowing. CARDIOVASCULAR: Denies chest pain. Denies palpitations. Denies lower extremity edema. RESPIRATORY: Denies cough. Denies shortness of breath, wheezing. GASTROINTESTINAL: Denies abdominal pain or distention. Denies nausea, vomiting, or diarrhea. Denies blood in vomitus, stools, or per rectum. Denies black, tarry stools. Denies constipation. GENITOURINARY: Denies difficulty urinating, painful urination, frequency, blood in urine, or vaginal discharge. MUSCULOSKELETAL: Denies back or neck pain or stiffness. Denies joint pain or swelling. SKIN: + Abrasion left scalp, superficial abrasion right hand HEMATOLOGIC : Denies easy bruising or bleeding. LYMPHATIC: Denies swollen glands. NEUROLOGICAL: Denies confusion or altered mental status. Denies loss of consciousness. Denies dizziness or lightheadedness. Denies weakness or paralysis. Denies problems difficulty with ambulation, slurred speech. Denies sensory loss, numbness, or tingling. Denies seizures. PSYCHIATRIC: Denies anxiety or stress. Denies depression, suicidal ideation, or homicidal ideation. Denies visual or auditory hallucinations. Physical Exam - Vital signs Vitals: Temp Pulse Resp BP Pulse Ox 98.1 F 64 16 216/76 H 93 05/19/18 18:15 05/19/18 18:15 05/19/18 18:15 05/19/18 18:15 05/19/18 18:15 - Notes Notes: PHYSICAL EXAMINATION: GENERAL: Well-appearing, well-nourished and in no acute distress. GCS 15 HEAD: 3 x 3 cephalohematoma with an associated abrasion to the left parietal scalp EYES: Pupils equal round and reactive to light, extraocular movements intact, sclera anicteric, conjunctiva are normal. ENT: Nares patent, oropharynx clear without exudates. Moist mucous membranes. No hemanotympanum . No blood in nares. No dental fracture NECK: Normal range of motion, supple without lymphadenopathy. Trachea midline. No midline tenderness LUNGS: Breath sounds clear to auscultation bilaterally and equal. No wheezes rales or rhonchi. HEART: Regular rate and rhythm without murmurs. Pulses intact all throughout. ABDOMEN: Soft, nontender, nondistended abdomen. No guarding, no rebound. No masses appreciated. Musculoskeletal: Normal range of motion, no pitting or edema. No cyanosis. Hip non tender, stable. No midline tenderness of the thoracic or lumbar spine, no step-off, deformity. NEUROLOGICAL: Cranial nerves grossly intact. Normal speech, normal gait. Normal sensory, motor, and reflex exams. PSYCH: Normal mood, normal affect. SKIN: Small superficial abrasion to the right hand, abrasion to the left parietal scalp. Course - Re-evaluation Re-evalutation: Laboratory 05/19/18 20:14 POC Glucose [address] 05/19/18 19:00 IMPRESSION: No acute cervical spinal fracture is identified. Multilevel degenerative change Vascular calcification Head CT 05/19/18 19:00 IMPRESSION: Soft tissue swelling over the left vertex posteriorly No acute intracranial abnormality is identified. Generalized atrophy with microvascular ischemic changes. Presentation of head trauma in an otherwise well-appearing patient. No focal neurologic deficits on exam, no evidence of basilar skull fracture on exam without evidence of hemotympanum, raccoon eyes, or periauricular hematoma. No papilledema. Patient is not on anticoagulation. GCS is 15. No loss of consciousness. No episodes of vomiting. CT of the head and neck showed no acute intracranial abnormality or fracture. She does have soft tissue swelling over the left scalp. Head injury instructions discussed with the patient. Patient was evaluated and treated as appropriate for the patient's presenting symptoms and complaint, with consideration of any critical or life threatening conditions that may be associated with their obtained history and exam as noted above. All results were discussed with patient and her who is at the bedside. Patient provided the opportunity to ask questions, and express concerns. Patient was educated on treatments based on their presumed diagnosis as noted above. At this time we will discharge the patient with return precautions and follow-up recommendations. Verbal discharge instructions given a the bedside. Medication warnings reviewed. Patient is in agreement with this plan and has verbalized understanding of return precautions. After careful consideration I feel that that patient can be safely discharged from the emergency department, they were advised to followup with a primary care physician in 2-3 days. Dictation on this chart was performed using voice recognition software and may result in unintended grammatical, spelling, syntax or errors. - Vital Signs Vital signs: Temp Pulse Resp BP Pulse Ox 98.4 F 70 20 175/72 H 95 05/19/18 20:13 05/19/18 20:13 05/19/18 20:13 05/19/18 20:13 05/19/18 20:13 - Laboratory Laboratory results interpreted by me: 05/19/18 20:14 POC Glucose 270 H - Diagnostic Test Radiology reviewed: Image reviewed, Reports reviewed Discharge - Discharge Clinical Impression: Fall Qualifiers: Encounter type: initial encounter Qualified Code(s): W19.XXXA - Unspecified fall, initial encounter Closed head injury Qualifiers: Encounter type: initial encounter Qualified Code(s): S09.90XA - Unspecified injury of head, initial encounter Scalp abrasion Qualifiers: Encounter type: initial encounter Qualified Code(s): S00.01XA - Abrasion of scalp, initial encounter Skin tear of right hand without complication Qualifiers: Encounter type: initial encounter Qualified Code(s): S61.411A - Laceration without foreign body of right hand, initial encounter Condition: Good Disposition: HOME, SELF-CARE Instructions: Abrasions ([facility]), Contusion ([facility]), Head Injury Precautions ([facility]) Additional Instructions: You have likely sustained a contusion (bruise) to your head. If you had a CT scan done, it did not show any evidence of serious injury or bleeding. Symptoms to expect from a concussion include nausea, mild to moderate headache, difficulty concentrating or sleeping, and mild lightheadedness. These symptoms should improve over the next few days to weeks. Return to the emergency department or follow-up with your primary care doctor if your symptoms are not improving over this time. Signs of a more serious head injury include vomiting, severe headache, excessive sleepiness or confusion, and weakness or numbness in your face, arms or legs. Return immediately to the Emergency Department if you experience any of these more concerning symptoms. Rest, avoid strenuous physical or mental activity, and avoid activities that could potentially result in another head injury until all your symptoms from this head injury are completely resolved for at least 2-3 weeks. If you participate in sports, get cleared by your doctor or animal trainer supervisor before returning to play. You may take ibuprofen or acetaminophen over the counter according to label instructions for mild headache or scalp soreness. Forms: Elevated Blood Pressure Referrals: NESS LUTZ MD [Primary Care Provider] - Follow up as needed
--- NOTE | 2018-05-19 20:06 | RADIOLOGY REPORT (SQ) ---
EXAM DESCRIPTION: CT HEAD WITHOUT IV CONTRAST COMPLETED DATE/TME: 05/19/2018 19:00 CLINICAL HISTORY: 77 years Female fall COMPARISON: MRI 10/14/2014 TECHNIQUE: Contiguous axial CT images obtained through the brain without IV contrast. This exam was performed according to our department optimization program which includes automated exposure control, adjustment of the mA and/or kv according to patient size and/or use of iterative reconstruction technique. FINDINGS: The ventricles and sulci are prominent consistent with atrophic changes. Microvascular ischemic changes. No midline shift or mass effect. No mass lesions. No acute hemorrhage. Atherosclerotic calcifications. No fluid or significant mucosal thickening in the visualized paranasal sinuses. No depressed calvarial fractures. Soft tissue swelling and small hematoma over the left vertex posteriorly. IMPRESSION: Soft tissue swelling over the left vertex posteriorly No acute intracranial abnormality is identified. Generalized atrophy with microvascular ischemic changes.
--- NOTE | 2018-05-19 20:12 | RADIOLOGY REPORT (SQ) ---
EXAM DESCRIPTION: CT CERVICAL SPINE WITHOUT IV CONTRAST COMPLETED DATE/TME: 05/19/2018 19:00 CLINICAL HISTORY: 77 years Female fall COMPARISON: None. TECHNIQUE: Contiguous axial images obtained through the cervical spine without IV contrast. Coronal and sagittal reformatted images obtained. This exam was performed according to our department optimization program which includes automated exposure control, adjustment of the mA and/or kv according to patient size and/or use of iterative reconstruction technique. FINDINGS: There is straightening of the normal lordosis. There is mild anterolisthesis of C3 on C4 and C4 on C5. Narrowing of the disc interspaces at C5-6 and C6-7 with subchondral sclerosis and osteophytosis. Facet arthropathy at multiple levels. No acute fracture noted. Chronic wedging at C5. Disc osteophyte on the left at C4-5 results in left neural foraminal narrowing. Generalized disc bulging at C5-6 results in severe bilateral neural foraminal stenosis and mild central canal stenosis. C6-7: Bilateral neural foraminal stenosis. IMPRESSION: No acute cervical spinal fracture is identified. Multilevel degenerative change Vascular calcification
[2018-05-19 20:45] VITALS: BP 180/80
== END 2018-05-19 20:44 | disposition home or self-care (01) ==
LOC: ER 17:44
DX: S61.411A Laceration without foreign body of right hand, initial encounter (principal); S00.03XA Contusion of scalp, initial encounter; R51 Headache; W10.9XXA Fall (on) (from) unspecified stairs and steps, initial encounter; E10.9 Type 1 diabetes mellitus without complications; I10 Essential (primary) hypertension
CPT/HCPCS: 99284; 90471; 82962; 70450; 72125; 90715; A9270

== ENCOUNTER 2018-05-21 20:43 | Emergency (ER) | payer MEDICARE, OTHER ==
[2018-05-22] MEDS ORDERED: ONDANSETRON HCL INJ/PF 4 MG/2 ML SDV IV ONE (00:01)
[2018-05-22] MEDS ORDERED: MORPHINE SULFATE 10 MG/ML INJ IV ONE ×2 (00:01→02:40)
[2018-05-22 00:39] LABS: ABSOLUTE BASOPHILS # (AUTO) 0.1 10^3/uL (0.0-0.2); ABSOLUTE EOSINOPHILS # (AUTO) 0.4 10^3/uL (0.0-0.6); ABSOLUTE LYMPHOCYTES (AUTO) 1.2 10^3/uL (0.5-4.7); ABSOLUTE MONOCYTES (AUTO) 0.9 10^3/uL (0.1-1.4); BASOPHILS % (AUTO) 1.3 % (0-2); EOSINOPHILS % (AUTO) 3.7 % (0-6); HEMATOCRIT 39.1 % (36.0-47.0); HEMOGLOBIN 13.3 g/dL (12.0-15.5); LYMPHOCYTES % (AUTO) 10.9 % (13-45); MEAN CORPUSCULAR HEMOGLOBIN 31.5 pg (27.0-33.4); MEAN CORPUSCULAR VOLUME 93 fl (80-97); MONOCYTES % (AUTO) 8.4 % (3-13); PLATELET COUNT 278 10^3/uL (150-450); RED BLOOD COUNT 4.22 10^6/uL (3.72-5.28); RED CELL DISTRIBUTION WIDTH 14.7 % (11.5-14.0); SEGMENTED NEUTROPHILS % (AUTO) 75.7 % (42-78); TOTAL CELLS COUNTED % (AUTO) 100 %; WHITE BLOOD COUNT 10.6 10^3/uL (4.0-10.5)
[2018-05-22 00:53] LABS: ALANINE AMINOTRANSFERASE 44 U/L (9-52); ALBUMIN 3.8 g/dL (3.5-5.0); ALKALINE PHOSPHATASE 166 U/L (38-126); ANION GAP 10 (5-19); ASPARTATE AMINO TRANSFERASE 35 U/L (14-36); BILIRUBIN,DIRECT 0.2 mg/dL (0.0-0.4); BILIRUBIN,TOTAL 0.7 mg/dL (0.2-1.3); BLOOD UREA NITROGEN 16 mg/dL (7-20); CALCIUM 9.3 mg/dL (8.4-10.2); CARBON DIOXIDE 29 mmol/L (22-30); CHLORIDE 98 mmol/L (98-107); GLUCOSE 328 mg/dL (75-110); LIPASE 57.4 U/L (23-300); POTASSIUM 4.6 mmol/L (3.6-5.0); SODIUM 136.9 mmol/L (137-145); TOTAL PROTEIN 7.4 g/dL (6.3-8.2)
[2018-05-22 01:39] LABS: APPEARANCE,URINE SLIGHTLY-CLOUDY; BILIRUBIN,URINE NEGATIVE (NEGATIVE); COLOR,URINE YELLOW; GLUCOSE, URINE >=500 mg/dL (NEGATIVE); KETONES,URINE TRACE mg/dL (NEGATIVE); LEUKOCYTE ESTERASE,URINE TRACE (NEGATIVE); NITRITE,URINE POSITIVE (NEGATIVE); PROTEIN,URINE 30 mg/dL (NEGATIVE); URINE SPECIFIC GRAVITY 1.022; UROBILINOGEN,URINE NEGATIVE mg/dL (<2.0)
--- NOTE | 2018-05-22 01:47 | RADIOLOGY REPORT (SQ) ---
EXAM DESCRIPTION: XR RIBS UNILATERAL WITH CHEST COMPLETED DATE/TME: 05/22/2018 00:02 CLINICAL HISTORY: 77 years Female, injury COMPARISON:12/18/2017 NUMBER OF VIEWS/TECHNIQUE: 4 FINDINGS: No displaced rib fracture. Mild deformity of the left fourth and sixth lateral ribs suggestive of prior injury. No pneumothorax. No acute cardiopulmonary findings. Adequate appearing right jugular central line. Atherosclerotic vascular disease. Upper abdominal clips. IMPRESSION: No acute findings.
[2018-05-22] MEDS ORDERED: NITROFURANTOIN MONOHYD/M-CRYST 100 MG CAPSULE PO ONE (02:40)
--- NOTE | 2018-05-22 03:02 | ER Document Report ---
ED General - General Chief Complaint: Pain L side Stated Complaint: LEFT SIDE PAIN Time Seen by Provider: 05/21/18 23:52 Primary Care Provider: JOSH BASSETT MD [Primary Care Provider] - Follow up as needed TRAVEL OUTSIDE OF THE [place] IN LAST 30 DAYS: No - HPI Notes: She presents emergency department for evaluation of left-sided pain. She states she was seen in the ER on Monday after a fall. She fell backwards down 4 stairs. She had an evaluation, including scans of her head and neck. These were found to be negative. She said that since then she is developed pain in her left flank region. She denies any fevers. No vomiting. No urinary symptoms. She states her pain is worse with a deep breath. It is sharp and stabbing. - Related Data Allergies/Adverse Reactions: No Known Allergies Allergy (Verified 10/14/14 12:18) Past Medical History - General Information source: Patient, Relative - Social History Smoking Status: Never Smoker Frequency of alcohol use: None Drug Abuse: None Family History: CAD, DM Patient has suicidal ideation: No Patient has homicidal ideation: No - Past Medical History Cardiac Medical History: Reports: Hx Congestive Heart Failure - diastolic dysfunction, Hx Hypercholesterolemia, Hx Hypertension - COZAAR-at bedtime Denies: Hx Atrial Fibrillation, Hx Coronary Artery Disease, Hx DVT, Hx Heart Attack, Hx Pulmonary Embolism Pulmonary Medical History: Denies: Hx Asthma, Hx Bronchitis, Hx COPD, Hx Pneumonia, Hx Sleep Apnea Neurological Medical History: Denies: Hx Cerebrovascular Accident, Hx Seizures Endocrine Medical History: Reports: Hx Diabetes Mellitus Type 1, Hx Diabetes Mellitus Type 2, Hx Hypothyroidism. 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 Denies: Hx Mastectomy, Hx Open Heart Surgery, Hx Pacemaker - Immunizations Hx Diphtheria, Pertussis, Tetanus Vaccination: No Review of Systems - Review of Systems Constitutional: No symptoms reported EENT: No symptoms reported Cardiovascular: No symptoms reported Respiratory: No symptoms reported Gastrointestinal: No symptoms reported Genitourinary: No symptoms reported Female Genitourinary: No symptoms reported Musculoskeletal: See HPI Skin: No symptoms reported Neurological/Psychological: No symptoms reported Physical Exam - Vital signs Vitals: Temp Pulse Resp BP Pulse Ox 98.0 F 72 16 181/58 H 99 05/21/18 21:00 05/21/18 21:00 05/21/18 21:00 05/21/18 21:00 05/21/18 21:00 Interpretation: Hypertensive - Notes Notes: Vital signs reviewed, please refer to chart. Patient is normocephalic, atraumatic. Pupils equal round, reactive to light. Neck is supple without meningismus. Heart is regular rate and rhythm. Lungs are clear to auscultation bilaterally. Abdomen is soft, nontender, normoactive bowel sounds throughout. Examination of the left flank feels no obvious signs of trauma. She does have some tenderness to palpation over the costovertebral angles from T9 through the 12th rib. Extremities without cyanosis, clubbing, edema. Peripheral pulses are equal. Skin is warm and dry. Patient is awake, alert, neurological exam is nonfocal. Course - Re-evaluation Re-evalutation: 05/22/18 03:06 Patient presents emergency department for evaluation. She was placed on a monitor. She was found to be hypertensive. This improved after some pain medication. Her blood pressure has not been well controlled, we discussed this. She needs to follow-up with her primary care physician regarding this. Laboratory investigations and imaging ordered. Patient feeling improved after medication. Imaging failed to reveal any acute fractures or lung pathology. Laboratory desiccation revealed a nitrate positive urine. She was medicated here with Macrobid. We will send her home with a prescription for same. Certainly she could have injured herself in the fall on Monday, but I see no overt signs of trauma or injury. She does have some flank pain at this UTI, but no fevers, no vomiting. She is Gabriel on pain medication at home. We will send her home with antibiotics and close follow-up. She is to return the emergency department with worsening or new concerning symptoms of any sort. - Vital Signs Vital signs: Temp Pulse Resp BP Pulse Ox 98.0 F 72 18 165/59 H 86 L 05/21/18 21:00 05/21/18 21:00 05/22/18 02:01 05/22/18 02:01 05/22/18 02:01 - Laboratory Result Diagrams: 05/22/18 00:20 05/22/18 00:20 Laboratory results interpreted by me: 05/22/18 05/22/18 05/22/18 00:20 00:20 01:10 WBC 10.6 H RDW 14.7 H Lymphocytes % 10.9 L Sodium 136.9 L Glucose 328 H Alkaline Phosphatase 166 H Urine Protein 30 H Urine Glucose (UA) >=500 H Urine Ketones TRACE H Urine Blood SMALL H Urine Nitrite POSITIVE H Ur Leukocyte Esterase TRACE H 05/22/18 03:07 Patient has not had her Lantus this evening Discharge - Discharge Clinical Impression: Flank pain, acute, Urinary tract infection Condition: Stable Disposition: HOME, SELF-CARE Instructions: Urinary Tract Infection ([facility]), Nitrofurantoin ([facility]) Additional Instructions: Take antibiotic as prescribed. Follow-up with your primary care physician this week. Return to the emergency department with worsening or new concerning s ymptoms of any sort. Referrals: JOSH BASSETT MD [Primary Care Provider] - Follow up as needed
[2018-05-22 03:14] VITALS: BP 170/67
== END 2018-05-22 03:52 | disposition home or self-care (01) ==
LOC: ER 20:43
DX: N39.0 Urinary tract infection, site not specified (principal); R10.9 Unspecified abdominal pain; I50.9 Heart failure, unspecified; E78.00 Pure hypercholesterolemia, unspecified; I11.0 Hypertensive heart disease with heart failure; E11.9 Type 2 diabetes mellitus without complications; Z90.710 Acquired absence of both cervix and uterus
CPT/HCPCS: 96376; 99284; 96374; 96375; 36415; 83690; 85025; 80053; 81001; 71101; J2270; J2405; A9270; J8499

== ENCOUNTER 2018-07-03 15:13 | Emergency (ER) | payer MEDICARE, OTHER ==
[2018-07-03] MEDS ORDERED: DEXTROSE 50%-WATER 25 GM/50 ML DISP.SYRIN IV ONE ×2 (16:08)
[2018-07-03 16:19] LABS: ABSOLUTE EOSINOPHILS # (AUTO) 0.1 10^3/uL (0.0-0.6); ABSOLUTE LYMPHOCYTES (AUTO) 0.5 10^3/uL (0.5-4.7); ABSOLUTE MONOCYTES (AUTO) 0.6 10^3/uL (0.1-1.4); BASOPHILS % (AUTO) 0.3 % (0-2); EOSINOPHILS % (AUTO) 0.6 % (0-6); HEMATOCRIT 40.6 % (36.0-47.0); HEMOGLOBIN 13.4 g/dL (12.0-15.5); LYMPHOCYTES % (AUTO) 5.1 % (13-45); MEAN CORPUSCULAR HEMOGLOBIN 31.1 pg (27.0-33.4); MEAN CORPUSCULAR HGB CONC 33.1 g/dL (32.0-36.0); MEAN CORPUSCULAR VOLUME 94 fl (80-97); MONOCYTES % (AUTO) 6.1 % (3-13); PLATELET COUNT 183 10^3/uL (150-450); RED BLOOD COUNT 4.31 10^6/uL (3.72-5.28); RED CELL DISTRIBUTION WIDTH 14.8 % (11.5-14.0); SEGMENTED NEUTROPHILS % (AUTO) 87.9 % (42-78); TOTAL CELLS COUNTED % (AUTO) 100 %; WHITE BLOOD COUNT 10.2 10^3/uL (4.0-10.5)
[2018-07-03 16:37] LABS: APPEARANCE,URINE SLIGHTLY-CLOUDY; BILIRUBIN,URINE NEGATIVE (NEGATIVE); COLOR,URINE YELLOW; GLUCOSE, URINE >=500 mg/dL (NEGATIVE); KETONES,URINE NEGATIVE (NEGATIVE); LEUKOCYTE ESTERASE,URINE TRACE (NEGATIVE); NITRITE,URINE POSITIVE (NEGATIVE); PROTEIN,URINE 100 mg/dL (NEGATIVE); UROBILINOGEN,URINE NEGATIVE mg/dL (<2.0)
[2018-07-03 16:42] LABS: ALANINE AMINOTRANSFERASE 34 U/L (9-52); ALBUMIN 3.5 g/dL (3.5-5.0); ALKALINE PHOSPHATASE 147 U/L (38-126); ANION GAP 6 (5-19); ASPARTATE AMINO TRANSFERASE 50 U/L (14-36); BILIRUBIN,DIRECT 0.2 mg/dL (0.0-0.4); BILIRUBIN,TOTAL 0.6 mg/dL (0.2-1.3); BLOOD UREA NITROGEN 16 mg/dL (7-20); CALCIUM 8.9 mg/dL (8.4-10.2); CARBON DIOXIDE 30 mmol/L (22-30); CHLORIDE 98 mmol/L (98-107); CREATINE KINASE 33 U/L (30-135); POTASSIUM 3.8 mmol/L (3.6-5.0); TOTAL PROTEIN 7.2 g/dL (6.3-8.2)
[2018-07-03 16:47] LABS: GLUCOSE 397 mg/dL (75-110)
--- NOTE | 2018-07-03 16:49 | RADIOLOGY REPORT (SQ) ---
EXAM DESCRIPTION: CHEST SINGLE VIEW COMPLETED DATE/TIME: 07/03/2018 4:38 pm REASON FOR STUDY: Lethargic, hypoglycemic COMPARISON: 09/28/2016 EXAM PARAMETERS: NUMBER OF VIEWS: One view. TECHNIQUE: Single frontal radiographic view of the chest acquired. RADIATION DOSE: NA LIMITATIONS: None. FINDINGS: LUNGS AND PLEURA: Low lung volumes limits examination. No acute pulmonary consolidation. No pneumothorax or pleural effusion. MEDIASTINUM AND HILAR STRUCTURES: No masses. Contour normal. HEART AND VASCULAR STRUCTURES: Cardiomegaly. Normal vasculature. BONES: No acute findings. HARDWARE: Right [id number] catheter, unchanged finding. OTHER: No other significant finding. IMPRESSION: 1. Low lung volumes limits the examination. No acute pulmonary consolidation. 2. Cardiomegaly. No evidence for failure. TECHNICAL DOCUMENTATION: JOB ID: [id number] [employer]- All Rights Reserved Reading location - IP/workstation name: [email or web address]
--- NOTE | 2018-07-03 17:31 | EKG REPORT ---
SEVERITY:- ABNORMAL ECG - SINUS RHYTHM NONSPECIFIC T ABNORMALITIES, ANT-LAT LEADS : Confirmed by: Rogerio Johnson MD 03-Jul-2018 17:30:18
[2018-07-03] MEDS ORDERED: LEVOFLOXACIN 500 MG TABLET PO ONE (18:09)
--- NOTE | 2018-07-03 18:17 | ER Document Report ---
Entered by LEILA ALVAREZ SCRIBE 07/03/18 1620 Acting as scribe for:ABHI SEBASTIAN MD ED Blood Sugar Problem - General Chief Complaint: Low Blood Sugar Stated Complaint: POSSIBLE LOW BLOOD SUGAR Time Seen by Provider: 07/03/18 15:53 Primary Care Provider: JOSH BASSETT MD [Primary Care Provider] - Follow up as needed NESS LUTZ MD [ACTIVE STAFF] - Follow up tomorrow Mode of Arrival: Ambulatory Information source: Patient Notes: Patient is a 77 year old female with HTN, type 2 diabetes, hypothyroidism, HLD, t cell lymphoma presents to the emergency department via EMS due to hypoglycemia. According to family at bedside, patient was fasting due to a pet scan scheduled at 1300 today and proceeded to take insulin due to habit. states he attempted to wake up the patient but she was very drowsy and not responding and proceeded to call EMS. Patient states she feels "fine" but sleepy. According to EMS patient was sleepy but arousable to verbal stimuli upon arrival to the scene. They administered a sandwich, orange juice and a piece of pie as well as 1 mg of glucagon IM. The patient's blood glucose level selvin to 150 and and they proceeded to administer D10 which brought the patient's blood glucose to 326. TRAVEL OUTSIDE OF THE [place] IN LAST 30 DAYS: No - Related Data Allergies/Adverse Reactions: No Known Allergies Allergy (Verified 07/03/18 15:25) Past Medical History - General Information source: Patient - Social History Smoking Status: Never Smoker Cigarette use (# per day): No Chew tobacco use (# tins/day): No Smoking Education Provided: No Family History: CAD, DM Patient has suicidal ideation: No Patient has homicidal ideation: No - Past Medical History Cardiac Medical History: Reports: Hx Congestive Heart Failure - diastolic dysf unction, Hx Hypercholesterolemia, Hx Hypertension - COZAAR-at bedtime Pulmonary Medical History: Reports: Hx Pneumonia Endocrine Medical History: Reports: Hx Diabetes Mellitus Type 2, Hx Hypothyroidism Malignancy Medical History: Reports: Hx Lymphoma - T-cell lymphoma; 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 Psychiatric Medical History: Reports: Hx Depression Past Surgical History: Reports: Hx Hysterectomy - Immunizations Hx Diphtheria, Pertussis, Tetanus Vaccination: No Review of Systems - Review of Systems Constitutional: See HPI, Weakness EENT: No symptoms reported Cardiovascular: No symptoms reported Respiratory: No symptoms reported Gastrointestinal: No symptoms reported Genitourinary: No symptoms reported Female Genitourinary: No symptoms reported Musculoskeletal: No symptoms reported Skin: No symptoms reported Hematologic/Lymphatic: No symptoms reported Neurological/Psychological: No symptoms reported -: Yes All other systems reviewed and negative Physical Exam - Vital signs Vitals: Temp Pulse BP Pulse Ox 94.3 F L 57 L 148/48 H 95 07/03/18 15:32 07/03/18 15:32 07/03/18 15:32 07/03/18 15:32 - Notes Notes: GENERAL: Frequently falls asleep, arousable. No acute distress. HEAD: Normocephalic, atraumatic. EYES: Pupils equal, round, and reactive to light. Extraocular movements intact. ENT: Oral mucosa moist, tongue midline. NECK: Full range of motion. Supple. Trachea midline. LUNGS: Clear to auscultation bilaterally, no wheezes, rales, or rhonchi. No respiratory distress. HEART: Regular rate and rhythm. No murmurs, gallops, or rubs. ABDOMEN: Soft, obese, non-tender. Non-distended. Bowel sounds present in all 4 quadrants. No guarding, rigidity, or rebound. EXTREMITIES: Moves all 4 extremities spontaneously. No edema. NEUROLOGICAL: Frequently falls asleep, arousable. Oriented x3. Normal speech. PSYCH: Normal affect, normal mood. SKIN: Warm, dry, normal turgor. No rashes or lesions noted. Course - Vital Signs Vital signs: Temp Pulse Resp BP Pulse Ox 94.3 F L 57 L 17 155/58 H 92 07/03/18 15:32 07/03/18 15:32 07/03/18 17:01 07/03/18 17:01 07/03/18 17:01 - Laboratory Result Diagrams: 07/03/18 15:52 07/03/18 15:52 Laboratory results interpreted by me: 07/03/18 07/03/18 07/03/18 15:33 15:52 15:52 RDW 14.8 H Seg Neutrophils % 87.9 H Lymphocytes % 5.1 L Absolute Neutrophils 9.0 H Sodium 134.0 L Glucose 397 H POC Glucose 255 H AST 50 H Alkaline Phosphatase 147 H Urine Protein Urine Glucose (UA) Urine Blood Urine Nitrite Ur Leukocyte Esterase 07/03/18 16:15 RDW Seg Neutrophils % Lymphocytes % Absolute Neutrophils Sodium Glucose POC Glucose AST Alkaline Phosphatase Urine Protein 100 H Urine Glucose (UA) >=500 H Urine Blood LARGE H Urine Nitrite POSITIVE H Ur Leukocyte Esterase TRACE H Discharge - Discharge Clinical Impression: Hypoglycemia associated with diabetes Urinary tract infection Qualifiers: Urinary tract infection type: site unspecified Hematuria presence: with hematuria Qualified Code(s): N39.0 - Urinary tract infection, site not specified; R31.9 - Hematuria, unspecified Condition: Stable Disposition: HOME, SELF-CARE Additional Instructions: Urinary Tract Infection Your evaluation indicates that you have a urinary tract infection. This is due to germs growing in the bladder. This is a common problem. This infection usually responds quickly to antibiotics. Your antibiotic should be taken exactly as prescribed. Drink plenty of fluids -- three to four quarts a day. Occasionally, a bladder anesthetic will be prescribed to help stop the feeling of urgency until the antibiotic has a chance to clear the infection. This may cause your urine to be dark orange. Certain urine infections require a culture. If the doctor obtained a culture, the results will be back in two days. You should call to see if a change in treatment is needed. A repeat urinalysis after you finish treatment is often recommended. The physician will let you know if further testing is required. Call the doctor if you develop fever, chills, flank pain, inability to urinate, or blood in the urine. Hypoglycemia: You have suffered an episode of hypoglycemia (low blood sugar). Typical symptoms of hypoglycemia are shaking, sweating, headache, and confusion. When s evere, unconsciousness or seizure may occur. Hypoglycemia occurs when a person taking insulin or diabetes pills has a change in the amount of blood sugar available -- due to exercise, decreased food intake, or alcohol. Should you feel symptoms of hypoglycemia again, immediately take some form of sugar such as sweetened juice. As the reaction subsides, eat a complex carbohydrate such as bread. If possible, check your blood sugar. Start the antibiotic as prescribed tomorrow. Drink plenty of fluids. Check your sugar regularly and adjust your insulin dosing as needed. Follow-up with your doctor tomorrow to reschedule your PET scan. RETURN TO THE EMERGENCY ROOM IF ANY NEW OR WORSENING SYMPTOMS. Prescriptions: Levofloxacin [Levaquin 250 mg Tablet] 250 mg PO DAILY #5 tablet Referrals: JOSH BASSETT MD [Primary Care Provider] - Follow up as needed NESS LUTZ MD [ACTIVE STAFF] - Follow up tomorrow Scribe Attestation: 07/03/18 16:27 I personally performed the services described in the documentation, reviewed and edited the documentation which was dictated to the scribe in my presence, and it accurately records my words and actions. I personally performed the services described in the documentation, reviewed and edited the documentation which was dictated to the scribe in my presence, and it accurately records my words and actions.
[2018-07-03 18:19] VITALS: BP 164/77
== END 2018-07-03 18:55 | disposition home or self-care (01) ==
LOC: ER 15:13
DX: E11.649 Type 2 diabetes mellitus with hypoglycemia without coma (principal); N39.0 Urinary tract infection, site not specified; Z79.4 Long term (current) use of insulin; I50.9 Heart failure, unspecified; I11.0 Hypertensive heart disease with heart failure
CPT/HCPCS: 93005; 99284; 51701; 36415; 87040; 87086; 82962; 82550; 85025; 87088; 80053; 81001; 84484; 87186; 71045; 93010; A9270

== ENCOUNTER → 2018-07-17 | Outpatient (CLI) | payer MEDICARE, OTHER ==
--- NOTE | 2018-07-17 11:11 | RADIOLOGY REPORT (SQ) ---
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 Images reviewed with lung, soft tissue and bone windows. Reconstructed coronal a nd sagittal MPR images reviewed. All images stored on PACS. CT scan of the abdomen and pelvis performed with intravenous and without oral contrastusing helical s shaun technique with dynamic intravenous contrast injection. Images reviewed with lung, soft tissu e and bone windows. Reconstructed coronal and sagittal MPR images reviewed. Delayed images for eval uation of the urinary system also acquired and evaluated. All images stored on PACS. All CT scanners at this facility use dose modulation, iterative reconstruction, and/or weight based d osing when appropriate to reduce radiation dose to as low as reasonably achievable (ALARA). [facility]: Dose Right [facility]: CareDose [facility]: Dose Right [facility]: Teradose 4D [facility]: [employer] RADIATION DOSE: CT Rad equipment meets quality standard of care and radiation dose reduction techniq ues were employed. CTDIvol: 4.5 - 6.8 mGy. DLP: 852 mGy-cm. . LIMITATIONS: None. FINDINGS: CHEST: LUNGS AND PLEURA: There is chronic appearing bronchiectasis in the medial segment right middle lobe a nd lateral aspect lingula. Lungs are hyperlucent from obstructive disease. No pleural effusion. No pneumothorax. HILAR AND MEDIASTINAL STRUCTURES: No identified masses or abnormal nodes. HEART AND VASCULAR STRUCTURES: No aneurysm or dissection. No central pulmonary emboli. No pericardi al effusion. Mild cardiomegaly HARDWARE: Right permanent central line tip superior vena cava. THYROID AND OTHER SOFT TISSUES: No masses. No adenopathy. BONES: Healing left posterior 6th rib fracture OTHER: No other significant finding. ABDOMEN AND PELVIS: LIVER: Normal size. No masses. No dilated ducts. SPLEEN: Small, nodular contour, 7 cm in length, stable PANCREAS: No masses. No significant calcifications. No adjacent inflammation or peripancreatic fluid collections. Pancreatic duct not dilated. GALLBLADDER: Surgically absent ADRENAL GLANDS: No significant masses or asymmetry. RIGHT KIDNEY AND URETER: In the right renal pelvis, a 2.5 x 1.5 cm soft tissue mass is present worris ome for urothelial tumor. This best shown on axial image and delayed postcontrast axial image . Remainder of the right kidney demonstrates no cysts. No stones. No hydronephrosis. LEFT KIDNEY AND URETER: No solid masses. No significant calcification. No hydronephrosis or hydrouret er. AORTA AND VESSELS: Calcified abdominal aorta without aneurysm. Greater than 75% right renal artery s tenosis is suspected. RETROPERITONEUM: No retroperitoneal adenopathy, hemorrhage or masses. BOWEL AND PERITONEAL CAVITY: No CT evidence of bowel obstruction or free intraperitoneal air or free fluid. APPENDIX: Surgically absent ABDOMINAL WALL: No masses. No hernias. PELVIS: Post hysterectomy. Urinary bladder unremarkable. No adenopathy. Old surgical clips right i nguinal region from lymph node resection. BONES: Old left hip replacement, degenerative disc changes lower lumbar spine OTHER: No other significant finding. 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
== END ==
LOC: RAD 08:30
PROVIDERS: ATTEND Internal Medicine
DX: C84.70 Anaplastic large cell lymphoma, ALK-negative, unspecified site (principal)
CPT/HCPCS: 71260; 74177

== ENCOUNTER 2018-10-18 09:58 | Inpatient (IN) | payer MEDICARE, OTHER ==
--- NOTE | 2018-10-18 10:20 | ER Document Report ---
ED General - General Chief Complaint: Fall-Right Hip Pain Stated Complaint: HIP PAIN Time Seen by Provider: 10/18/18 10:07 Notes: Patient is a 77-year-old female that presents to the emergency department for chief complaint of right hip pain after fall. Patient reports that she fell in her bathroom after hitting her hip on the counter, and fell to the ground on her right side, she was not able to get back up, her called EMS this oc curred around 10 AM this morning. She denies hitting her head or having any neck pain. Denies any numbness, tingling or weakness in her arms or legs. She currently rates her pain as a 6 out of 10 describes as a constant throbbing and aching sensation in her right hip and groin. Pain is worse with any movement of her hip. Past Medical History: Dementia, hypertension, hyperlipidemia Past Surgical History: Left hip hemiarthroplasty Social History: Lives at home with family, denies alcohol, tobacco or drug use. Family History: Reviewed and noncontributory for presenting illness Allergies: Reviewed, see documented allergy list. REVIEW OF SYSTEMS: Other than noted above, the 12 point review of systems was reviewed with the patient and were negative, all pertinent findings are included in the HPI. PHYSICAL EXAMINATION: Vital signs reviewed, nursing noted reviewed. GENERAL: Elderly female, appears uncomfortable on exam. HEAD: Atraumatic, normocephalic. EYES: Eyes appear normal, extraocular movements intact, sclera anicteric, conjunctiva are normal. ENT: nares patent, oropharynx clear without exudates. Moist mucous membranes. NECK: Normal range of motion, supple without lymphadenopathy LUNGS: Breath sounds clear to auscultation bilaterally and equal. No wheezes rales or rhonchi. HEART: Regular rate and rhythm without murmurs ABDOMEN: Soft, nontender, normoactive bowel sounds. No rebound, guarding, or rigidity. No masses appreciated. EXTREMITIES: The right hip is shortened and externally rotated compared to the left, patient is unable to flex the hip, due to significant pain. She is neurovascular intact distally however, pulses intact, sensation and motor int act. The rest the patient's extremity exam is grossly unremarkable. NEUROLOGICAL: No focal neurological deficits. Moves all extremities spontaneously Motor and sensory grossly intact on exam. PSYCH: Normal mood, normal affect. SKIN: Warm, Dry, normal turgor, no rashes or lesions noted on exposed skin TRAVEL OUTSIDE OF THE [place] IN LAST 30 DAYS: No - Related Data Allergies/Adverse Reactions: No Known Allergies Allergy (Verified 07/03/18 15:25) Past Medical History - Social History Smoking Status: Never Smoker Family History: Reviewed & Not Pertinent, CAD, DM - Past Medical History Cardiac Medical History: Reports: Hx Congestive Heart Failure - diastolic dysfunction, Hx Hypercholesterolemia, Hx Hypertension - COZAAR-at bedtime Denies: Hx Atrial Fibrillation, Hx Coronary Artery Disease, Hx DVT, Hx Heart Attack, Hx Pulmonary Embolism Pulmonary Medical History: Reports: Hx Pneumonia Denies: Hx Asthma, Hx Bronchitis, Hx COPD, Hx Sleep Apnea Neurological Medical History: Denies: Hx Cerebrovascular Accident, Hx Seizures Endocrine Medical History: Reports: Hx Diabetes Mellitus Type 1, Hx Diabetes Mellitus Type 2, Hx Hypothyroidism. 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 Denies: Hx Mastectomy, Hx Open Heart Surgery, Hx Pacemaker - Immunizations Hx Diphtheria, Pertussis, Tetanus Vaccination: No Physical Exam - Vital signs Vitals: Temp Pulse Resp BP Pulse Ox 98.4 F 90 18 180/54 H 91 L 10/18/18 10:04 10/18/18 10:04 10/18/18 10:04 10/18/18 10:04 10/18/18 10:04 Course - Re-evaluation Re-evalutation: Patient seen and examined vital signs reviewed. Laboratory data and imaging were ordered as appropriate for the patient's presenting symptoms and complaint, with consideration of any critical or life threatening conditions that may be associated with their obtained history and exam as noted above. Patient was treated with IV fentanyl for pain, Zofran Results were reviewed when available and demonstrated right basicervical femoral neck fracture The patient was re-evaluated and was stable, her UA did demonstrate signs of possible urinary tract infection, although she recently had a urinary procedure, despite this she was given Ancef, I discussed the case with the orthopedic surgeon, who will consult on the patient, and likely perform surgery tomorrow, due to patient's age, will admit to the hospitalist service. Evaluation was most consistent with right basicervical femoral neck fracture. Results were discussed with the patient at this point after careful consideration I feel that that patient should be admitted to the hospital. This was discussed with the patient that it is in the best interest for their care to be admitted for further evaluation and management. Patient agreed with this plan of care. A call was placed to the admitting provider Alex Dawson PA-C who graciously accepted the patient onto their service. *Note is created using voice recognition software and may contain spelling, syntax or grammatical errors. Laboratory 10/18/18 10/18/18 10/18/18 11:05 12:58 12:58 WBC 7.6 RBC 3.72 Hgb 11.3 L Hct 34.0 L MCV 91 MCH 30.3 MCHC 33.2 RDW 15.0 H Plt Count 191 Seg Neutrophils % 84.6 H Lymphocytes % 6.4 L Monocytes % 8.3 Eosinophils % 0.0 Basophils % 0.7 Absolute Neutrophils 6.4 Absolute Lymphocytes 0.5 Absolute Monocytes 0.6 Absolute Eosinophils 0.0 Absolute Basophils 0.1 PT INR Sodium 135.8 L Potassium 4.4 Chloride 99 Carbon Dioxide 30 Anion Gap 7 BUN 21 H Creatinine 0.75 Est GFR ( Amer) > 60 Est GFR (Non-Af Amer) > 60 Glucose 278 H Calcium 8.4 Urine Color YELLOW Urine Appearance SLIGHTLY-CLOUDY Urine pH 6.0 Ur Specific Glen 1.013 Urine Protein >=500 H Urine Glucose (UA) >=500 H Urine Ketones 20 H Urine Blood LARGE H Urine Nitrite NEGATIVE Urine Bilirubin NEGATIVE Urine Urobilinogen NEGATIVE Ur Leukocyte Esterase LARGE H Urine RBC TOO NUMEROUS TO CNT Urine WBC 30-50 U Non-Squamous Epi Cells FEW Urine Bacteria 3+ Urine Mucus TRACE Urine Ascorbic Acid NEGATIVE Blood Type Antibody Screen 10/18/18 10/18/18 12:58 12:58 WBC RBC Hgb Hct MCV MCH MCHC RDW Plt Count Seg Neutrophils % Lymphocytes % Monocytes % Eosinophils % Basophils % Absolute Neutrophils Absolute Lymphocytes Absolute Monocytes Absolute Eosinophils Absolute Basophils PT 14.3 INR 1.10 Sodium Potassium Chloride Carbon Dioxide Anion Gap BUN Creatinine Est GFR ( Amer) Est GFR (Non-Af Amer) Glucose Calcium Urine Color Urine Appearance Urine pH Ur Specific Glen Urine Protein Urine Glucose (UA) Urine Ketones Urine Blood Urine Nitrite Urine Bilirubin Urine Urobilinogen Ur Leukocyte Esterase Urine RBC Urine WBC U Non-Squamous Epi Cells Urine Bacteria Urine Mucus Urine Ascorbic Acid Blood Type A POSITIVE Antibody Screen NEGATIVE Hip/Pelvis X-Ray 10/18/18 00:00 IMPRESSION: Acute right comminuted intertrochanteric proximal femoral fracture with mild varus angulation Chest X-Ray 10/18/18 10:35 IMPRESSION: Cardiomegaly without acute abnormality of the lungs in AP projection. - Vital Signs Vital signs: Temp Pulse Resp BP Pulse Ox 98.4 F 90 18 155/58 H 99 10/18/18 10:04 10/18/18 10:04 10/18/18 10:04 10/18/18 16:01 10/18/18 16:01 - Laboratory Result Diagrams: 10/18/18 12:58 10/18/18 12:58 Laboratory results interpreted by me: 10/18/18 10/18/18 10/18/18 11:05 12:58 12:58 Hgb 11.3 L Hct 34.0 L RDW 15.0 H Seg Neutrophils % 84.6 H Lymphocytes % 6.4 L Sodium 135.8 L BUN 21 H Glucose 278 H Urine Protein >=500 H Urine Glucose (UA) >=500 H Urine Ketones 20 H Urine Blood LARGE H Ur Leukocyte Esterase LARGE H - EKG Interpretation by Me Additional EKG results interpreted by me: EKG demonstrates sinus rhythm with a first-degree AV block with a ventricular rate of 90 bpm, normal axis, QTC 441 ms, no ST elevation, compared to prior EKG from 07/03/2018, without significant change. Discharge - Discharge Clinical Impression: Fracture of femoral neck, right, closed Qualifiers: Encounter type: initial encounter Qualified Code(s): S72.001A - Fracture of unspecified part of neck of right femur, initial encounter for closed fracture Fall Qualifiers: Encounter type: initial encounter Qualified Code(s): W19.XXXA - Unspecified fall, initial encounter Condition: Stable Disposition: ADMITTED INPATIENT Admitting Provider: Leisa (Hospitalist) - ALEX SIERRA-[facility] Unit Admitted: Surgical Floor
[2018-10-18] MEDS ORDERED: ONDANSETRON HCL INJ/PF 4 MG/2 ML SDV IV ONE (10:22)
[2018-10-18] MEDS ORDERED: MORPHINE SULFATE 10 MG/ML INJ IV ONE (10:22)
--- NOTE | 2018-10-18 10:44 | RADIOLOGY REPORT (SQ) ---
EXAM DESCRIPTION: HIP RIGHT AP/LATERAL COMPLETED DATE/TIME: 10/18/2018 10:23 am REASON FOR STUDY: Fall; leg shortening; Pain COMPARISON: CT abdomen pelvis 07/17/2018 NUMBER OF VIEWS: Two views. TECHNIQUE: AP pelvis and additional frog-leg view of the right hip. LIMITATIONS: None. FINDINGS: Bones are osteopenic. Acute right comminuted intertrochanteric proximal femoral fracture with mild varus angulation. No acute fracture elsewhere in the right hemipelvis. Old left hip replacement. Left hemipelvis and sacrum intact. Right double-J ureteral stent in place, distal loop is in the bladder. Old right paramidline anterior abdominal wall sutures along the rectus sheath unchanged from CT 019. IMPRESSION: Acute right comminuted intertrochanteric proximal femoral fracture with mild varus angul ation TECHNICAL DOCUMENTATION: JOB ID: [id number] [email or web address]- All Rights Reserved Reading location - IP/workstation name: [email or web address]
[2018-10-18 11:22] LABS: APPEARANCE,URINE SLIGHTLY-CLOUDY; BILIRUBIN,URINE NEGATIVE (NEGATIVE); COLOR,URINE YELLOW; GLUCOSE, URINE >=500 mg/dL (NEGATIVE); KETONES,URINE 20 mg/dL (NEGATIVE); LEUKOCYTE ESTERASE,URINE LARGE (NEGATIVE); NITRITE,URINE NEGATIVE (NEGATIVE); PROTEIN,URINE >=500 mg/dL (NEGATIVE); URINE SPECIFIC GRAVITY 1.013; UROBILINOGEN,URINE NEGATIVE mg/dL (<2.0)
[2018-10-18 11:24] LABS: ADD MANUAL MICROSCOPIC YES
[2018-10-18 11:31] LABS: RBC,URINE TOO NUMEROUS TO CNT /HPF; WBC,URINE 30-50 /HPF
[2018-10-18 11:32] LABS: BACTERIA,URINE 3+ /HPF
--- NOTE | 2018-10-18 12:09 | RADIOLOGY REPORT (SQ) ---
EXAM DESCRIPTION: CHEST SINGLE VIEW COMPLETED DATE/TIME: 10/18/2018 11:51 am REASON FOR STUDY: fall, hip fx pre op screening COMPARISON: 07/03/2018 EXAM PARAMETERS: NUMBER OF VIEWS: One view. TECHNIQUE: Single frontal radiographic view of the chest acquired. RADIATION DOSE: NA LIMITATIONS: None. FINDINGS: LUNGS AND PLEURA: No opacities, masses or pneumothorax. No pleural effusion. MEDIASTINUM AND HILAR STRUCTURES: No masses. Contour normal. HEART AND VASCULAR STRUCTURES: Cardiomegaly. BONES: No acute findings. HARDWARE: None in the chest. OTHER: Right chest port catheter. IMPRESSION: Cardiomegaly without acute abnormality of the lungs in AP projection. TECHNICAL DOCUMENTATION: JOB ID: [id number] [employer]- All Rights Reserved Reading location - IP/workstation name: [email or web address]
[2018-10-18] MEDS ORDERED: CEFAZOLIN 1 GM/D5W RTU 1 GM/50 ML RTUPB IV ONE (12:19)
--- NOTE | 2018-10-18 12:53 | EKG REPORT ---
SEVERITY:- ABNORMAL ECG - SINUS RHYTHM FIRST DEGREE AV BLOCK PROBABLE LEFT ATRIAL ABNORMALITY DIFFUSE NONSPECIFIC ST-T CHANGES : Confirmed by: Rogerio Johnson MD 18-Oct-2018 12:53:30
[2018-10-18 13:15] LABS: ABSOLUTE BASOPHILS # (AUTO) 0.1 10^3/uL (0.0-0.2); ABSOLUTE LYMPHOCYTES (AUTO) 0.5 10^3/uL (0.5-4.7); ABSOLUTE MONOCYTES (AUTO) 0.6 10^3/uL (0.1-1.4); ABSOLUTE NEUT (AUTO) 6.4 10^3/uL (1.7-8.2); BASOPHILS % (AUTO) 0.7 % (0-2); HEMOGLOBIN 11.3 g/dL (12.0-15.5); LYMPHOCYTES % (AUTO) 6.4 % (13-45); MEAN CORPUSCULAR HEMOGLOBIN 30.3 pg (27.0-33.4); MEAN CORPUSCULAR HGB CONC 33.2 g/dL (32.0-36.0); MEAN CORPUSCULAR VOLUME 91 fl (80-97); MONOCYTES % (AUTO) 8.3 % (3-13); PLATELET COUNT 191 10^3/uL (150-450); RED BLOOD COUNT 3.72 10^6/uL (3.72-5.28); SEGMENTED NEUTROPHILS % (AUTO) 84.6 % (42-78); TOTAL CELLS COUNTED % (AUTO) 100 %; WHITE BLOOD COUNT 7.6 10^3/uL (4.0-10.5)
[2018-10-18 13:35] LABS: ANION GAP 7 (5-19); BLOOD UREA NITROGEN 21 mg/dL (7-20); CALCIUM 8.4 mg/dL (8.4-10.2); CARBON DIOXIDE 30 mmol/L (22-30); CHLORIDE 99 mmol/L (98-107); GLUCOSE 278 mg/dL (75-110); POTASSIUM 4.4 mmol/L (3.6-5.0)
[2018-10-18] MEDS ORDERED: MAG HYDROX/AL HYDROX/SIMETH SUSP 30 ML UDCUP PO PRN (15:27)
[2018-10-18] MEDS ORDERED: ACETAMINOPHEN 325 MG TABLET PO PRN (15:27)
[2018-10-18] MEDS ORDERED: MAGNESIUM HYDROXIDE SUSP 30 ML UDCUP PO PRN (15:27)
[2018-10-18] MEDS ORDERED: ONDANSETRON 4 MG TAB.RAPDIS PO PRN (15:27)
--- NOTE | 2018-10-18 15:42 | Progress Note Acknowledgement ---
Progress Note Acknowledgement Progess Note Acknowledgement: I, the undersigned member of the medical staff with appropriate privileges and with supervisory authority over [ PAC ], a dependent practice allied health professional, acknowledge that I have reviewed the progress notes entered on this patient, and in my professional judgment believe that the assessment made and/or any care evidenced was appropriate
--- NOTE | 2018-10-18 15:59 | PDOC H&P ---
History of Present Illness Admission Date/PCP: 10/18/18 14:01 NESS LUTZ MD [id number] female who this morning around 0 [id number] got up to go the bathroom and fell fracturing her right hip. Yesterday patient had surgery in [place] for metastatic lymphoma evolving the colon. She was instructed not to be up and ambulatory for 24 hours. This morning she got up to go the bathroom by herself either tripped or got weak and fell, fracturing her right hip. Per the radiologist reports she has an acute right comminuted anterior trochanteric proximal femoral fracture with mild varus angulation. We were asked to admit the patient orthopedic surgery. History of Present Illness: ANNIE GOODE is a 77 year old female Past Medical History Medical History: Other - Patient has a history of being diagnosed with lymphoma 6 years ago although she has been in remission for the last several years according to her and son Cardiac Medical History: Reports: Congestive Heart Failure - diastolic dy sfunction, Hyperlipidema, Hypertension - COZAAR-at bedtime Denies: Atrial Fibrillation, Coronary Artery Disease, DVT, Myocardial Infarction, Pulmonary Embolism Pulmonary Medical History: Reports: Pneumonia Denies: Asthma, Bronchitis, Chronic Obstructive Pulmonary Disease (COPD), Sleep Apnea Neurological Medical History: Denies: Seizures Endocrine Medical History: Reports: Diabetes Mellitus Type 1, Diabetes Mellitus Type 2, Hypothyroidism Denies: Hyperthyroidism Malignancy Medical History: 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; 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 GI Medical History: Denies: Cirrhosis, Gastroesophageal Reflux Disease, Hepatitis, Hiatal Hernia Musculoskeltal Medical History: Denies: Arthritis Psychiatric Medical History: Reports: Depression Hematology: Denies: Anemia, Sickle Cell Disease Infectious Medical History: Denies: Clostridium Difficile, Methicillin-Resistant Staph Aureus Past Surgical History Past Surgical History: Reports: Hysterectomy, Other Denies: Amputation, Mastectomy, Pacemaker Social History Smoking Status: Unknown if Ever Smoked Frequency of Alcohol Use: None Hx Recreational Drug Use: No Drugs: None Hx Prescription Drug Abuse: No Family History Family History: CAD, DM Parental Family History Reviewed: No Children Family History Reviewed: No Sibling(s) Family History Reviewed.: No Medication/Allergy Home Medications: Aspirin [Aspirin 81 mg Chewable Tablet] 81 mg PO DAILY 09/26/16 Atorvastatin Calcium [Lipitor 80 mg Tablet] 80 mg PO QHS 09/26/16 Carboxymethylcellulose Sodium [Refresh Celluvisc Drops] 1 dropperful OU BID 09/26/16 Cetirizine HCl [Zyrtec 10 mg Tablet] 10 mg PO DAILY 09/26/16 Citalopram Hydrobromide [Celexa 20 mg Tablet] 20 mg PO DAILY 09/26/16 Ergocalciferol (Vitamin D2) [Drisdol 50,000 unit (1.25MG) Capsule] 50,000 unit PO FR@1000 09/26/16 Insulin Aspart [Novolog Flexpen] 0 unit SUBCUT .SLD SCALE 09/26/16 Insulin Glargine,Hum.rec.anlog [Lantus Solostar] 4 unit SQ QHS 09/26/16 Insulin Glargine,Hum.rec.anlog [Lantus Solostar] 12 unit SQ QAM 09/26/16 Levothyroxine Sodium [Synthroid 0.1 mg Tablet] 0.1 mg PO QAM 09/26/16 Lisinopril [Prinivil 5 mg Tablet] 5 mg PO QHS 09/26/16 Metoprolol Tartrate [Lopressor 25 mg Tablet] 25 mg PO Q12 09/26/16 Oxycodone HCl/Acetaminophen [Percocet 5-325 mg Tablet] 1 tab PO BID 10/18/18 Pregabalin [Lyrica 100 Mg Capsule] 100 mg PO TID 10/18/18 Sulfamethoxazole/Trimethoprim [Bactrim Ds Tablet] 1 each PO BID 10/18/18 Allergies/Adverse Reactions: No Known Allergies Allergy (Verified 07/03/18 15:25) Review of Systems Constitutional: ABSENT: chills, fever(s), headache(s), weight gain, weight loss Cardiovascular: ABSENT: chest pain, dyspnea on exertion, edema, orthropnea, palpitations Respiratory: ABSENT: cough, hemoptysis Gastrointestinal: ABSENT: abdominal pain, constipation, diarrhea, hematemesis, hematochezia, nausea, vomiting Musculoskeletal: PRESENT: deformity - Right lower extremity shorter than the left with the right foot turned outward Neurological: ABSENT: abnormal gait, abnormal speech, confusion, dizziness, focal weakness, syncope Psychiatric: ABSENT: anxiety, depression, homidical ideation, suicidal ideation Physical Exam Vital Signs: Temp Pulse Resp BP Pulse Ox 98.4 F 90 18 143/49 H 94 08/08/19 10:04 10/18/18 10:04 10/18/18 10:04 10/18/18 13:01 10/18/18 13:02 Intake & Output 10/17/18 10/18/18 10/19/18 06:59 06:59 06:59 Intake Total 50 Balance 50 Results Laboratory Results: 10/18/18 12:58 10/18/18 12:58 10/18/18 10/18/18 10/18/18 11:05 12:58 12:58 WBC 7.6 RBC 3.72 Hgb 11.3 L Hct 34.0 L MCV 91 MCH 30.3 MCHC 33.2 RDW 15.0 H Plt Count 191 Seg Neutrophils % 84.6 H Lymphocytes % 6.4 L Monocytes % 8.3 Eosinophils % 0.0 Basophils % 0.7 Absolute Neutrophils 6.4 Absolute Lymphocytes 0.5 Absolute Monocytes 0.6 Absolute Eosinophils 0.0 Absolute Basophils 0.1 Sodium 135.8 L Potassium 4.4 Chloride 99 Carbon Dioxide 30 Anion Gap 7 BUN 21 H Creatinine 0.75 Est GFR ( Amer) > 60 Est GFR (Non-Af Amer) > 60 Glucose 278 H Calcium 8.4 Urine Color YELLOW Urine Appearance SLIGHTLY-CLOUDY Urine pH 6.0 Ur Specific [place] 1.013 Urine Protein >=500 H Urine Glucose (UA) >=500 H Urine Ketones 20 H Urine Blood LARGE H Urine Nitrite NEGATIVE Ur Leukocyte Esterase LARGE H Blood Type Antibody Screen 10/18/18 12:58 WBC RBC Hgb Hct MCV MCH MCHC RDW Plt Count Seg Neutrophils % Lymphocytes % Monocytes % Eosinophils % Basophils % Absolute Neutrophils Absolute Lymphocytes Absolute Monocytes Absolute Eosinophils Absolute Basophils Sodium Potassium Chloride Carbon Dioxide Anion Gap BUN Creatinine Est GFR ( Amer) Est GFR (Non-Af Amer) Glucose Calcium Urine Color Urine Appearance Urine pH Ur Specific [place] Urine Protein Urine Glucose (UA) Urine Ketones Urine Blood Urine Nitrite Ur Leukocyte Esterase Blood Type A POSITIVE Antibody Screen NEGATIVE Impressions: Hip/Pelvis X-Ray 10/18/18 00:00 IMPRESSION: Acute right comminuted intertrochanteric proximal femoral fracture with mild varus angulation Chest X-Ray 10/18/18 10:35 IMPRESSION: Cardiomegaly without acute abnormality of the lungs in AP projection. Assessment and Plan - Diagnosis (1) Hypertension Is this a current diagnosis for this admission?: Yes Plan: 10/18/2018 patient takes lisinopril 5 mg daily Lopressor 25 mg daily for hypertension, (2) Diabetes mellitus type 1 Qualifiers: Is this a current diagnosis for this admission?: Yes Plan: 10/18/2018 patient takes insulin glargine 4 units subcu nightly and 12 units subcu every morning she uses aspart or NovoLog sliding scale (3) Hyperlipidemia Is this a current diagnosis for this admission?: Yes Plan: 10/18/2018 patient takes Lipitor 80 mg nightly (4) Hypothyroid Is this a current diagnosis for this admission?: Yes Plan: 10/18/2017 patient takes Synthroid 0.1 mg every morning (5) T-cell lymphoma Is this a current diagnosis for this admission?: Yes Plan: 10/18/2017 patient was diagnosed with T-cell lymphoma 6 years ago. Patient recently has had a recurrence of her lymphoma and her colon. - Time Time Spent with patient: 35 or more minutes
[2018-10-18 16:05] LABS: PROTHROMBIN TIME 14.3 SEC (11.4-15.4)
[2018-10-18] MEDS: MORPHINE SULFATE 10 MG/ML INJ IV PRN ×2 (16:21→21:38)
[2018-10-18] MEDS: 1/2 NORMAL SALINE 1,000 ML IV PRN (16:25)
[2018-10-18] MEDS: PREGABALIN 100 MG CAPSULE PO SCH (18:57)
[2018-10-18] MEDS: SULFAMETHOXAZOLE/TRIMETHOPRIM 800-160 MG TABLET PO SCH (18:57)
[2018-10-18] MEDS: OXYCODONE-ACETAMINOPHEN 5-325 MG TABLET PO PRN (18:58)
[2018-10-18] MEDS ORDERED: DEXTROSE 50%-WATER SYRINGE 25 GM/50 ML DOSE IV PRN (19:30)
[2018-10-18] MEDS ORDERED: DEXTROSE 50%-WATER SYRINGE 12.5 GM/25 ML DOSE IV PRN (19:30)
[2018-10-18] MEDS ORDERED: GLUCAGON,HUMAN RECOMB 1 MG INJ IM PRN (19:30)
[2018-10-18] MEDS ORDERED: DEXTROSE 40% GEL 15 GM TUBE PO PRN (19:30)
[2018-10-18] MEDS ORDERED: DEXTROSE 40% GEL 15 GM TUBE X 2 PO PRN (19:30)
[2018-10-18] MEDS: ONDANSETRON HCL INJ/PF 4 MG/2 ML SDV IV PRN (21:36)
[2018-10-18] MEDS: ATORVASTATIN CALCIUM 80 MG TABLET PO SCH (21:39)
[2018-10-18] MEDS: LISINOPRIL 5 MG TABLET PO SCH (21:40)
[2018-10-18] MEDS: FAMOTIDINE 20 MG TABLET PO SCH (21:40)
[2018-10-18] MEDS: INSULIN LISPRO 100 UNIT/ML 3 ML VIAL SUBCUT SCH (21:41)
[2018-10-18] MEDS: METOPROLOL TARTRATE 25 MG TABLET PO SCH (21:42)
[2018-10-19 04:54] LABS: ABSOLUTE BASOPHILS # (AUTO) 0.1 10^3/uL (0.0-0.2); ABSOLUTE EOSINOPHILS # (AUTO) 0.2 10^3/uL (0.0-0.6); ABSOLUTE LYMPHOCYTES (AUTO) 1.1 10^3/uL (0.5-4.7); ABSOLUTE MONOCYTES (AUTO) 1.3 10^3/uL (0.1-1.4); ABSOLUTE NEUT (AUTO) 5.1 10^3/uL (1.7-8.2); BASOPHILS % (AUTO) 0.8 % (0-2); EOSINOPHILS % (AUTO) 2.5 % (0-6); HEMATOCRIT 33.9 % (36.0-47.0); HEMOGLOBIN 11.2 g/dL (12.0-15.5); LYMPHOCYTES % (AUTO) 14.5 % (13-45); MEAN CORPUSCULAR HEMOGLOBIN 30.6 pg (27.0-33.4); MEAN CORPUSCULAR HGB CONC 33.1 g/dL (32.0-36.0); MEAN CORPUSCULAR VOLUME 92 fl (80-97); MONOCYTES % (AUTO) 17.2 % (3-13); PLATELET COUNT 183 10^3/uL (150-450); RED BLOOD COUNT 3.68 10^6/uL (3.72-5.28); TOTAL CELLS COUNTED % (AUTO) 100 %; WHITE BLOOD COUNT 7.8 10^3/uL (4.0-10.5)
[2018-10-19 05:07] LABS: ANION GAP 7 (5-19); BLOOD UREA NITROGEN 24 mg/dL (7-20); CALCIUM 8.6 mg/dL (8.4-10.2); CARBON DIOXIDE 30 mmol/L (22-30); CHLORIDE 102 mmol/L (98-107); GLUCOSE 196 mg/dL (75-110); POTASSIUM 4.6 mmol/L (3.6-5.0)
[2018-10-19] MEDS: MORPHINE SULFATE 10 MG/ML INJ IV PRN ×3 (05:18→20:30)
[2018-10-19] MEDS: 1/2 NORMAL SALINE 1,000 ML IV PRN ×2 (05:18→17:15)
[2018-10-19] MEDS: LEVOTHYROXINE SODIUM 0.1 MG TABLET PO SCH (05:19)
--- NOTE | 2018-10-19 08:51 | PDOC CONSULTATION ---
Consultation Consult Date: 10/19/18 Provider Consulted: NESS LUTZ Consult reason:: Hematology/Oncology consultation was requested for patient known to Dr. Lutz with history of T-cell lymphoma as well as a new kidney mass. History of Present Illness Admission Date/PCP: 10/18/18 14:01 NESS LUTZ MD History of Present Illness: ANNIE GOODE is a 77 year old female who is known to our practice. She was initially diagnosed with T-cell lymphoma in Mar 2012. She underwent treatment with [facility] and adcentric in the past, but has been without evidence of disease 12/2013. Most recent adcentic was 12/08/2016. In July 2018, she was found to have a new kidney mass. Thought to be a primary renal cell carcinoma. She was referred to Dr. Jeff Denton and underwent biopsy with renal stent placement in September. 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 It was not felt that she would be a good candidate for aggressive nephrectomy, so endoscopic procedure was done on Oct 17. She underwent partial nephrectomy and placement of renal stent. No path is available from this procedure yet. Shortly after returning home from this, she fell getting up to the bathroom and broke her right hip. Currently, she is very sleepy and confused and complains of pain in her right hip. She is unable to tell me her date of , the name of her doctors, or what happened. She does remember that she has 2 children. Past Medical History Cardiac Medical History: Reports: Congestive Heart Failure - diastolic dysfunction, Hyperlipidema, Hypertension - COZAAR-at bedtime Denies: Atrial Fibrillation, Coronary Artery Disease, DVT, Myocardial Infarction, Pulmonary Embolism Pulmonary Medical History: Reports: Pneumonia Denies: Asthma, Bronchitis, Chronic Obstructive Pulmonary Disease (COPD), Sleep Apnea Neurological Medical History: Denies: Seizures Endocrine Medical History: Reports: Diabetes Mellitus Type 1, Diabetes Mellitus Type 2, Hypothyroidism Denies: Hyperthyroidism Malignancy Medical History: 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; 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 GI Medical History: Denies: Cirrhosis, Gastroesophageal Reflux Disease, Hepatitis, Hiatal Hernia Musculoskeltal Medical History: Denies: Arthritis Psychiatric Medical History: Reports: Depression Hematology: Denies: Anemia, Sickle Cell Disease Infectious Medical History: Denies: Clostridium Difficile, Methicillin-Resistant Staph Aureus Past Surgical History Past Surgical History: Reports: Hysterectomy, Other Denies: Amputation, Mastectomy, Pacemaker Social History Smoking Status: Former Smoker Last Time Smoked: 10 YEARS AGO Frequency of Alcohol Use: None Hx Recreational Drug Use: No Drugs: None Hx Prescription Drug Abuse: No Family History Family History: Reviewed & Not Pertinent, CAD, DM Parental Family History Reviewed: Yes - Mother with breast cancer. Father with dementia Children Family History Reviewed: No Sibling(s) Family History Reviewed.: No Medication/Allergy Home Medications: Aspirin [Aspirin 81 mg Chewable Tablet] 81 mg PO DAILY 09/26/16 Atorvastatin Calcium [Lipitor 80 mg Tablet] 80 mg PO QHS 09/26/16 Carboxymethylcellulose Sodium [Refresh Celluvisc Drops] 1 dropperful OU BID 09/26/16 Cetirizine HCl [Zyrtec 10 mg Tablet] 10 mg PO DAILY 09/26/16 Citalopram Hydrobromide [Celexa 20 mg Tablet] 20 mg PO DAILY 09/26/16 Ergocalciferol (Vitamin D2) [Drisdol 50,000 unit (1.25MG) Capsule] 50,000 unit PO FR@1000 09/26/16 Insulin Aspart [Novolog Flexpen] 0 unit SUBCUT .SLD SCALE 09/26/16 Insulin Glargine,Hum.rec.anlog [Lantus Solostar] 4 unit SQ QHS 09/26/16 Insulin Glargine,Hum.rec.anlog [Lantus Solostar] 12 unit SQ QAM 09/26/16 Levothyroxine Sodium [Synthroid 0.1 mg Tablet] 0.1 mg PO QAM 09/26/16 Lisinopril [Prinivil 5 mg Tablet] 5 mg PO QHS 09/26/16 Metoprolol Tartrate [Lopressor 25 mg Tablet] 25 mg PO Q12 09/26/16 Oxycodone HCl/Acetaminophen [Percocet 5-325 mg Tablet] 1 tab PO BID 10/18/18 Pregabalin [Lyrica 100 Mg Capsule] 100 mg PO TID 10/18/18 Sulfamethoxazole/Trimethoprim [Bactrim Ds Tablet] 1 each PO BID 10/18/18 Allergies/Adverse Reactions: No Known Allergies Allergy (Verified 07/03/18 15:25) Review of Systems Constitutional: ABSENT: fever(s), headache(s) Eyes: ABSENT: visual disturbances Ears: ABSENT: hearing changes Nose, Mouth, and Throat: ABSENT: sore throat Cardiovascular: ABSENT: chest pain Respiratory: ABSENT: dyspnea Gastrointestinal: ABSENT: nausea Musculoskeletal: PRESENT: deformity, other - Pain as per HPI Neurological: PRESENT: confusion, weakness Hematologic/Lymphatic: ABSENT: easy bleeding Physical Exam Vital Signs: Temp Pulse Resp BP Pulse Ox 98.1 F 65 19 116/41 L 96 10/18/18 23:37 10/18/18 23:37 10/18/18 23:37 10/18/18 23:37 10/18/18 23:37 Intake & Output 10/18/18 10/19/18 10/20/18 06:59 06:59 06:59 Intake Total 1250 Output Total 1250 Balance 0 Weight 62.1 kg General appearance: PRESENT: no acute distress, well-developed, well-nourished Exam: 77 year old female. Sleepy and confused, but still having pain with movement. Head exam: PRESENT: atraumatic Mouth exam: PRESENT: moist Neck exam: ABSENT: lymphadenopathy, tenderness Respiratory exam: PRESENT: clear to auscultation dinora, unlabored Cardiovascular exam: PRESENT: RRR GI/Abdominal exam: PRESENT: soft. ABSENT: distended, tenderness Extremities exam: ABSENT: pedal edema Musculoskeletal exam: PRESENT: tenderness Neurological exam: PRESENT: alert. ABSENT: oriented to person, oriented to place, oriented to time, oriented to situation Psychiatric exam: PRESENT: appropriate affect Skin exam: PRESENT: normal color Results Laboratory Results: 10/19/18 04:34 10/19/18 04:34 10/18/18 10/18/18 10/18/18 11:05 12:58 12:58 WBC 7.6 RBC 3.72 Hgb 11.3 L Hct 34.0 L MCV 91 MCH 30.3 MCHC 33.2 RDW 15.0 H Plt Count 191 Seg Neutrophils % 84.6 H Lymphocytes % 6.4 L Monocytes % 8.3 Eosinophils % 0.0 Basophils % 0.7 Absolute Neutrophils 6.4 Absolute Lymphocytes 0.5 Absolute Monocytes 0.6 Absolute Eosinophils 0.0 Absolute Basophils 0.1 Sodium 135.8 L Potassium 4.4 Chloride 99 Carbon Dioxide 30 Anion Gap 7 BUN 21 H Creatinine 0.75 Est GFR ( Amer) > 60 Est GFR (Non-Af Amer) > 60 Glucose 278 H Calcium 8.4 Urine Color YELLOW Urine Appearance SLIGHTLY-CLOUDY Urine pH 6.0 Ur Specific [place] 1.013 Urine Protein >=500 H Urine Glucose (UA) >=500 H Urine Ketones 20 H Urine Blood LARGE H Urine Nitrite NEGATIVE Ur Leukocyte Esterase LARGE H Blood Type Antibody Screen 10/18/18 10/19/18 10/19/18 12:58 04:34 04:34 WBC 7.8 RBC 3.68 L Hgb 11.2 L Hct 33.9 L MCV 92 MCH 30.6 MCHC 33.1 RDW 15.0 H Plt Count 183 Seg Neutrophils % 65.0 Lymphocytes % 14.5 Monocytes % 17.2 H Eosinophils % 2.5 Basophils % 0.8 Absolute Neutrophils 5.1 Absolute Lymphocytes 1.1 Absolute Monocytes 1.3 Absolute Eosinophils 0.2 Absolute Basophils 0.1 Sodium 138.9 Potassium 4.6 Chloride 102 Carbon Dioxide 30 Anion Gap 7 BUN 24 H Creatinine 0.84 Est GFR ( Amer) > 60 Est GFR (Non-Af Amer) > 60 Glucose 196 H Calcium 8.6 Urine Color Urine Appearance Urine pH Ur Specific [place] Urine Protein Urine Glucose (UA) Urine Ketones Urine Blood Urine Nitrite Ur Leukocyte Esterase Blood Type A POSITIVE Antibody Screen NEGATIVE Impressions: Hip/Pelvis X-Ray 10/18/18 00:00 IMPRESSION: Acute right comminuted intertrochanteric proximal femoral fracture with mild varus angulation Chest X-Ray 10/18/18 10:35 IMPRESSION: Cardiomegaly without acute abnormality of the lungs in AP projection. Assessment & Plan - Diagnosis (1) Cancer of right kidney Is this a current diagnosis for this admission?: Yes Plan: Surgery 2 days ago. Await path report from this procedure, but no evidence of bone mets prior to procedure. Will try to get further records. (2) Fracture of femoral neck, right, closed Qualifiers: Encounter type: initial encounter Qualified Code(s): S72.001A - Fracture of unspecified part of neck of right femur, initial encounter for closed fracture Is this a current diagnosis for this admission?: Yes Plan: To see ortho today, hopefully will be able to have surgery for this. (3) T-cell lymphoma Is this a current diagnosis for this admission?: Yes Plan: Currently with no evidence of disease. - Plan Summary Plan Summary: Patient will be high risk for DVT and after surgery completed, should have prophylaxis. We will continue to follow her with you. Please call with any questions or concerns.
[2018-10-19] MEDS: INSULIN GLARGINE,HUM.REC.ANLOG 1,000 UNIT/10 ML VIAL SUBCUT SCH (09:09)
[2018-10-19] MEDS: INSULIN LISPRO 100 UNIT/ML 3 ML VIAL SUBCUT SCH ×4 (09:15→21:56)
[2018-10-19] MEDS: METOPROLOL TARTRATE 25 MG TABLET PO SCH ×2 (09:28→21:56)
[2018-10-19] MEDS: DOCUSATE SODIUM 100 MG CAPSULE PO SCH (10:35)
[2018-10-19] MEDS: PREGABALIN 100 MG CAPSULE PO SCH ×3 (10:35→17:30)
[2018-10-19] MEDS: CITALOPRAM HYDROBROMIDE 20 MG TABLET PO SCH (10:35)
[2018-10-19] MEDS: FAMOTIDINE 20 MG TABLET PO SCH ×2 (10:35→21:56)
[2018-10-19] MEDS: SULFAMETHOXAZOLE/TRIMETHOPRIM 800-160 MG TABLET PO SCH ×2 (10:35→17:30)
--- NOTE | 2018-10-19 11:32 | PDOC CONSULTATION ---
Consultation Consult Date: 10/19/18 Provider Consulted: JANEEN YANES Consult reason:: Right hip intertrochanteric fracture History of Present Illness Admission Date/PCP: 10/18/18 14:01 NESS LUTZ MD History of Present Illness: ANNIE GOODE is a 77 year old female who sustained a fall at home yesterday resulting in a displaced fracture of the right hip. She had undergone a cystosc opy in [place]. She had been instructed not to ambulate on her own for 24 hours. Unfortunately she got out of bed on her own, and fell to the ground. Evaluated in the emergency room at [facility] and admitted to the medical service. Past Medical History Cardiac Medical History: Reports: Congestive Heart Failure - diastolic dysfunction, Hyperlipidema, Hypertension - COZAAR-at bedtime, Other - Lymphoma Denies: Atrial Fibrillation, Coronary Artery Disease, DVT, Myocardial Infarction, Pulmonary Embolism Pulmonary Medical History: Reports: Pneumonia Denies: Asthma, Bronchitis, Chronic Obstructive Pulmonary Disease (COPD), Sleep Apnea Neurological Medical History: Denies: Seizures Endocrine Medical History: Reports: Diabetes Mellitus Type 1, Diabetes Mellitus Type 2, Hypothyroidism Denies: Hyperthyroidism Malignancy Medical History: 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; 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 GI Medical History: Denies: Cirrhosis, Gastroesophageal Reflux Disease, Hepatitis, Hiatal Hernia Musculoskeltal Medical History: Reports: Other - Left hip hemiarthroplasty for fracture Denies: Arthritis Psychiatric Medical History: Reports: Depression Hematology: Denies: Anemia, Sickle Cell Disease Infectious Medical History: Denies: Clostridium Difficile, Methicillin-Resistant Staph Aureus Past Surgical History Past Surgical History: Reports: Hysterectomy, Orthopedic Surgery - Left hip hemiarthroplasty for fracture, Other - Cystoscopy Denies: Amputation, Mastectomy, Pacemaker Social History Lives with: Family Smoking Status: Former Smoker Last Time Smoked: 10 YEARS AGO Frequency of Alcohol Use: None Hx Recreational Drug Use: No Drugs: None Hx Prescription Drug Abuse: No Family History Family History: Reviewed & Not Pertinent - Patient is 77 years old. Parental Family History Reviewed: Yes Children Family History Reviewed: Yes Sibling(s) Family History Reviewed.: Yes Medication/Allergy Home Medications: Aspirin [Aspirin 81 mg Chewable Tablet] 81 mg PO DAILY 09/26/16 Atorvastatin Calcium [Lipitor 80 mg Tablet] 80 mg PO QHS 09/26/16 Carboxymethylcellulose Sodium [Refresh Celluvisc Drops] 1 dropperful OU BID 09/26/16 Cetirizine HCl [Zyrtec 10 mg Tablet] 10 mg PO DAILY 09/26/16 Citalopram Hydrobromide [Celexa 20 mg Tablet] 20 mg PO DAILY 09/26/16 Ergocalciferol (Vitamin D2) [Drisdol 50,000 unit (1.25MG) Capsule] 50,000 unit PO FR@1000 09/26/16 Insulin Aspart [Novolog Flexpen] 0 unit SUBCUT .SLD SCALE 09/26/16 Insulin Glargine,Hum.rec.anlog [Lantus Solostar] 4 unit SQ QHS 09/26/16 Insulin Glargine,Hum.rec.anlog [Lantus Solostar] 12 unit SQ QAM 09/26/16 Levothyroxine Sodium [Synthroid 0.1 mg Tablet] 0.1 mg PO QAM 09/26/16 Lisinopril [Prinivil 5 mg Tablet] 5 mg PO QHS 09/26/16 Metoprolol Tartrate [Lopressor 25 mg Tablet] 25 mg PO Q12 09/26/16 Oxycodone HCl/Acetaminophen [Percocet 5-325 mg Tablet] 1 tab PO BID 10/18/18 Pregabalin [Lyrica 100 Mg Capsule] 100 mg PO TID 10/18/18 Sulfamethoxazole/Trimethoprim [Bactrim Ds Tablet] 1 each PO BID 10/18/18 Allergies/Adverse Reactions: No Known Allergies Allergy (Verified 07/03/18 15:25) Review of Systems Eyes: ABSENT: as per HPI, visual disturbances, other Cardiovascular: ABSENT: chest pain, dyspnea on exertion, edema, orthropnea, palpitations Respiratory: ABSENT: cough, hemoptysis Gastrointestinal: ABSENT: abdominal pain, constipation, diarrhea, hematemesis, hematochezia, nausea, vomiting Genitourinary: ABSENT: dysuria, hematuria Musculoskeletal: ABSENT: joint swelling Integumentary: ABSENT: rash, wounds Neurological: ABSENT: abnormal gait, abnormal speech, confusion, dizziness, focal weakness, syncope Psychiatric: ABSENT: anxiety, depression, homidical ideation, suicidal ideation Endocrine: ABSENT: cold intolerance, heat intolerance, polydipsia, polyuria Hematologic/Lymphatic: ABSENT: easy bleeding, easy bruising Physical Exam Vital Signs: Temp Pulse Resp BP Pulse Ox 98.2 F 81 13 139/56 H 95 10/19/18 07:37 10/19/18 07:37 10/19/18 07:37 10/19/18 07:37 10/19/18 07:37 Intake & Output 10/18/18 10/19/18 10/20/18 06:59 06:59 06:59 Intake Total 1250 Output Total 1250 Balance 0 Weight 62.1 kg General appearance: PRESENT: no acute distress Head exam: PRESENT: atraumatic Eye exam: PRESENT: EOMI, PERRLA Ear exam: PRESENT: TM's normal bilaterally Mouth exam: PRESENT: moist, neck supple Neck exam: PRESENT: full ROM Respiratory exam: PRESENT: clear to auscultation dinora. ABSENT: rales, rhonchi, wheezes Cardiovascular exam: PRESENT: RRR. ABSENT: diastolic murmur, rubs, systolic murmur Pulses: PRESENT: normal dorsalis pedis pul Vascular exam: PRESENT: normal capillary refill GI/Abdominal exam: PRESENT: normal bowel sounds, soft. ABSENT: distended, guarding, mass, organolmegaly, rebound, tenderness Rectal exam: PRESENT: deferred Extremities exam: PRESENT: full ROM. ABSENT: calf tenderness, clubbing, pedal edema Musculoskeletal exam: PRESENT: other - The right lower extremity is shortened and externally rotated. The patient is able to dorsiflex and plantarflex the foot. Sensation is intact to touch. There are normal pedal pulses. Neurological exam: PRESENT: alert, awake, oriented to person, oriented to place, oriented to time, oriented to situation, CN II-XII grossly intact. ABSENT: motor sensory deficit Psychiatric exam: PRESENT: appropriate affect, normal mood. ABSENT: homicidal ideation, suicidal ideation Skin exam: PRESENT: dry, intact, warm. ABSENT: cyanosis, rash Results Laboratory Results: 10/19/18 04:34 10/19/18 04:34 10/18/18 10/18/18 10/18/18 11:05 12:58 12:58 WBC 7.6 RBC 3.72 Hgb 11.3 L Hct 34.0 L MCV 91 MCH 30.3 MCHC 33.2 RDW 15.0 H Plt Count 191 Seg Neutrophils % 84.6 H Lymphocytes % 6.4 L Monocytes % 8.3 Eosinophils % 0.0 Basophils % 0.7 Absolute Neutrophils 6.4 Absolute Lymphocytes 0.5 Absolute Monocytes 0.6 Absolute Eosinophils 0.0 Absolute Basophils 0.1 Sodium 135.8 L Potassium 4.4 Chloride 99 Carbon Dioxide 30 Anion Gap 7 BUN 21 H Creatinine 0.75 Est GFR ( Amer) > 60 Est GFR (Non-Af Amer) > 60 Glucose 278 H Calcium 8.4 Urine Color YELLOW Urine Appearance SLIGHTLY-CLOUDY Urine pH 6.0 Ur Specific [place] 1.013 Urine Protein >=500 H Urine Glucose (UA) >=500 H Urine Ketones 20 H Urine Blood LARGE H Urine Nitrite NEGATIVE Ur Leukocyte Esterase LARGE H Blood Type Antibody Screen 10/18/18 10/19/18 10/19/18 12:58 04:34 04:34 WBC 7.8 RBC 3.68 L Hgb 11.2 L Hct 33.9 L MCV 92 MCH 30.6 MCHC 33.1 RDW 15.0 H Plt Count 183 Seg Neutrophils % 65.0 Lymphocytes % 14.5 Monocytes % 17.2 H Eosinophils % 2.5 Basophils % 0.8 Absolute Neutrophils 5.1 Absolute Lymphocytes 1.1 Absolute Monocytes 1.3 Absolute Eosinophils 0.2 Absolute Basophils 0.1 Sodium 138.9 Potassium 4.6 Chloride 102 Carbon Dioxide 30 Anion Gap 7 BUN 24 H Creatinine 0.84 Est GFR ( Amer) > 60 Est GFR (Non-Af Amer) > 60 Glucose 196 H Calcium 8.6 Urine Color Urine Appearance Urine pH Ur Specific [place] Urine Protein Urine Glucose (UA) Urine Ketones Urine Blood Urine Nitrite Ur Leukocyte Esterase Blood Type A POSITIVE Antibody Screen NEGATIVE Impressions: Hip/Pelvis X-Ray 10/18/18 00:00 IMPRESSION: Acute right comminuted intertrochanteric proximal femoral fracture with mild varus angulation Chest X-Ray 10/18/18 10:35 IMPRESSION: Cardiomegaly without acute abnormality of the lungs in AP projection. Assessment & Plan - Diagnosis (1) Intertrochanteric fracture of right hip Qualifiers: Encounter type: initial encounter Fracture type: closed Fracture alignment: displaced Qualified Code(s): S72.141A - Displaced intertrochanteric fracture of right femur, initial encounter for closed fracture Is this a current diagnosis for this admission?: Yes - Time Time Spent: 30 to 50 Minutes Medications reviewed and adjusted accordingly: Yes Anticipated discharge: SNF Within: within 72 hours - Inpatient Certification I certify that my determination is in accordance with my understanding of Medicare's requirements for reasonable and necessary INPATIENT services [42 CFR 412.3e].: Yes - Plan Summary Plan Summary: The patient has sustained a displaced fracture of the right hip in the intertrochanteric region. I have recommended intramedullary nail fixation of the right hip. Risks, benefits, and alternatives were discussed with the patient, her , and daughter. Risks include the risk of , the risk of infection, the risk of nonunion and malunion, and the possible need for additional surgery. An opportunity for questions was provided. All questions were answered to their satisfaction. They expressed understanding and wished to proceed.
[2018-10-19] MEDS: OXYCODONE-ACETAMINOPHEN 5-325 MG TABLET PO PRN (11:45)
--- NOTE | 2018-10-19 12:13 | PDOC PROGRESS REPORT ---
Subjective Progress Note for:: 10/19/18 Subjective:: 10/19/2018 patient is seen today for follow-up medicine rounds. Patient is medically stable vital signs are stable blood pressure 139/56 temperature 98.2 pulse 81 O2 sat 95% on 1 L. Patient is on sliding scale treating her diabetes, using either Percocet or morphine for her pain. CBC and electrolytes are normal urinalysis is suspicious for UTI, culture is pending Patient is scheduled for surgical repair of fractured hip today at approximately 1300 hrs. patient appears to be medically stable now. Will follow postop. Patient taking lisinopril,metoprolol, Lyrica, Celexa, Lipitor, Lantus Synthroid May need postop antibiotics for UTI Reason For Visit: FRACTURE RIGHT HIP Physical Exam Vital Signs: Temp Pulse Resp BP Pulse Ox 98.2 F 81 13 139/56 H 95 10/19/18 07:37 10/19/18 07:37 10/19/18 07:37 10/19/18 07:37 10/19/18 07:37 Intake & Output 10/18/18 10/19/18 10/20/18 06:59 06:59 06:59 Intake Total 1250 Output Total 1250 Balance 0 Weight 62.1 kg General appearance: PRESENT: mild distress Respiratory exam: PRESENT: clear to auscultation dinora. ABSENT: rales, rhonchi, wheezes Cardiovascular exam: PRESENT: RRR. ABSENT: diastolic murmur, rubs, systolic murmur GI/Abdominal exam: PRESENT: normal bowel sounds, soft. ABSENT: distended, guarding, mass, organolmegaly, rebound, tenderness Neurological exam: PRESENT: alert, awake, oriented to person, oriented to place, oriented to time Psychiatric exam: PRESENT: appropriate affect, normal mood. ABSENT: homicidal ideation, suicidal ideation Results Laboratory Results: 10/19/18 04:34 10/19/18 04:34 10/18/18 10/18/18 10/18/18 12:58 12:58 12:58 WBC 7.6 RBC 3.72 Hgb 11.3 L Hct 34.0 L MCV 91 MCH 30.3 MCHC 33.2 RDW 15.0 H Plt Count 191 Seg Neutrophils % 84.6 H Lymphocytes % 6.4 L Monocytes % 8.3 Eosinophils % 0.0 Basophils % 0.7 Absolute Neutrophils 6.4 Absolute Lymphocytes 0.5 Absolute Monocytes 0.6 Absolute Eosinophils 0.0 Absolute Basophils 0.1 Sodium 135.8 L Potassium 4.4 Chloride 99 Carbon Dioxide 30 Anion Gap 7 BUN 21 H Creatinine 0.75 Est GFR ( Amer) > 60 Est GFR (Non-Af Amer) > 60 Glucose 278 H Calcium 8.4 Blood Type A POSITIVE Antibody Screen NEGATIVE 10/19/18 10/19/18 04:34 04:34 WBC 7.8 RBC 3.68 L Hgb 11.2 L Hct 33.9 L MCV 92 MCH 30.6 MCHC 33.1 RDW 15.0 H Plt Count 183 Seg Neutrophils % 65.0 Lymphocytes % 14.5 Monocytes % 17.2 H Eosinophils % 2.5 Basophils % 0.8 Absolute Neutrophils 5.1 Absolute Lymphocytes 1.1 Absolute Monocytes 1.3 Absolute Eosinophils 0.2 Absolute Basophils 0.1 Sodium 138.9 Potassium 4.6 Chloride 102 Carbon Dioxide 30 Anion Gap 7 BUN 24 H Creatinine 0.84 Est GFR ( Amer) > 60 Est GFR (Non-Af Amer) > 60 Glucose 196 H Calcium 8.6 Blood Type Antibody Screen Impressions: Hip/Pelvis X-Ray 10/18/18 00:00 IMPRESSION: Acute right comminuted intertrochanteric proximal femoral fracture with mild varus angulation Chest X-Ray 10/18/18 10:35 IMPRESSION: Cardiomegaly without acute abnormality of the lungs in AP projection. Assessment and Plan - Diagnosis (1) Hypertension Is this a current diagnosis for this admission?: Yes Plan: 10/18/2018 patient takes lisinopril 5 mg daily Lopressor 25 mg daily for hypertension, 10/19/2018 pressures under good control averaging around 140/60 (2) Diabetes mellitus type 1 Qualifiers: Is this a current diagnosis for this admission?: Yes Plan: 10/18/2018 patient takes insulin glargine 4 units subcu nightly and 12 units subcu every morning she uses aspart or NovoLog sliding scale 10/19/2018 sugars are running anywhere from around 230-300 and covered with a sliding scale (3) Hyperlipidemia Is this a current diagnosis for this admission?: Yes Plan: 10/18/2018 patient takes Lipitor 80 mg nightly 10-19-18 patient stable (4) Hypothyroid Is this a current diagnosis for this admission?: Yes Plan: 10/18/2017 patient takes Synthroid 0.1 mg every morning 10/19/2018 we will check a TSH today or tomorrow (5) T-cell lymphoma Is this a current diagnosis for this admission?: Yes Plan: 10/18/2018 patient was diagnosed with T-cell lymphoma 6 years ago. Patient recently has had a recurrence of her lymphoma and her colon. 10/19/2018 patient is being followed by oncology Dr. Rosa, he stated that she will need prophylactic treatment for DVT following orthopedic surgery and will coordinate this with orthopedics to the timing postop. Obviously bleeding postop is a concern - Time Time Spent with patient: 15-24 minutes
[2018-10-19] MEDS ORDERED: CEFAZOLIN SODIUM 2 GM in DEXTROSE 5%-WATER 100 ML IV PRN (13:15)
[2018-10-19] MEDS ORDERED: MIDAZOLAM 2 MG/2 ML INJ ONE (14:14)
[2018-10-19] MEDS ORDERED: PROPOFOL INJ 200 MG/20 ML VIAL IV ONE ×2 (14:14→14:15)
[2018-10-19] MEDS ORDERED: FENTANYL CITRATE INJ/PF 100 MCG/2 ML AMPUL ONE (14:14)
[2018-10-19] MEDS ORDERED: EPHEDRINE SULFATE INJ 50 MG/1 ML AMPULE ONE (15:05)
[2018-10-19] MEDS ORDERED: DIPHENHYDRAMINE HCL 50 MG/ML VIAL IV PRN (15:34)
[2018-10-19] MEDS ORDERED: PROMETHAZINE HCL INJ 25 MG/1 ML VIAL IV PRN ×2 (15:34)
[2018-10-19] MEDS ORDERED: ONDANSETRON HCL INJ/PF 4 MG/2 ML SDV IV PRN (15:34)
[2018-10-19] MEDS ORDERED: OXYCODONE-ACETAMINOPHEN 5-325 MG TABLET PO PRN ×2 (15:34)
[2018-10-19] MEDS ORDERED: FENTANYL CITRATE INJ/PF 100 MCG/2 ML AMPUL IV PRN ×3 (15:34)
[2018-10-19] MEDS ORDERED: MEPERIDINE HCL/PF INJ 25 MG/1 ML DISP.SYRIN IV PRN (15:34)
--- NOTE | 2018-10-19 16:28 | Operative Report ---
Operative Report DATE OF SURGERY: 10/19/18 PREOPERATIVE DIAGNOSIS: Right hip displaced intertrochanteric fracture POSTOPERATIVE DIAGNOSIS: Same OPERATION: Right hip intramedullary nail with Synthes TFN SURGEON: JANEEN YANES ANESTHESIA: GA COMPLICATIONS: None ESTIMATED BLOOD LOSS: 50 cc PROCEDURE: Indications for procedure: Patient is a 77-year-old woman who sustained a low- energy fall at home yesterday resulting in a displaced intertrochanteric fracture of the right hip. Description of procedure. Patient was brought to the operating room. Anesthesia attempted to place a spinal block but was unsuccessful. Patient underwent general anesthesia. She was positioned supine on a fracture table. Patient received 2 g of Ancef. Fracture was reduced and the position of fragments was confirmed to be anatomic using image intensification. The right lower extremity was then prepped with ChloraPrep and draped in standard fashion. An incision was made through skin proximal to the trochanter. Under image intensification a guidewire was placed in the appropriate position of the greater trochanter. This guidewire was overreamed. Synthes TFN intramedullary nail was placed down the canal. With the Synthes guide a wire was placed centrally within the femoral head. The guidewires position was checked under image intensification. It was then measured and reamed. Spiral blade was impacted into position and locked in dynamic mode. Static locking of the nail was then performed distal to the fracture site. The wounds were irrigated with normal saline. The fascia was reapproximated with 2-0 Vicryl. The skin was reapproximated with marcela and a sterile dressing was applied. The patient tolerated the procedure well without complication and was brought to the recovery room in stable condition.
--- NOTE | 2018-10-19 17:03 | RADIOLOGY REPORT (SQ) ---
EXAM DESCRIPTION: NO CHG FLUORO; HIP RIGHT AP/LATERAL COMPLETED DATE/TIME: 10/19/2018 4:45 pm REASON FOR STUDY: HIP NAILING COMPARISON: 10/18/2018 FLUOROSCOPY TIME: 1.2 minutes 4 images saved to PACS LIMITATIONS: None. PROCEDURE: Intraoperative fluoroscopic images demonstrate evidence of dynamic screw femoral gladys fixa tion. Please see operative report for detailed description. FINDINGS: As above IMPRESSION: Intraoperative fluoroscopic images obtained. Please see operative report. COMMENT: PQRS 6045F: Fluoroscopy time of the procedure is documented in the report. TECHNICAL DOCUMENTATION: JOB ID: [id number] [employer]- All Rights Reserved Reading location - IP/workstation name: [email or web address]
--- NOTE | 2018-10-19 17:03 | RADIOLOGY REPORT (SQ) ---
EXAM DESCRIPTION: NO CHG FLUORO; HIP RIGHT AP/LATERAL COMPLETED DATE/TIME: 10/19/2018 4:45 pm REASON FOR STUDY: HIP NAILING COMPARISON: 10/18/2018 FLUOROSCOPY TIME: 1.2 minutes 4 images saved to PACS LIMITATIONS: None. PROCEDURE: Intraoperative fluoroscopic images demonstrate evidence of dynamic screw femoral gladys fixa tion. Please see operative report for detailed description. FINDINGS: As above IMPRESSION: Intraoperative fluoroscopic images obtained. Please see operative report. COMMENT: PQRS 6045F: Fluoroscopy time of the procedure is documented in the report. TECHNICAL DOCUMENTATION: JOB ID: [id number] [employer]- All Rights Reserved Reading location - IP/workstation name: [email or web address]
[2018-10-19] MEDS ORDERED: DEXAMETHASONE SOD PHOSPHATE INJ 4 MG/1 ML VIAL ONE (20:01)
[2018-10-19] MEDS ORDERED: ONDANSETRON HCL INJ/PF 4 MG/2 ML SDV ONE (20:01)
[2018-10-19] MEDS: LISINOPRIL 5 MG TABLET PO SCH (21:56)
[2018-10-19] MEDS: CEFAZOLIN SODIUM 2 GM in DEXTROSE 5%-WATER 100 ML IV SCH (21:56)
[2018-10-19] MEDS: ATORVASTATIN CALCIUM 80 MG TABLET PO SCH (21:56)
[2018-10-20 04:37] LABS: ABSOLUTE LYMPHOCYTES (AUTO) 0.5 10^3/uL (0.5-4.7); ABSOLUTE MONOCYTES (AUTO) 0.3 10^3/uL (0.1-1.4); ABSOLUTE NEUT (AUTO) 6.7 10^3/uL (1.7-8.2); BASOPHILS % (AUTO) 0.2 % (0-2); HEMATOCRIT 31.6 % (36.0-47.0); HEMOGLOBIN 10.5 g/dL (12.0-15.5); LYMPHOCYTES % (AUTO) 6.2 % (13-45); MEAN CORPUSCULAR HEMOGLOBIN 30.2 pg (27.0-33.4); MEAN CORPUSCULAR HGB CONC 33.2 g/dL (32.0-36.0); MEAN CORPUSCULAR VOLUME 91 fl (80-97); MONOCYTES % (AUTO) 3.5 % (3-13); PLATELET COUNT 174 10^3/uL (150-450); RED BLOOD COUNT 3.47 10^6/uL (3.72-5.28); RED CELL DISTRIBUTION WIDTH 14.9 % (11.5-14.0); SEGMENTED NEUTROPHILS % (AUTO) 90.1 % (42-78); TOTAL CELLS COUNTED % (AUTO) 100 %; WHITE BLOOD COUNT 7.4 10^3/uL (4.0-10.5)
[2018-10-20] MEDS: 1/2 NORMAL SALINE 1,000 ML IV PRN ×2 (04:37→15:59)
[2018-10-20 05:01] LABS: ANION GAP 7 (5-19); BLOOD UREA NITROGEN 21 mg/dL (7-20); CALCIUM 8.4 mg/dL (8.4-10.2); CARBON DIOXIDE 28 mmol/L (22-30); CHLORIDE 100 mmol/L (98-107); GLUCOSE 288 mg/dL (75-110); POTASSIUM 4.6 mmol/L (3.6-5.0)
[2018-10-20] MEDS: LEVOTHYROXINE SODIUM 0.1 MG TABLET PO SCH (05:31)
[2018-10-20] MEDS: CEFAZOLIN SODIUM 2 GM in DEXTROSE 5%-WATER 100 ML IV SCH ×2 (05:33→14:23)
[2018-10-20] MEDS: INSULIN LISPRO 100 UNIT/ML 3 ML VIAL SUBCUT SCH ×4 (08:54→22:42)
[2018-10-20] MEDS: INSULIN GLARGINE,HUM.REC.ANLOG 1,000 UNIT/10 ML VIAL SUBCUT SCH (08:55)
[2018-10-20] MEDS: MORPHINE SULFATE 10 MG/ML INJ IV PRN ×2 (08:55→17:05)
--- NOTE | 2018-10-20 10:20 | PDOC PROGRESS REPORT ---
Subjective Progress Note for:: 10/20/18 Subjective:: Patient seems to be doing better this morning, mentating better, pain is better post surgery Reason For Visit: FRACTURE RIGHT HIP Physical Exam Vital Signs: Temp Pulse Resp BP Pulse Ox 97.7 F 68 18 140/45 H 97 10/20/18 07:00 10/20/18 07:00 10/20/18 07:00 10/20/18 07:00 10/20/18 07:00 Intake & Output 10/19/18 10/20/18 10/21/18 06:59 06:59 06:59 Intake Total 1250 3450 Output Total 1250 1050 Balance 0 2400 Weight 62.1 kg 62.1 kg General appearance: PRESENT: no acute distress, well-developed, well-nourished Head exam: PRESENT: atraumatic, normocephalic Eye exam: PRESENT: conjunctiva pink, EOMI, PERRLA. ABSENT: scleral icterus Ear exam: PRESENT: normal external ear exam Mouth exam: PRESENT: moist, tongue midline Neck exam: ABSENT: carotid bruit, JVD, lymphadenopathy, thyromegaly Respiratory exam: PRESENT: clear to auscultation dinora. ABSENT: rales, rhonchi, wheezes Cardiovascular exam: PRESENT: RRR. ABSENT: diastolic murmur, rubs, systolic murmur Pulses: PRESENT: normal dorsalis pedis pul Vascular exam: PRESENT: normal capillary refill GI/Abdominal exam: PRESENT: normal bowel sounds, soft. ABSENT: distended, guarding, mass, organolmegaly, rebound, tenderness Rectal exam: PRESENT: deferred Extremities exam: PRESENT: full ROM. ABSENT: calf tenderness, clubbing, pedal edema Neurological exam: PRESENT: alert, awake, oriented to person, oriented to place, oriented to time, oriented to situation, CN II-XII grossly intact. ABSENT: motor sensory deficit Psychiatric exam: PRESENT: appropriate affect, normal mood. ABSENT: homicidal ideation, suicidal ideation Skin exam: PRESENT: dry, intact, warm. ABSENT: cyanosis, rash Results Laboratory Results: 10/20/18 03:41 10/20/18 03:41 10/20/18 10/20/18 03:41 03:41 WBC 7.4 RBC 3.47 L Hgb 10.5 L Hct 31.6 L MCV 91 MCH 30.2 MCHC 33.2 RDW 14.9 H Plt Count 174 Seg Neutrophils % 90.1 H Lymphocytes % 6.2 L Monocytes % 3.5 Eosinophils % 0.0 Basophils % 0.2 Absolute Neutrophils 6.7 Absolute Lymphocytes 0.5 Absolute Monocytes 0.3 Absolute Eosinophils 0.0 Absolute Basophils 0.0 Sodium 135.4 L Potassium 4.6 Chloride 100 Carbon Dioxide 28 Anion Gap 7 BUN 21 H Creatinine 0.71 Est GFR ( Amer) > 60 Est GFR (Non-Af Amer) > 60 Glucose 288 H Calcium 8.4 Impressions: Chest X-Ray 10/18/18 10:35 IMPRESSION: Cardiomegaly without acute abnormality of the lungs in AP projection. Fluoroscopy 10/19/18 00:00 IMPRESSION: Intraoperative fluoroscopic images obtained. Please see operative report. Hip/Pelvis X-Ray 10/19/18 00:00 IMPRESSION: Intraoperative fluoroscopic images obtained. Please see operative report. Assessment & Plan - Diagnosis (1) Intertrochanteric fracture of right hip Qualifiers: Encounter type: subsequent encounter Fracture type: closed Fracture alignment: displaced Fracture healing: with routine healing Qualified Code(s): S72.141D - Displaced intertrochanteric fracture of right femur, subsequent encounter for closed fracture with routine healing Is this a current diagnosis for this admission?: Yes Plan: Unlikely to be related to a cancer issue, more likely related to osteoporosis. We will need to do bone density testing as an outpatient. 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 We will see patient as an outpatient and make sure she is plugged in, she may need referral to [facility] for further work-up. But she needs to recover from the fracture. (3) T-cell lymphoma Is this a current diagnosis for this admission?: Yes Plan: Remains to be in complete remission from this, not being actively treated for this, we will follow as an outpatient. - Time Time Spent with patient: 35 or more minutes
[2018-10-20] MEDS: DOCUSATE SODIUM 100 MG CAPSULE PO SCH (10:45)
[2018-10-20] MEDS: METOPROLOL TARTRATE 25 MG TABLET PO SCH ×2 (10:45→22:34)
[2018-10-20] MEDS: FAMOTIDINE 20 MG TABLET PO SCH ×2 (10:45→22:38)
[2018-10-20] MEDS: PREGABALIN 100 MG CAPSULE PO SCH ×3 (10:45→17:04)
[2018-10-20] MEDS: CITALOPRAM HYDROBROMIDE 20 MG TABLET PO SCH (10:45)
[2018-10-20] MEDS: ENOXAPARIN SODIUM INJ 30 MG/0.3 ML DISP.SYRIN SUBCUT SCH ×2 (10:45→22:43)
--- NOTE | 2018-10-20 12:03 | PDOC PROGRESS REPORT ---
Subjective Progress Note for:: 10/20/18 Subjective:: 10/19/2018 patient is seen today for follow-up medicine rounds. Patient is medically stable vital signs are stable blood pressure 139/56 temperature 98.2 pulse 81 O2 sat 95% on 1 L. Patient is on sliding scale treating her diabetes, using either Percocet or morphine for her pain. CBC and electrolytes are normal urinalysis is suspicious for UTI, culture is pending Patient is scheduled for surgical repair of fractured hip today at approximately 1300 hrs. patient appears to be medically stable now. Will follow postop. Patient taking lisinopril,metoprolol, Lyrica, Celexa, Lipitor, Lantus Synthroid May need postop antibiotics for UTI 10/20/2018 patient's blood pressures have been stable through the night, this morning 140/45, temperature 97.7, pulse 68, sats 97% on nasal cannula.. Hemoglobin preop was 11.3 postop 10.5, white count 7.4 postop, electrolytes look good sugars are slightly high in the mid 200s. I repeated the urine to see if the patient needs further antibiotics. Patient was unable to get up out of bed this morning secondary to pain, however I have encouraged her to do so with the help of pain medication Reason For Visit: FRACTURE RIGHT HIP Physical Exam Vital Signs: Temp Pulse Resp BP Pulse Ox 97.7 F 68 18 140/45 H 97 10/20/18 07:00 10/20/18 07:00 10/20/18 07:00 10/20/18 07:00 10/20/18 07:00 Intake & Output 10/19/18 10/20/18 10/21/18 06:59 06:59 06:59 Intake Total 1250 3450 Output Total 1250 1050 Balance 0 2400 Weight 62.1 kg 62.1 kg General appearance: PRESENT: no acute distress, well-developed, well-nourished Respiratory exam: PRESENT: clear to auscultation dinora. ABSENT: rales, rhonchi, wheezes Cardiovascular exam: PRESENT: RRR. ABSENT: diastolic murmur, rubs, systolic murmur Psychiatric exam: PRESENT: appropriate affect, normal mood. ABSENT: homicidal ideation, suicidal ideation Skin exam: PRESENT: other - Postop wound is clean and dry Results Laboratory Results: 10/20/18 03:41 10/20/18 03:41 10/20/18 10/20/18 03:41 03:41 WBC 7.4 RBC 3.47 L Hgb 10.5 L Hct 31.6 L MCV 91 MCH 30.2 MCHC 33.2 RDW 14.9 H Plt Count 174 Seg Neutrophils % 90.1 H Lymphocytes % 6.2 L Monocytes % 3.5 Eosinophils % 0.0 Basophils % 0.2 Absolute Neutrophils 6.7 Absolute Lymphocytes 0.5 Absolute Monocytes 0.3 Absolute Eosinophils 0.0 Absolute Basophils 0.0 Sodium 135.4 L Potassium 4.6 Chloride 100 Carbon Dioxide 28 Anion Gap 7 BUN 21 H Creatinine 0.71 Est GFR ( Amer) > 60 Est GFR (Non-Af Amer) > 60 Glucose 288 H Calcium 8.4 10/18/18 11:05 Catheterized Urine Urine Culture - Final NO GROWTH 2 DAYS Impressions: Chest X-Ray 10/18/18 10:35 IMPRESSION: Cardiomegaly without acute abnormality of the lungs in AP projection. Fluoroscopy 10/19/18 00:00 IMPRESSION: Intraoperative fluoroscopic images obtained. Please see operative report. Hip/Pelvis X-Ray 10/19/18 00:00 IMPRESSION: Intraoperative fluoroscopic images obtained. Please see operative report. Assessment and Plan - Diagnosis (1) Hypertension Is this a current diagnosis for this admission?: Yes Plan: 10/18/2018 patient takes lisinopril 5 mg daily Lopressor 25 mg daily for h ypertension, 10/19/2018 pressures under good control averaging around 140/60 10/20/2017 well-controlled on medication (2) Diabetes mellitus type 1 Qualifiers: Is this a current diagnosis for this admission?: Yes Plan: 10/18/2018 patient takes insulin glargine 4 units subcu nightly and 12 units subcu every morning she uses aspart or NovoLog sliding scale 10/19/2018 sugars are running anywhere from around 230-300 and covered with a sliding scale 10/20/2018 continue sliding scale (3) Hyperlipidemia Is this a current diagnosis for this admission?: Yes Plan: 10/18/2018 patient takes Lipitor 80 mg nightly 10-19-18 patient stable 10/20/18 continue Lipitor nightly (4) Hypothyroid Is this a current diagnosis for this admission?: Yes Plan: 10/18/2017 patient takes Synthroid 0.1 mg every morning 10/19/2018 we will check a TSH today or tomorrow 10/20/2018 will order TSH today (5) T-cell lymphoma Is this a current diagnosis for this admission?: Yes Plan: 10/18/2018 patient was diagnosed with T-cell lymphoma 6 years ago. Patient jorge alberto chavez has had a recurrence of her lymphoma and her colon. 10/19/2018 patient is being followed by oncology Dr. Rosa, he stated that she will need prophylactic treatment for DVT following orthopedic surgery and will coordinate this with orthopedics to the timing postop. Obviously bleeding posto p is a concern 10/20/2018 oncology has seen the patient will follow the patient as an outpatient starting further treatments. - Time Time Spent with patient: 25-34 minutes
[2018-10-20 12:08] LABS: APPEARANCE,URINE SLIGHTLY-CLOUDY; BILIRUBIN,URINE NEGATIVE (NEGATIVE); COLOR,URINE YELLOW; GLUCOSE, URINE >=500 mg/dL (NEGATIVE); KETONES,URINE TRACE mg/dL (NEGATIVE); LEUKOCYTE ESTERASE,URINE LARGE (NEGATIVE); NITRITE,URINE NEGATIVE (NEGATIVE); PROTEIN,URINE 100 mg/dL (NEGATIVE); URINE SPECIFIC GRAVITY 1.018; UROBILINOGEN,URINE NEGATIVE mg/dL (<2.0)
[2018-10-20] MEDS: OXYCODONE-ACETAMINOPHEN 5-325 MG TABLET PO PRN ×2 (14:23→20:01)
[2018-10-20] MEDS: LISINOPRIL 5 MG TABLET PO SCH (22:34)
[2018-10-20] MEDS: ATORVASTATIN CALCIUM 80 MG TABLET PO SCH (22:38)
[2018-10-21] MEDS: 1/2 NORMAL SALINE 1,000 ML IV PRN (02:21)
[2018-10-21 04:40] LABS: ABSOLUTE LYMPHOCYTES (AUTO) 0.8 10^3/uL (0.5-4.7); ABSOLUTE MONOCYTES (AUTO) 1.2 10^3/uL (0.1-1.4); ABSOLUTE NEUT (AUTO) 7.9 10^3/uL (1.7-8.2); BASOPHILS % (AUTO) 0.5 % (0-2); HEMATOCRIT 28.8 % (36.0-47.0); HEMOGLOBIN 9.6 g/dL (12.0-15.5); LYMPHOCYTES % (AUTO) 7.9 % (13-45); MEAN CORPUSCULAR HEMOGLOBIN 30.6 pg (27.0-33.4); MEAN CORPUSCULAR HGB CONC 33.4 g/dL (32.0-36.0); MEAN CORPUSCULAR VOLUME 92 fl (80-97); MONOCYTES % (AUTO) 11.8 % (3-13); PLATELET COUNT 197 10^3/uL (150-450); RED BLOOD COUNT 3.14 10^6/uL (3.72-5.28); SEGMENTED NEUTROPHILS % (AUTO) 79.8 % (42-78); TOTAL CELLS COUNTED % (AUTO) 100 %; WHITE BLOOD COUNT 9.9 10^3/uL (4.0-10.5)
[2018-10-21 04:54] LABS: ANION GAP 6 (5-19); BLOOD UREA NITROGEN 33 mg/dL (7-20); CALCIUM 8.1 mg/dL (8.4-10.2); CARBON DIOXIDE 26 mmol/L (22-30); CHLORIDE 100 mmol/L (98-107); GLUCOSE 277 mg/dL (75-110); POTASSIUM 4.6 mmol/L (3.6-5.0)
[2018-10-21] MEDS: LEVOTHYROXINE SODIUM 0.1 MG TABLET PO SCH (06:07)
[2018-10-21] MEDS: OXYCODONE-ACETAMINOPHEN 5-325 MG TABLET PO PRN ×3 (06:10→21:34)
[2018-10-21] MEDS: INSULIN LISPRO 100 UNIT/ML 3 ML VIAL SUBCUT SCH ×5 (07:39→21:26)
[2018-10-21] MEDS: INSULIN GLARGINE,HUM.REC.ANLOG 1,000 UNIT/10 ML VIAL SUBCUT SCH ×2 (07:40→14:27)
[2018-10-21] MEDS: PREGABALIN 100 MG CAPSULE PO SCH ×3 (10:33→17:15)
[2018-10-21] MEDS: CITALOPRAM HYDROBROMIDE 20 MG TABLET PO SCH (10:34)
[2018-10-21] MEDS: FAMOTIDINE 20 MG TABLET PO SCH ×2 (10:34→21:26)
[2018-10-21] MEDS: METOPROLOL TARTRATE 25 MG TABLET PO SCH ×2 (10:34→21:26)
[2018-10-21] MEDS: ENOXAPARIN SODIUM INJ 30 MG/0.3 ML DISP.SYRIN SUBCUT SCH ×2 (10:34→21:27)
[2018-10-21] MEDS: DOCUSATE SODIUM 100 MG CAPSULE PO SCH (10:34)
[2018-10-21] MEDS: MORPHINE SULFATE 10 MG/ML INJ IV PRN ×2 (11:01→16:08)
--- NOTE | 2018-10-21 11:05 | PDOC PROGRESS REPORT ---
Subjective Progress Note for:: 10/21/18 Subjective:: 10/19/2018 patient is seen today for follow-up medicine rounds. Patient is medically stable vital signs are stable blood pressure 139/56 temperature 98.2 pulse 81 O2 sat 95% on 1 L. Patient is on sliding scale treating her diabetes, using either Percocet or morphine for her pain. CBC and electrolytes are normal urinalysis is suspicious for UTI, culture is pending Patient is scheduled for surgical repair of fractured hip today at approximately 1300 hrs. patient appears to be medically stable now. Will follow postop. Patient taking lisinopril,metoprolol, Lyrica, Celexa, Lipitor, Lantus Synthroid May need postop antibiotics for UTI 10/20/2018 patient's blood pressures have been stable through the night, this morning 140/45, temperature 97.7, pulse 68, sats 97% on nasal cannula.. Hemoglobin preop was 11.3 postop 10.5, white count 7.4 postop, electrolytes look good sugars are slightly high in the mid 200s. I repeated the urine to see if the patient needs further antibiotics. Patient was unable to get up out of bed this morning secondary to pain, however I have encouraged her to do so with the help of pain medication 10/21/2018 patient's blood pressures remained stable 144/52, she is afebrile 97 5 pulse of 67 O2 sat 99% on room air. Patient is still not getting up out of bed due to pain of instructed the nurse that we will get a try pain medication and then 15 to 30 minutes later with PTs help get her up out of bed. Her blood sugars are still running little high I am going increase her Lantus to 16 units in the morning otherwise she is stable Urine yesterday showed a large amount of leukocytes but negative nitrates, also a large amount of blood she does have a Peña catheter. Culture however on 10/18/2018 showed no growth from going to repeat the culture today Reason For Visit: FRACTURE RIGHT HIP Physical Exam Vital Signs: Temp Pulse Resp BP Pulse Ox 97.5 F 67 16 144/52 H 99 10/21/18 07:40 10/21/18 07:40 10/21/18 07:40 10/21/18 07:40 10/21/18 07:40 Intake & Output 10/20/18 10/21/18 10/22/18 06:59 06:59 06:59 Intake Total 3450 2580 Output Total 1050 1250 Balance 2400 1330 Weight 62.1 kg 67.8 kg General appearance: PRESENT: no acute distress, other - Does not voices no concern other than pain with trying to get up Respiratory exam: PRESENT: clear to auscultation dinora. ABSENT: rales, rhonchi, wheezes Cardiovascular exam: PRESENT: RRR. ABSENT: diastolic murmur, rubs, systolic murmur GI/Abdominal exam: PRESENT: normal bowel sounds, soft. ABSENT: distended, guarding, mass, organolmegaly, rebound, tenderness Neurological exam: PRESENT: alert, awake, oriented to person, oriented to place, oriented to time, oriented to situation, CN II-XII grossly intact. ABSENT: motor sensory deficit Psychiatric exam: PRESENT: appropriate affect, normal mood. ABSENT: homicidal ideation, suicidal ideation Results Laboratory Results: 10/21/18 03:34 10/21/18 03:34 10/20/18 10/21/18 10/21/18 11:23 03:34 03:34 WBC 9.9 RBC 3.14 L Hgb 9.6 L Hct 28.8 L MCV 92 MCH 30.6 MCHC 33.4 RDW 15.0 H Plt Count 197 Seg Neutrophils % 79.8 H Lymphocytes % 7.9 L Monocytes % 11.8 Eosinophils % 0.0 Basophils % 0.5 Absolute Neutrophils 7.9 Absolute Lymphocytes 0.8 Absolute Monocytes 1.2 Absolute Eosinophils 0.0 Absolute Basophils 0.0 Sodium 131.8 L Potassium 4.6 Chloride 100 Carbon Dioxide 26 Anion Gap 6 BUN 33 H Creatinine 0.81 Est GFR ( Amer) > 60 Est GFR (Non-Af Amer) > 60 Glucose 277 H Calcium 8.1 L Urine Color YELLOW Urine Appearance SLIGHTLY-CLOUDY Urine pH 6.0 Ur Specific [place] 1.018 Urine Protein 100 H Urine Glucose (UA) >=500 H Urine Ketones TRACE H Urine Blood LARGE H Urine Nitrite NEGATIVE Ur Leukocyte Esterase LARGE H Urine WBC (Auto) 159 Urine RBC (Auto) 119 10/18/18 11:05 Catheterized Urine Urine Culture - Final NO GROWTH 2 DAYS Impressions: Chest X-Ray 10/18/18 10:35 IMPRESSION: Cardiomegaly without acute abnormality of the lungs in AP projection. Fluoroscopy 10/19/18 00:00 IMPRESSION: Intraoperative fluoroscopic images obtained. Please see operative report. Hip/Pelvis X-Ray 10/19/18 00:00 IMPRESSION: Intraoperative fluoroscopic images obtained. Please see operative report. Assessment and Plan - Diagnosis (1) Hypertension Is this a current diagnosis for this admission?: Yes Plan: 10/18/2018 patient takes lisinopril 5 mg daily Lopressor 25 mg daily for hypertension, 10/19/2018 pressures under good control averaging around 140/60 10/20/2018 well-controlled on medication 10/21/2018. Blood pressures are acceptable at this level, will not change her medications (2) Diabetes mellitus type 1 Qualifiers: Is this a current diagnosis for this admission?: Yes Plan: 10/18/2018 patient takes insulin glargine 4 units subcu nightly and 12 units subcu every morning she uses aspart or NovoLog sliding scale 10/19/2018 sugars are running anywhere from around 230-300 and covered with a sliding scale 10/20/2018 continue sliding scale 10/21/2018 sugars are still running high we will increase her Lantus to 16 units every morning (3) Hyperlipidemia Is this a current diagnosis for this admission?: Yes Plan: 10/18/2018 patient takes Lipitor 80 mg nightly 10-19-18 patient stable 10/20/18 continue Lipitor nightly 10/21/2018 check a lipid profile in the morning (4) Hypothyroid Is this a current diagnosis for this admission?: Yes Plan: 10/18/2017 patient takes Synthroid 0.1 mg every morning 10/19/2018 we will check a TSH today or tomorrow 10/20/2018 will order TSH today 10/21/2018 will add a TSH to lipid profile in a.m. (5) T-cell lymphoma Is this a current diagnosis for this admission?: Yes Plan: 10/18/2018 patient was diagnosed with T-cell lymphoma 6 years ago. Patient recently has had a recurrence of her lymphoma and her colon. 10/19/2018 patient is being followed by oncology Dr. Rosa, he stated that she will need prophylactic treatment for DVT following orthopedic surgery and will coordinate this with orthopedics to the timing postop. Obviously bleeding postop is a concern 10/20/2018 oncology has seen the patient will follow the patient as an outpatient starting further treatments. 10/21/2018 appreciate oncology following patient with us - Time Time Spent with patient: 25-34 minutes
[2018-10-21] MEDS ORDERED: 1/2 NORMAL SALINE 1,000 ML IV PRN (13:00)
--- NOTE | 2018-10-21 14:42 | PDOC PROGRESS REPORT ---
Subjective Progress Note for:: 10/21/18 Subjective:: The patient is resting comfortably accompanied by her family. The patient was out of bed today to a standing position. She relates that her pain is significantly improved compared with prior to surgery. Reason For Visit: FRACTURE RIGHT HIP Postoperative day #2 status post intramedullary nail fixation of a displaced right hip intertrochanteric fracture. Physical Exam Vital Signs: Temp Pulse Resp BP Pulse Ox 97.5 F 71 16 144/58 H 99 10/21/18 07:40 10/21/18 11:48 10/21/18 11:48 10/21/18 11:48 10/21/18 11:48 Intake & Output 10/20/18 10/21/18 10/22/18 06:59 06:59 06:59 Intake Total 3450 2580 450 Output Total 1050 1250 525 Balance 2400 1330 -75 Weight 62.1 kg 67.8 kg General appearance: PRESENT: no acute distress Head exam: PRESENT: atraumatic Eye exam: PRESENT: conjunctiva pink, EOMI, PERRLA. ABSENT: scleral icterus Mouth exam: PRESENT: moist, tongue midline Neck exam: PRESENT: full ROM Respiratory exam: PRESENT: clear to auscultation dinora. ABSENT: rales, rhonchi, wheezes Pulses: PRESENT: +2 pedal pulses bilateral Musculoskeletal exam: PRESENT: other - The surgical dressings are intact. There is slight drainage noted underneath the proximal surgical incision. There is no evidence of infection. The patient is able to dorsiflex and plantarflex the foot. There is good passive motion of the hip without pain. Psychiatric exam: PRESENT: appropriate affect, normal mood. ABSENT: homicidal ideation, suicidal ideation Results Laboratory Results: 10/21/18 03:34 10/21/18 03:34 10/21/18 10/21/18 03:34 03:34 WBC 9.9 RBC 3.14 L Hgb 9.6 L Hct 28.8 L MCV 92 MCH 30.6 MCHC 33.4 RDW 15.0 H Plt Count 197 Seg Neutrophils % 79.8 H Lymphocytes % 7.9 L Monocytes % 11.8 Eosinophils % 0.0 Basophils % 0.5 Absolute Neutrophils 7.9 Absolute Lymphocytes 0.8 Absolute Monocytes 1.2 Absolute Eosinophils 0.0 Absolute Basophils 0.0 Sodium 131.8 L Potassium 4.6 Chloride 100 Carbon Dioxide 26 Anion Gap 6 BUN 33 H Creatinine 0.81 Est GFR ( Amer) > 60 Est GFR (Non-Af Amer) > 60 Glucose 277 H Calcium 8.1 L 10/18/18 11:05 Catheterized Urine Urine Culture - Final NO GROWTH 2 DAYS Impressions: Chest X-Ray 10/18/18 10:35 IMPRESSION: Cardiomegaly without acute abnormality of the lungs in AP projection. Fluoroscopy 10/19/18 00:00 IMPRESSION: Intraoperative fluoroscopic images obtained. Please see operative report. Hip/Pelvis X-Ray 10/19/18 00:00 IMPRESSION: Intraoperative fluoroscopic images obtained. Please see operative report. Assessment & Plan - Diagnosis (1) Intertrochanteric fracture of right hip Qualifiers: Encounter type: subsequent encounter Fracture type: closed Fracture alignment: displaced Fracture healing: with routine healing Qualified Code(s): S72.141D - Displaced intertrochanteric fracture of right femur, subsequent encounter for closed fracture with routine healing Is this a current diagnosis for this admission?: Yes - Time Time Spent with patient: 35 or more minutes - I had a thorough discussion with the family regarding the fracture, operative fixation, and anticipated recovery. Discussed my recommendations for inpatient rehabilitation. We discussed postoperative care including removal of marcela, ambulation, and time she will return to normal function. - Plan Summary Plan Summary: Postoperative day #2 status post intramedullary nail for fixation of displaced intertrochanteric fracture. #1. Physical therapy for ambulation training: Weightbearing as tolerated with assist device. #2. DVT prophylaxis: Patient is at high risk for deep venous thrombosis given recent orthopedic surgery as well as cancer diagnosis. Patient is currently on Lovenox. Would continue Lovenox when discharged to retirement facility. #3. Acute blood loss anemia: Hemoglobin is stable and patient is asymptomatic. #4. Patient is stable from orthopedic standpoint. Patient may be discharged to retirement facility when stable from medical standpoint. Patient should follow-up in my office within 2 weeks following discharge for wound evaluation and removal of operative marcela.
[2018-10-21] MEDS: ONDANSETRON HCL INJ/PF 4 MG/2 ML SDV IV PRN (16:16)
[2018-10-21] MEDS: LISINOPRIL 5 MG TABLET PO SCH (21:26)
[2018-10-21] MEDS: ATORVASTATIN CALCIUM 80 MG TABLET PO SCH (21:26)
[2018-10-22 05:33] LABS: CHOLESTEROL 94.94 mg/dL (0-200); TRIGLYCERIDES 91 mg/dL (<150)
[2018-10-22 05:44] LABS: DIRECT LDL 65 mg/dL (<100)
[2018-10-22] MEDS: LEVOTHYROXINE SODIUM 0.1 MG TABLET PO SCH (05:45)
[2018-10-22] MEDS: INSULIN LISPRO 100 UNIT/ML 3 ML VIAL SUBCUT SCH ×4 (08:11→21:46)
[2018-10-22] MEDS: OXYCODONE-ACETAMINOPHEN 5-325 MG TABLET PO PRN ×3 (08:11→19:49)
[2018-10-22] MEDS: INSULIN GLARGINE,HUM.REC.ANLOG 1,000 UNIT/10 ML VIAL SUBCUT SCH (08:12)
--- NOTE | 2018-10-22 08:27 | PDOC PROGRESS REPORT ---
Subjective Progress Note for:: 10/22/18 Subjective:: Seems better today, stood w/ PT yesterday Reason For Visit: FRACTURE RIGHT HIP Physical Exam Vital Signs: Temp Pulse Resp BP Pulse Ox 97.9 F 65 16 135/43 H 100 10/21/18 23:30 10/21/18 23:30 10/21/18 23:30 10/21/18 23:30 10/22/18 01:24 Intake & Output 10/21/18 10/22/18 10/23/18 06:59 06:59 06:59 Intake Total 2580 2030 Output Total 1250 1125 Balance 1330 905 Weight 67.8 kg 67.8 kg General appearance: PRESENT: no acute distress, well-developed, well-nourished Head exam: PRESENT: atraumatic, normocephalic Eye exam: PRESENT: conjunctiva pink, EOMI, PERRLA. ABSENT: scleral icterus Ear exam: PRESENT: normal external ear exam Mouth exam: PRESENT: moist, tongue midline Neck exam: ABSENT: carotid bruit, JVD, lymphadenopathy, thyromegaly Respiratory exam: PRESENT: clear to auscultation dinora. ABSENT: rales, rhonchi, wheezes Cardiovascular exam: PRESENT: RRR. ABSENT: diastolic murmur, rubs, systolic murmur Pulses: PRESENT: normal dorsalis pedis pul Vascular exam: PRESENT: normal capillary refill GI/Abdominal exam: PRESENT: normal bowel sounds, soft. ABSENT: distended, guarding, mass, organolmegaly, rebound, tenderness Rectal exam: PRESENT: deferred Extremities exam: PRESENT: full ROM. ABSENT: calf tenderness, clubbing, pedal edema Neurological exam: PRESENT: alert, awake, oriented to person, oriented to place, oriented to time, oriented to situation, CN II-XII grossly intact. ABSENT: motor sensory deficit Psychiatric exam: PRESENT: appropriate affect, normal mood. ABSENT: homicidal ideation, suicidal ideation Skin exam: PRESENT: dry, intact, warm. ABSENT: cyanosis, rash Results Laboratory Results: 10/21/18 03:34 10/21/18 03:34 10/22/18 10/22/18 04:31 04:31 Triglycerides 91 Cholesterol 94.94 LDL Cholesterol Direct 65 VLDL Cholesterol 18.0 HDL Cholesterol 33 L TSH 3.96 Impressions: Chest X-Ray 10/18/18 10:35 IMPRESSION: Cardiomegaly without acute abnormality of the lungs in AP p rojection. Fluoroscopy 10/19/18 00:00 IMPRESSION: Intraoperative fluoroscopic images obtained. Please see operative report. Hip/Pelvis X-Ray 10/19/18 00:00 IMPRESSION: Intraoperative fluoroscopic images obtained. Please see operative report. Assessment & Plan - Diagnosis (1) Intertrochanteric fracture of right hip Qualifiers: Encounter type: subsequent encounter Fracture type: closed Fracture alignment: displaced Fracture healing: with routine healing Qualified Code(s): S72.141D - Displaced intertrochanteric fracture of right femur, s ubsequent encounter for closed fracture with routine healing Is this a current diagnosis for this admission?: Yes Plan: Improving, planned for rehab soon hopefully (2) Cancer of right kidney Is this a current diagnosis for this admission?: Yes Plan: Will need to readdress this as outpt, she has appt w/ me in 2-3 wk so I will take this forward at that time (3) T-cell lymphoma Is this a current diagnosis for this admission?: Yes Plan: No evidence of disease, remains in remission.
[2018-10-22] MEDS: DOCUSATE SODIUM 100 MG CAPSULE PO SCH (09:54)
[2018-10-22] MEDS: PREGABALIN 100 MG CAPSULE PO SCH ×3 (09:54→17:11)
[2018-10-22] MEDS: METOPROLOL TARTRATE 25 MG TABLET PO SCH ×2 (09:54→21:45)
[2018-10-22] MEDS: CITALOPRAM HYDROBROMIDE 20 MG TABLET PO SCH (09:54)
[2018-10-22] MEDS: FAMOTIDINE 20 MG TABLET PO SCH ×2 (09:54→21:45)
[2018-10-22] MEDS: ENOXAPARIN SODIUM INJ 30 MG/0.3 ML DISP.SYRIN SUBCUT SCH ×2 (09:55→21:46)
--- NOTE | 2018-10-22 11:06 | PDOC PROGRESS REPORT ---
Subjective Progress Note for:: 10/22/18 Subjective:: 10/19/2018 patient is seen today for follow-up medicine rounds. Patient is medically stable vital signs are stable blood pressure 139/56 temperature 98.2 pulse 81 O2 sat 95% on 1 L. Patient is on sliding scale treating her diabetes, using either Percocet or morphine for her pain. CBC and electrolytes are normal urinalysis is suspicious for UTI, culture is pending Patient is scheduled for surgical repair of fractured hip today at approximately 1300 hrs. patient appears to be medically stable now. Will follow postop. Patient taking lisinopril,metoprolol, Lyrica, Celexa, Lipitor, Lantus Synthroid May need postop antibiotics for UTI 10/20/2018 patient's blood pressures have been stable through the night, this morning 140/45, temperature 97.7, pulse 68, sats 97% on nasal cannula.. Hemoglobin preop was 11.3 postop 10.5, white count 7.4 postop, electrolytes look good sugars are slightly high in the mid 200s. I repeated the urine to see if the patient needs further antibiotics. Patient was unable to get up out of bed this morning secondary to pain, however I have encouraged her to do so with the help of pain medication 10/21/2018 patient's blood pressures remained stable 144/52, she is afebrile 97 5 pulse of 67 O2 sat 99% on room air. Patient is still not getting up out of bed due to pain of instructed the nurse that we will get a try pain medication and then 15 to 30 minutes later with PTs help get her up out of bed. Her blood sugars are still running little high I am going increase her Lantus to 16 units in the morning otherwise she is stable Urine yesterday showed a large amount of leukocytes but negative nitrates, also a large amount of blood she does have a Peña catheter. Culture however on 10/18/2018 showed no growth from going to repeat the culture today 10/22/2018 patient was admitted to the hospital with a left hip fracture. We were asked to see the patient for medical follow-up. Patient has hypertension and diabetes as her 2 primary medical problems She remains hemodynamically stable. Physical therapy is working with her and they have recommended long-term facility she is very slow to ambulate though she did get out of bed yesterday. Orthopedic surgery has released her from their care and she can be discharged when she is medically stable. I think patient will be able to be discharged around Monday. Patient is still using morphine for pain we will add Percocet as needed BUN and creatinine are going up slightly patient needs to drink more, will increase her fluids to 125 an hour. Reason For Visit: FRACTURE RIGHT HIP Physical Exam Vital Signs: Temp Pulse Resp BP Pulse Ox 98.5 F 73 13 152/55 H 98 10/22/18 07:58 10/22/18 07:58 10/22/18 07:58 10/22/18 07:58 10/22/18 07:58 Intake & Output 10/21/18 10/22/18 10/23/18 06:59 06:59 06:59 Intake Total 2580 2030 Output Total 1250 1125 Balance 1330 905 Weight 67.8 kg 67.8 kg General appearance: PRESENT: mild distress Respiratory exam: PRESENT: clear to auscultation dinora. ABSENT: rales, rhonchi, wheezes Cardiovascular exam: PRESENT: RRR. ABSENT: diastolic murmur, rubs, systolic murmur Musculoskeletal exam: PRESENT: other - Patient has a hard time ambulating due to pain, but she is trying. PT is recommended long-term discharge Neurological exam: PRESENT: alert Psychiatric exam: PRESENT: appropriate affect, normal mood. ABSENT: homicidal ideation, suicidal ideation Results Laboratory Results: 10/21/18 03:34 10/21/18 03:34 10/22/18 10/22/18 04:31 04:31 Triglycerides 91 Cholesterol 94.94 LDL Cholesterol Direct 65 VLDL Cholesterol 18.0 HDL Cholesterol 33 L TSH 3.96 Impressions: Chest X-Ray 10/18/18 10:35 IMPRESSION: Cardiomegaly without acute abnormality of the lungs in AP projection. Fluoroscopy 10/19/18 00:00 IMPRESSION: Intraoperative fluoroscopic images obtained. Please see operative report. Hip/Pelvis X-Ray 10/19/18 00:00 IMPRESSION: Intraoperative fluoroscopic images obtained. Please see operative report. Assessment and Plan - Diagnosis (1) Hypertension Is this a current diagnosis for this admission?: Yes Plan: 10/18/2018 patient takes lisinopril 5 mg daily Lopressor 25 mg daily for hypertension, 10/19/2018 pressures under good control averaging around 140/60 10/20/2018 well-controlled on medication 10/21/2018. Blood pressures are acceptable at this level, will not change her medications 10/22/2018 blood pressure is up just a little bit but I think that has to do with pain. Will not make any changes to her medications yet (2) Diabetes mellitus type 1 Qualifiers: Is this a current diagnosis for this admission?: Yes Plan: 10/18/2018 patient takes insulin glargine 4 units subcu nightly and 12 units subcu every morning she uses aspart or NovoLog sliding scale 10/19/2018 sugars are running anywhere from around 230-300 and covered with a sliding scale 10/20/2018 continue sliding scale 10/21/2018 sugars are still running high we will increase her Lantus to 16 units every morning 10/22/2018 blood sugars are still running little high but the change in the Lantus dose has not had a chance to take effect yet may need to go up on the Lantus even more tomorrow (3) Hyperlipidemia Is this a current diagnosis for this admission?: Yes Plan: 10/18/2018 patient takes Lipitor 80 mg nightly 10-19-18 patient stable 10/20/18 continue Lipitor nightly 10/21/2018 check a lipid profile in the morning (4) Hypothyroid Is this a current diagnosis for this admission?: Yes Plan: 10/18/2017 patient takes Synthroid 0.1 mg every morning 10/19/2018 we will check a TSH today or tomorrow 10/20/2018 will order TSH today 10/21/2018 will add a TSH to lipid profile in a.m. 10/22/2018 TSH is normal 3.96 lipids look okay HDL is a little low but only minimally (5) T-cell lymphoma Is this a current diagnosis for this admission?: Yes Plan: 10/18/2018 patient was diagnosed with T-cell lymphoma 6 years ago. Patient recently has had a recurrence of her lymphoma and her colon. 10/19/2018 patient is being followed by oncology Dr. Rosa, he stated that she will need prophylactic treatment for DVT following orthopedic surgery and will coordinate this with orthopedics to the timing postop. Obviously bleeding postop is a concern 10/20/2018 oncology has seen the patient will follow the patient as an outpatient starting further treatments. 10/21/2018 appreciate oncology following patient with us 10/22/2018 T-cell lymphoma is being followed with her recent surgery in [place] last week following her bladder oncology is seeing her on a regular basis and will follow-up as an outpatient - Time Time Spent with patient: 25-34 minutes
[2018-10-22] MEDS: 1/2 NORMAL SALINE 1,000 ML IV PRN ×2 (11:12→18:37)
[2018-10-22] MEDS ORDERED: INSULIN GLARGINE,HUM.REC.ANLOG 1,000 UNIT/10 ML VIAL SUBCUT SCH (13:00)
[2018-10-22] MEDS ORDERED: ONDANSETRON 4 MG TAB.RAPDIS PO PRN (15:30)
[2018-10-22] MEDS ORDERED: ONDANSETRON HCL INJ/PF 4 MG/2 ML SDV IV PRN (15:30)
[2018-10-22] MEDS ORDERED: MAGNESIUM CITRATE 296 ML BOTTLE PO PRN (17:37)
[2018-10-22] MEDS: POLYETHYLENE GLYCOL 3350 POWDER 17 GM/1 PACKET PO SCH (18:37)
[2018-10-22] MEDS: ATORVASTATIN CALCIUM 80 MG TABLET PO SCH (21:45)
[2018-10-22] MEDS: LISINOPRIL 5 MG TABLET PO SCH (21:46)
[2018-10-23] MEDS: LEVOTHYROXINE SODIUM 0.1 MG TABLET PO SCH (05:26)
[2018-10-23] MEDS: INSULIN LISPRO 100 UNIT/ML 3 ML VIAL SUBCUT SCH ×3 (07:36→17:05)
[2018-10-23] MEDS: PREGABALIN 100 MG CAPSULE PO SCH ×3 (09:41→17:05)
[2018-10-23] MEDS: CITALOPRAM HYDROBROMIDE 20 MG TABLET PO SCH (09:41)
[2018-10-23] MEDS: FAMOTIDINE 20 MG TABLET PO SCH (09:41)
[2018-10-23] MEDS: METOPROLOL TARTRATE 25 MG TABLET PO SCH (09:41)
[2018-10-23] MEDS: OXYCODONE-ACETAMINOPHEN 5-325 MG TABLET PO PRN ×2 (09:41→15:00)
[2018-10-23] MEDS: DOCUSATE SODIUM 100 MG CAPSULE PO SCH (09:42)
[2018-10-23] MEDS: INSULIN GLARGINE,HUM.REC.ANLOG 1,000 UNIT/10 ML VIAL SUBCUT SCH (09:42)
[2018-10-23] MEDS: ENOXAPARIN SODIUM INJ 30 MG/0.3 ML DISP.SYRIN SUBCUT SCH (09:43)
[2018-10-23] MEDS: POLYETHYLENE GLYCOL 3350 POWDER 17 GM/1 PACKET PO SCH (09:45)
--- NOTE | 2018-10-23 13:13 | PDOC TRANSFER SUMMARY ---
General - Admit/Disc Date/PCP Admission Date/Primary Care Provider: 10/18/18 14:01 NESS LUTZ MD Discharge Date: 10/23/18 - Discharge Diagnosis (1) Intertrochanteric fracture of right hip Is this a current diagnosis for this admission?: Yes (2) Insulin dependent diabetes mellitus Is this a current diagnosis for this admission?: Yes (3) Fall Is this a current diagnosis for this admission?: Yes (4) Diastolic CHF Is this a current diagnosis for this admission?: Yes (5) Hypothyroid Is this a current diagnosis for this admission?: Yes - Additional Information Resuscitation Status: Full Code Prescriptions: Enoxaparin Sodium [Lovenox Inj 30 mg/0.3 ml Disp.syrin] 30 mg SUBCUT Q12 27 Days #54 disp.syrin Lisinopril [Prinivil 5 mg Tablet] 10 mg PO QHS #60 tablet Oxycodone HCl/Acetaminophen [Percocet 5-325 mg Tablet] 1 tab PO Q6HP PRN #16 tablet PRN Reason: Home Medications: Aspirin [Aspirin 81 mg Chewable Tablet] 81 mg PO DAILY 09/26/16 Atorvastatin Calcium [Lipitor 80 mg Tablet] 80 mg PO QHS 09/26/16 Carboxymethylcellulose Sodium [Refresh Celluvisc Drops] 1 dropperful OU BID 09/26/16 Citalopram Hydrobromide [Celexa 20 mg Tablet] 20 mg PO DAILY 09/26/16 Ergocalciferol (Vitamin D2) [Drisdol 50,000 unit (1.25MG) Capsule] 50,000 unit PO FR@1000 09/26/16 Insulin Aspart [Novolog Flexpen] 0 unit SUBCUT .SLD SCALE 09/26/16 Insulin Glargine,Hum.rec.anlog [Lantus Solostar] 4 unit SQ QHS 09/26/16 Insulin Glargine,Hum.rec.anlog [Lantus Solostar] 12 unit SQ QAM 09/26/16 Levothyroxine Sodium [Synthroid 0.1 mg Tablet] 0.1 mg PO QAM 09/26/16 Metoprolol Tartrate [Lopressor 25 mg Tablet] 25 mg PO Q12 09/26/16 Pregabalin [Lyrica 100 mg Capsule] 100 mg PO TID 10/18/18 Sulfamethoxazole/Trimethoprim [Bactrim Ds Tablet] 1 each PO BID 10/18/18 Enoxaparin Sodium [Lovenox Inj 30 mg/0.3 ml Disp.syrin] 30 mg SUBCUT Q12 27 Days #54 disp.syrin 10/23/18 Lisinopril [Prinivil 5 mg Tablet] 10 mg PO QHS #60 tablet 10/23/18 Oxycodone HCl/Acetaminophen [Percocet 5-325 mg Tablet] 1 tab PO Q6HP PRN #16 tablet 10/23/18 History of Present Illness Admission Date/PCP: 10/18/18 14:01 NESS LUTZ MD Patient complains of: fall History of Present Illness: Admitting hospitalist's H&P: This is a 77-year-old female with a PMH of lymphoma, diastolic CHF, HTN, and IDDM who this morning around 830 got up to go the bathroom and fell fracturing her right hip. Yesterday patient had surgery in [place] for metastatic lymphoma involving the colon. She was instructed not to be up and ambulatory for 24 hours. This morning she got up to go the bathroom by herself either tripped or got weak and fell, fracturing her right hip. Per the radiologist reports she has an acute right comminuted anterior trochanteric proximal femoral fracture with mild varus angulation. We were asked to admit the patient for orthopedic surgery. Hospital Course Hospital Course: Patient was admitted for ortho intervention. She was found to have a right hip displaced intertrochanteric fracture. She underwent right hip intramedullary nail with Synthes TFN by ortho on 10/19/18. She was also seen by PT and was also evaluated by hem/onc. Patient was also started in Lovenox for VTE prophylaxis. Discussed with Dr. Wild who has recommended Lovenox for a total of 30 days for post orthopedic surgery VTE prophylaxis. She will continue her insulin regimen. Her lisinopril was increased to 10 mg daily as her blood pressures were running a little high. She will closely follow up with hem/onc and orthopedics. Physical Exam Vital Signs: Temp Pulse Resp BP Pulse Ox 98.4 F 74 17 172/62 H 94 10/22/18 19:27 10/22/18 19:27 10/22/18 19:27 10/22/18 20:00 10/22/18 19:27 Intake & Output 10/22/18 10/23/18 10/24/18 06:59 06:59 06:59 Intake Total 2030 3837 Output Total 1125 3150 Balance 905 687 Weight 149 lb 7.574 oz 147 lb 4.301 oz General appearance: PRESENT: no acute distress, well-developed, well-nourished Head exam: PRESENT: atraumatic, normocephalic Eye exam: PRESENT: conjunctiva pink, EOMI, PERRLA. ABSENT: scleral icterus Ear exam: PRESENT: normal external ear exam Mouth exam: PRESENT: moist, tongue midline Neck exam: ABSENT: carotid bruit, JVD, lymphadenopathy, thyromegaly Respiratory exam: PRESENT: clear to auscultation dinora. ABSENT: rales, rhonchi, wheezes Cardiovascular exam: PRESENT: RRR. ABSENT: diastolic murmur, rubs, systolic murmur Pulses: PRESENT: normal dorsalis pedis pul GI/Abdominal exam: PRESENT: normal bowel sounds, soft. ABSENT: distended, guarding, mass, organolmegaly, rebound, tenderness Rectal exam: PRESENT: deferred Neurological exam: PRESENT: alert, awake, oriented to person, oriented to place, oriented to time, oriented to situation, CN II-XII grossly intact. ABSENT: motor sensory deficit Results Laboratory Results: 10/21/18 03:34 10/21/18 03:34 10/20/18 11:23 Catheterized Urine Urine Culture - Final NO GROWTH 2 DAYS Impressions: Chest X-Ray 10/18/18 10:35 IMPRESSION: Cardiomegaly without acute abnormality of the lungs in AP projection. Fluoroscopy 10/19/18 00:00 IMPRESSION: Intraoperative fluoroscopic images obtained. Please see operative report. Hip/Pelvis X-Ray 10/19/18 00:00 IMPRESSION: Intraoperative fluoroscopic images obtained. Please see operative report. Qualifiers - * PATIENT BEING DISCHARGED WITH ANY OF THE FOLLOWING DIAGNOSIS: No Acute Heart Failure - Is this a Heart Failure Patient?: No LVEF < 40%?: No- if no continue to question #3 3. Anticoagulant therapy for permanect/persistent/paraoxysmal Afib or Aflutter: N/A
[2018-10-23 14:52] VITALS: BP 172/62
[2018-10-23] MEDS ORDERED: LISINOPRIL 5 MG TABLET PO SCH (22:00)
== END 2018-10-23 17:58 | DRG 481 ==
LOC: ER 09:58 → EH 14:01 → 4S 18:50 → 4N 10-20 17:44
PROVIDERS: ADMIT Internal Medicine; ATTEND Internal Medicine
PROC: 0QS606Z Reposition Right Upper Femur with Intramedullary Internal Fixation Device, Open Approach (ICD-10-PCS; principal; 2018-10-19 13:30)
DX: S72.141A Displaced intertrochanteric fracture of right femur, initial encounter for closed fracture (principal); C64.1 Malignant neoplasm of right kidney, except renal pelvis; C18.9 Malignant neoplasm of colon, unspecified; D62 Acute posthemorrhagic anemia; E03.9 Hypothyroidism, unspecified; E11.9 Type 2 diabetes mellitus without complications; E78.5 Hyperlipidemia, unspecified; W01.0XXA Fall on same level from slipping, tripping and stumbling without subsequent striking against object, initial encounter; I10 Essential (primary) hypertension; F32.9 Major depressive disorder, single episode, unspecified; Z96.642 Presence of left artificial hip joint; Y92.009 Unspecified place in unspecified non-institutional (private) residence as the place of occurrence of the external cause; Z79.4 Long term (current) use of insulin; Z79.82 Long term (current) use of aspirin; Z79.890 Hormone replacement therapy; Z79.891 Long term (current) use of opiate analgesic; Z85.72 Personal history of non-Hodgkin lymphomas; Z92.21 Personal history of antineoplastic chemotherapy; Z87.891 Personal history of nicotine dependence
CPT/HCPCS: 01230; 36415; 71045; 80048; 80061; 81001; 82962; 84443; 85025; 85610; 85730; 86850; 86900; 86901; 87086; 93005; 93010; 96365; 96375; 99285; C1769; J0690; J1100; J1650; J1815; J2250; J2270; J2405; J2704; J3010; J3490; J7060

== ENCOUNTER 2018-12-07 19:43 | Emergency (ER) | payer MEDICARE, OTHER ==
--- NOTE | 2018-12-07 20:31 | ER Document Report ---
ED General - General Chief Complaint: Accidental Overdose Stated Complaint: AMS Time Seen by Provider: 12/07/18 19:53 Primary Care Provider: KHRIS LAUGHLIN MD [Primary Care Provider] - Follow up as needed TRAVEL OUTSIDE OF THE [place] IN LAST 30 DAYS: No - HPI Notes: This is a 78-year-old female who presents today with a complaint of an accidental overdose of oxycodone. Patient is status post hip surgery. She just got home a few days ago. Family states that he accidentally messed up her medications and gave her too much of the oxycodone. She had a decreased respiratory status and became too sleepy. EMS was then called. Patient was given Narcan per EMS with great improvement in her mental status. She is now normal. She feels fine. She denies any chest pain. She denies any trouble breathing. She denies any focal neurologic complaints. - Related Data Allergies/Adverse Reactions: No Known Allergies Allergy (Verified 07/03/18 15:25) Past Medical History - Social History Smoking Status: Unknown if Ever Smoked Frequency of alcohol use: None Drug Abuse: None Family History: Reviewed & Not Pertinent - Patient is 77 years old. Patient has suicidal ideation: No Patient has homicidal ideation: No - Past Medical History Cardiac Medical History: Reports: Hx Congestive Heart Failure - diastolic dysfunction, Hx Hypercholesterolemia, Hx Hypertension - COZAAR-at bedtime Denies: Hx Atrial Fibrillation, Hx Coronary Artery Disease, Hx DVT, Hx Heart Attack, Hx Pulmonary Embolism Pulmonary Medical History: Reports: Hx Pneumonia Denies: Hx Asthma, Hx Bronchitis, Hx COPD, Hx Sleep Apnea Neurological Medical History: Denies: Hx Cerebrovascular Accident, Hx Seizures Endocrine Medical History: Reports: Hx Diabetes Mellitus Type 1, Hx Diabetes Mellitus Type 2, Hx Hypothyroidism. 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 Denies: Hx Mastectomy, Hx Open Heart Surgery, Hx Pacemaker - Immunizations Hx Diphtheria, Pertussis, Tetanus Vaccination: No Review of Systems - Review of Systems Cardiovascular: denies: Chest pain, Palpitations, Syncope, Dizziness Gastrointestinal: denies: Abdominal pain, Diarrhea, Nausea, Vomiting, Constipation Neurological/Psychological: denies: Headaches -: Yes All other systems reviewed and negative Physical Exam - Vital signs Vitals: Resp Pulse Ox 14 95 12/07/18 19:48 12/07/18 19:48 - General General appearance: Appears well, Alert - HEENT Head: Normocephalic, Atraumatic Eyes: Normal Pupils: PERRL - Respiratory Respiratory status: No respiratory distress Chest status: Nontender Breath sounds: Normal Chest palpation: Normal - Cardiovascular Rhythm: Regular Heart sounds: Normal auscultation Murmur: No - Abdominal Inspection: Normal Distension: No distension Bowel sounds: Normal Tenderness: Nontender Organomegaly: No organomegaly - Extremities General upper extremity: Normal inspection, Nontender, Normal color, Normal ROM, Normal temperature General lower extremity: Normal inspection, Edema, Normal color, Normal temperature, Other - Normal distal neurovascular exam of all extremities.. No: Ashley's sign - Neurological Neuro grossly intact: Yes Cognition: Normal Orientation: AAOx4 [place] Coma Scale Eye Opening: Spontaneous [place] Coma Scale Verbal: Oriented Tavo Coma Scale Motor: Obeys Commands Tavo Coma Scale Total: 15 Speech: Normal Motor strength normal: LUE, RUE, LLE, RLE Sensory: Normal - Psychological Associated symptoms: Normal affect, Normal mood Course - Re-evaluation Re-evalutation: 12/07/18 20:30 Clinical picture is consistent with accidental opiate overdose. Will observe patient for about 4 hours. Will check basic labs. EKG shows normal sinus rhythm at 77 bpm. Normal axis. Normal intervals. No acute injury pattern. Normal EKG. 12/07/18 22:01 Patient reevaluated. Patient is doing well. Labs reviewed. LFTs elevated. I discussed this with patient and . I am informed that they are aware and this is secondary to her cancer. Will observe for couple more hours to make sure she is okay. No current pulmonary symptoms. 12/07/18 23:21 Patient reevaluated. She is doing well. NO cardiopulmonary symptoms. 12/07/18 23:39 Patient reevaluated. Patient is doing well. No cardiopulmonary symptoms. She has been evaluated for over 4 hours from time of ingestion. No cardiopulmonary symptoms. She is stable for discharge. Counseled. Discharge instructions given. - Vital Signs Vital signs: Temp Pulse Resp BP Pulse Ox 98.5 F 79 16 144/65 H 99 12/07/18 20:04 12/07/18 20:04 12/07/18 21:01 12/07/18 21:01 12/07/18 21:01 - Laboratory Result Diagrams: 12/07/18 20:40 12/07/18 20:40 Laboratory results interpreted by me: 12/07/18 12/07/18 20:40 20:40 RDW 17.7 H Carbon Dioxide 32 H BUN 25 H Est GFR ( Amer) 55 L Est GFR (MDRD) Non-Af 45 L Glucose 177 H AST 886 H Alkaline Phosphatase 269 H Total Protein 6.2 L Albumin 3.2 L Salicylates < 1.0 L Acetaminophen < 10 L Discharge - Discharge Clinical Impression: Accidental overdose Qualifiers: Encounter type: initial encounter Qualified Code(s): T50.901A - Poisoning by unspecified drugs, medicaments and biological substances, accidental (unintentional), initial encounter Condition: Stable Disposition: HOME, SELF-CARE Instructions: Overdose (OM) Referrals: KHRIS LAUGHLIN MD [Primary Care Provider] - Follow up as needed
[2018-12-07 21:01] LABS: ABSOLUTE EOSINOPHILS # (AUTO) 0.3 10^3/uL (0.0-0.6); ABSOLUTE LYMPHOCYTES (AUTO) 0.9 10^3/uL (0.5-4.7); ABSOLUTE MONOCYTES (AUTO) 0.5 10^3/uL (0.1-1.4); BASOPHILS % (AUTO) 0.8 % (0-2); EOSINOPHILS % (AUTO) 4.8 % (0-6); HEMATOCRIT 37.8 % (36.0-47.0); HEMOGLOBIN 12.2 g/dL (12.0-15.5); LYMPHOCYTES % (AUTO) 16.2 % (13-45); MEAN CORPUSCULAR HEMOGLOBIN 31.4 pg (27.0-33.4); MEAN CORPUSCULAR HGB CONC 32.4 g/dL (32.0-36.0); MEAN CORPUSCULAR VOLUME 97 fl (80-97); MONOCYTES % (AUTO) 9.2 % (3-13); PLATELET COUNT 217 10^3/uL (150-450); RED CELL DISTRIBUTION WIDTH 17.7 % (11.5-14.0); TOTAL CELLS COUNTED % (AUTO) 100 %; WHITE BLOOD COUNT 5.7 10^3/uL (4.0-10.5)
[2018-12-07 21:25] LABS: ALBUMIN 3.2 g/dL (3.5-5.0); ALKALINE PHOSPHATASE 269 U/L (38-126); BILIRUBIN,DIRECT 0.2 mg/dL (0.0-0.4); BILIRUBIN,TOTAL 0.4 mg/dL (0.2-1.3); BLOOD UREA NITROGEN 25 mg/dL (7-20); CALCIUM 8.5 mg/dL (8.4-10.2); GLUCOSE 177 mg/dL (75-110); POTASSIUM 4.1 mmol/L (3.6-5.0); TOTAL PROTEIN 6.2 g/dL (6.3-8.2)
[2018-12-07 21:30] LABS: ANION GAP 7 (5-19); CARBON DIOXIDE 32 mmol/L (22-30); CHLORIDE 102 mmol/L (98-107)
[2018-12-07 21:31] LABS: ACETAMINOPHEN < 10 ug/mL (10-30); SALICYLATE < 1.0 mg/dL (2.0-20.0)
[2018-12-07 21:32] LABS: ASPARTATE AMINO TRANSFERASE 886 U/L (14-36)
[2018-12-08 00:52] VITALS: BP 167/59
--- NOTE | 2018-12-08 09:13 | EKG REPORT ---
SEVERITY:- NORMAL ECG - SINUS RHYTHM : Confirmed by: Shawnee Kurtz 08-Dec-2018 09:12:50
== END 2018-12-08 00:52 | disposition home or self-care (01) ==
LOC: ER 19:43
DX: R41.82 Altered mental status, unspecified (principal); T40.601A Poisoning by unspecified narcotics, accidental (unintentional), initial encounter; X58.XXXA Exposure to other specified factors, initial encounter; I50.9 Heart failure, unspecified; E78.00 Pure hypercholesterolemia, unspecified; I11.0 Hypertensive heart disease with heart failure; E11.9 Type 2 diabetes mellitus without complications; Z90.710 Acquired absence of both cervix and uterus
CPT/HCPCS: 36415; 80053; 80307; 82962; 85025; 93005; 93010; 99284

== ENCOUNTER → 2018-12-16 | Outpatient (CLI) | payer MEDICARE, OTHER ==
--- NOTE | 2018-12-18 16:18 | RADIOLOGY REPORT (SQ) ---
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 RADIONUCLIDE AND DOSE: 11.09 mCi F18 FDG The route of agent administration: Intravenous FASTING BLOOD SUGAR: 194 mg/dl CONTRAST TYPE AND DOSE: No CT contrast given. TECHNIQUE: Blood glucose level was verified. Above dose of FDG was injected intravenously. 2-D seg mented attenuation correction images were obtained from the base of the skull to the midthighs. Nonc ontrast CT images were obtained for attenuation correction and fusion with emission images. CT image s were performed without oral or intravenous contrast and are not sensitive for parenchymal lesions. A series of overlapping emission PET images were obtained. Images reviewed and manipulated [email or web address] by the radiologist. Images stored on PACS. LIMITATIONS: None. FINDINGS: HEAD AND NECK: No areas of abnormal metabolic activity in the soft tissues of the head and neck. CHEST: No areas of abnormal metabolic activity in the chest. ABDOMEN AND PELVIS: The liver demonstrates heterogeneous non focal FDG uptake. There is expected phy siologic uptake throughout the gastrointestinal and genitourinary tracts, which obscures the urotheli al mass in the right renal pelvis and limits locoregional staging. No abnormal areas of abnormal met abolic activity are identified in the abdomen or pelvis. PROXIMAL LOWER EXTREMITIES: No areas of abnormal metabolic activity in the soft tissues of the lower extremities. BONES: No areas of abnormal metabolic activity in the imaged axial and appendicular skeleton. ADDITIONAL CT FINDINGS: The tip of the right subclavian vein a prior dual lumen port within the SVC. There is cardiomegaly and moderate atherosclerotic calcification of the coronary arteries and thorac ic aorta. There is also moderate upper lobe predominant centrilobular emphysema. The gallbladder is absent. The spleen is normal in size. Evaluation of the urothelial mass within the renal pelvis is limited due to the absence of intravenous contrast. There is no hydronephrosis, nephrolithiasis, hy droureter or ureterolithiasis. There is no enlarged retroperitoneal adenopathy. Evaluation of the p richy is limited due to the artifact from the orthopedic hardware. There are findings of prior ventr al hernia repair on the right side of the abdomen. There is no acute abnormality of the bowel or mes entery. OTHER: No other findings. IMPRESSION: No abnormal metabolic activity. As stated above, evaluation of urothelial cancers on PE T is limited by the normal urinary activity which obscures the tumors and limits locoregional staging . TECHNICAL DOCUMENTATION: JOB ID: [id number] [employer]- All Rights Reserved Reading location - IP/workstation name: [email or web address]
== END ==
LOC: RAD 16:50
PROVIDERS: ATTEND Internal Medicine
DX: C66.1 Malignant neoplasm of right ureter (principal)
CPT/HCPCS: 78815; A9552

== ENCOUNTER 2019-03-24 11:50 | Emergency (ER) | payer MEDICARE, OTHER ==
[2019-03-24 13:02] LABS: ABSOLUTE BASOPHILS # (AUTO) 0.1 10^3/uL (0.0-0.2); ABSOLUTE EOSINOPHILS # (AUTO) 0.1 10^3/uL (0.0-0.6); ABSOLUTE MONOCYTES (AUTO) 0.6 10^3/uL (0.1-1.4); ABSOLUTE NEUT (AUTO) 3.7 10^3/uL (1.7-8.2); HEMATOCRIT 43.7 % (36.0-47.0); HEMOGLOBIN 14.8 g/dL (12.0-15.5); LYMPHOCYTES % (AUTO) 18.6 % (13-45); MEAN CORPUSCULAR HEMOGLOBIN 31.2 pg (27.0-33.4); MEAN CORPUSCULAR HGB CONC 33.9 g/dL (32.0-36.0); MEAN CORPUSCULAR VOLUME 92 fl (80-97); MONOCYTES % (AUTO) 10.8 % (3-13); PLATELET COUNT 252 10^3/uL (150-450); RED BLOOD COUNT 4.75 10^6/uL (3.72-5.28); RED CELL DISTRIBUTION WIDTH 14.8 % (11.5-14.0); SEGMENTED NEUTROPHILS % (AUTO) 66.6 % (42-78); TOTAL CELLS COUNTED % (AUTO) 100 %; WHITE BLOOD COUNT 5.6 10^3/uL (4.0-10.5)
[2019-03-24 13:20] LABS: ALBUMIN 3.8 g/dL (3.5-5.0); ALKALINE PHOSPHATASE 195 U/L (38-126); ANION GAP 6 (5-19); ASPARTATE AMINO TRANSFERASE 108 U/L (14-36); BILIRUBIN,TOTAL 1.2 mg/dL (0.2-1.3); BLOOD UREA NITROGEN 15 mg/dL (7-20); CALCIUM 9.3 mg/dL (8.4-10.2); CARBON DIOXIDE 36 mmol/L (22-30); CHLORIDE 97 mmol/L (98-107); CREATINE KINASE 28 U/L (30-135); GLUCOSE 163 mg/dL (75-110); POTASSIUM 3.7 mmol/L (3.6-5.0); TOTAL PROTEIN 7.3 g/dL (6.3-8.2)
--- NOTE | 2019-03-24 13:20 | ER Document Report ---
ED General - General Chief Complaint: Nausea Stated Complaint: NAUSEA/GENERAL WEAKNESS Time Seen by Provider: 03/24/19 13:19 Primary Care Provider: JOSH BASSETT MD [Primary Care Provider] - Follow up as needed Mode of Arrival: Ambulatory Information source: Patient, Relative TRAVEL OUTSIDE OF THE [place] IN LAST 30 DAYS: No - HPI Onset: Other - over the last 3-4 days Onset/Duration: Gradual Quality of pain: Achy, Sharp Severity: Moderate Pain Level: 3 Associated symptoms: Nausea, Weakness, Other - decreased PO intake Exacerbated by: Denies Relieved by: Denies Similar symptoms previously: Yes - with prior viral infections Recently seen / treated by doctor: Yes - patient has seen her PCP and was start ed on Aricept 2 weeks ago Notes: 78 year old female with a history of mild Dementia who was just started on Aricept, Lymphoma, Diastolic CHF, HTN, HLD, DM, Hypothyroidism here for 3-4 days of generalized weakness, nausea, and decreased appetite. The patient is also having some mild epigastric pain. The patient denies sick contacts, recent travel, or recent antibiotic use. The patient denies significant cough or urinary symptoms but she has had some mild diarrhea. - Related Data Allergies/Adverse Reactions: No Known Allergies Allergy (Verified 07/03/18 15:25) Home Medications: AsA Past Medical History - Social History Smoking Status: Never Smoker Chew tobacco use (# tins/day): No Frequency of alcohol use: None Drug Abuse: None Family History: Reviewed & Not Pertinent - Patient is 77 years old. Patient has suicidal ideation: No Patient has homicidal ideation: No - Past Medical History Cardiac Medical History: Reports: Hx Congestive Heart Failure - diastolic dysfunction, Hx Hypercholesterolemia, Hx Hypertension - COZAAR-at bedtime Denies: Hx Atrial Fibrillation, Hx Coronary Artery Disease, Hx DVT, Hx Heart Attack, Hx Pulmonary Embolism Pulmonary Medical History: Reports: Hx Pneumonia Denies: Hx Asthma, Hx Bronchitis, Hx COPD, Hx Sleep Apnea Neurological Medical History: Denies: Hx Cerebrovascular Accident, Hx Seizures Endocrine Medical History: Reports: Hx Diabetes Mellitus Type 1, Hx Diabetes Mellitus Type 2, Hx Hypothyroidism. 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 Denies: Hx Mastectomy, Hx Open Heart Surgery, Hx Pacemaker - Immunizations Hx Diphtheria, Pertussis, Tetanus Vaccination: No Physical Exam - Vital signs Vitals: Temp Pulse Resp BP Pulse Ox 97.6 F 57 L 18 140/54 H 97 03/24/19 12:03/24/19 12:03/24/19 12:03/24/19 12:03/24/19 12:01 - Notes Notes: GENERAL: Well-appearing, well-nourished and in no acute distress. HEAD: Atraumatic, normocephalic. EYES: Pupils equal round and reactive to light, extraocular movements intact, sclera anicteric, conjunctiva are normal. ENT: TMs normal, nares patent, oropharynx clear without exudates. Moist mucous membranes. NECK: Normal range of motion, supple without lymphadenopathy or JVD. LUNGS: Breath sounds clear to auscultation bilaterally and equal. No wheezes rales or rhonchi. HEART: Regular rate and rhythm without murmurs, rubs or gallops. ABDOMEN: Soft, very mild tenderness in epigastric area, normoactive bowel sounds. No guarding, no rebound. No masses appreciated. EXTREMITIES: Normal range of motion, no pitting or edema. No clubbing or cyanosis. NEUROLOGICAL: Cranial nerves II through XII grossly intact. Normal speech, normal gait. PSYCH: Normal mood, normal affect. SKIN: Warm, Dry, normal turgor, no rashes or lesions noted. Course - Re-evaluation Re-evalutation: 03/24/19 14:13 The patient is here for 3-4 days of nausea, mild upper abdominal pain, weakness and poor PO intake. Patient felt better after 500cc of IV fluids and zofran. Patient was recently started on Aricept and Nausea seems to a common side effect of this medication. Patient and family told to discuss her symptoms with the prescribing provider. 03/24/19 15:52 Patient found to have a possible UTI. It is possibly a UTI could be making her feel week, tired, and nauseated. Will culture urine and treat with Keflex 500mg BID based on prior urine cultures. Will prescribe patient PRN Zofran as well. 03/24/19 15:53 - Vital Signs Vital signs: Temp Pulse Resp BP Pulse Ox 97.6 F 57 L 19 189/70 H 97 03/24/19 12:01 03/24/19 12:01 03/24/19 14:01 03/24/19 14:01 03/24/19 14:01 - Laboratory Result Diagrams: 03/24/19 12:50 03/24/19 12:50 Laboratory results interpreted by me: 03/24/19 03/24/19 03/24/19 12:50 12:50 14:41 RDW 14.8 H Chloride 97 L Carbon Dioxide 36 H Glucose 163 H AST 108 H Alkaline Phosphatase 195 H Creatine Kinase 28 L Urine Protein 30 H Urine Glucose (UA) >=500 H Urine Ketones TRACE H Urine Urobilinogen 2.0 H Ur Leukocyte Esterase TRACE H - EKG Interpretation by Mi EKG shows normal: Sinus rhythm, [place], Intervals Rate: Normal Rhythm: NSR Additional EKG results interpreted by me: 03/24/19 14:05 T wave inversions V4-V6 Discharge - Discharge Clinical Impression: Nausea UTI (urinary tract infection) Qualifiers: Urinary tract infection type: acute cystitis Hematuria presence: without hematuria Qualified Code(s): N30.00 - Acute cystitis without hematuria Condition: Stable Disposition: HOME, SELF-CARE Instructions: Urinary Tract Infection ([facility]) Additional Instructions: Take Keflex (antibiotic) as prescribed for treatment of a UTI. Use the prescribed Zofran as needed for nausea. Speak with your primary care doctor about your symptoms as the nausea may be related to Aricept. Return to an ER if worse in anyway. Prescriptions: Ondansetron [Zofran Odt 4 mg Tablet] 1 tab PO Q8HP PRN #10 tab.rapdis PRN Reason: Cephalexin Monohydrate [Keflex 500 mg Capsule] 500 mg PO BID 7 Days capsule Referrals: JOSH BASSETT MD [Primary Care Provider] - Follow up as needed
[2019-03-24 13:29] LABS: CREATINE KINASE MB 0.45 ng/mL (<4.55)
[2019-03-24 13:31] LABS: TROPONIN I < 0.012 ng/mL
[2019-03-24] MEDS ORDERED: NORMAL SALINE 500 ML IV ONE (13:31)
[2019-03-24] MEDS ORDERED: ONDANSETRON HCL INJ/PF 4 MG/2 ML SDV IV ONE (13:32)
[2019-03-24 15:02] LABS: APPEARANCE,URINE CLOUDY; BILIRUBIN,URINE NEGATIVE (NEGATIVE); COLOR,URINE YELLOW; GLUCOSE, URINE >=500 mg/dL (NEGATIVE); KETONES,URINE TRACE mg/dL (NEGATIVE); LEUKOCYTE ESTERASE,URINE TRACE (NEGATIVE); NITRITE,URINE NEGATIVE (NEGATIVE); PROTEIN,URINE 30 mg/dL (NEGATIVE)
--- NOTE | 2019-03-24 15:37 | RADIOLOGY REPORT (SQ) ---
EXAM DESCRIPTION: CHEST 2 VIEWS COMPLETED DATE/TIME: 03/24/2019 2:17 pm REASON FOR STUDY: rule out pneumonia. weakness and mild cough COMPARISON: 10/18/2018 EXAM PARAMETERS: NUMBER OF VIEWS: two views TECHNIQUE: Digital Frontal and Lateral radiographic views of the chest acquired. RADIATION DOSE: NA LIMITATIONS: none FINDINGS: LUNGS AND PLEURA: The lungs are hyperinflated. No opacities, masses or pneumothorax. No p leural effusion. MEDIASTINUM AND HILAR STRUCTURES: No masses or contour abnormalities. HEART AND VASCULAR STRUCTURES: Heart normal size. No evidence for failure. BONES: No acute findings. HARDWARE: MediPort catheter with tip at the cavoatrial junction unchanged. OTHER: No other significant finding. IMPRESSION: NO ACUTE RADIOGRAPHIC FINDING IN THE CHEST. TECHNICAL DOCUMENTATION: JOB ID: [id number] [employer]- All Rights Reserved Reading location - IP/workstation name: [email or web address]
[2019-03-24 16:08] VITALS: BP 205/62
--- NOTE | 2019-03-24 20:47 | EKG REPORT ---
SEVERITY:- ABNORMAL ECG - SINUS RHYTHM PROBABLE LEFT ATRIAL ABNORMALITY PROBABLE LVH WITH SECONDARY REPOL ABNRM : Confirmed by: Sahwnee Kurtz 24-Mar-2019 20:45:48
== END 2019-03-24 16:07 | disposition home or self-care (01) ==
LOC: ER 11:50
DX: N30.00 Acute cystitis without hematuria (principal); R11.0 Nausea; R53.1 Weakness; F03.90 Unspecified dementia, unspecified severity, without behavioral disturbance, psychotic disturbance, mood disturbance, and anxiety
CPT/HCPCS: 93005; 99285; 96361; 96374; 36415; 87086; 82553; 82550; 83690; 83735; 84443; 85025; 87088; 80053; 81001; 84484; 87186; 71046; 93010; J2405; J7040

== ENCOUNTER → 2019-04-10 | Outpatient (CLI) | payer MEDICARE, OTHER ==
--- NOTE | 2019-04-10 09:17 | RADIOLOGY REPORT (SQ) ---
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 Images reviewed with lung, soft tissue and bone windows. Reconstructed coronal and sagittal MPR and MIP images reviewed. All images stored on PACS. All CT scanners at this facility use dose modulation, iterative reconstruction, and/or weight based d osing when appropriate to reduce radiation dose to as low as reasonably achievable (ALARA). [facility]: Dose Right [facility]: CareDose [facility]: Dose Right [facility]: Teradose 4D [facility]: [employer] CONTRAST TYPE AND DOSE: Omnipaque 350 63 cc RENAL FUNCTION: Creatinine 0.65 RADIATION DOSE: . LIMITATIONS: None. FINDINGS: LUNGS AND PLEURA: Centrilobular emphysema, grossly stable. No focal airspace disease. No pleural effusion or pneumothorax. No discrete pulmonary nodules or masses. Mild linear consolidati on within the left lingula, likely atelectasis or scarring. HILAR AND MEDIASTINAL STRUCTURES: No identified masses or abnormal nodes. HEART AND VASCULAR STRUCTURES: Three-vessel coronary atherosclerosis. Normal heart size. No pericar dial effusion. HARDWARE: Right-sided chest port with catheter tip at cavoatrial junction. UPPER ABDOMEN: See separate report of the CT of the abdomen. THYROID AND OTHER SOFT TISSUES: No masses. No adenopathy. BONES: No acute bony abnormality. No suspicious osseous lesions. Chronic left-sided rib fractures. OTHER: No other significant finding. IMPRESSION: 1. No evidence of metastatic disease within the thorax. 2. No evidence of acute intrathoracic process. TECHNICAL DOCUMENTATION: JOB ID: [id number] Quality ID # [id number]: Final reports with documentation of one or more dose reduction techniques (e.g., Au tomated exposure control, adjustment of the mA and/or kV according to patient size, use of iterative reconstruction technique) 2010 [employer]- All Rights Reserved Reading location - IP/workstation name: [email or web address]
--- NOTE | 2019-04-10 12:53 | RADIOLOGY REPORT (SQ) ---
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 No oral contrast. Images reviewed with lung, soft tissue, and bone windows. Reconstructed coronal and sagittal MPR images reviewed. Delayed images for evaluation of the urinary system also acquired. All images stored on PACS. All CT scanners at this facility use dose modulation, iterative reconstruction, and/or weight based d osing when appropriate to reduce radiation dose to as low as reasonably achievable (ALARA). [facility]: Dose Right [facility]: CareDose [facility]: Dose Right [facility]: Teradose 4D [facility]: [employer] CONTRAST TYPE AND DOSE: contrast/concentration: Isovue 350.00 mg/ml; Total Contrast Delivered: 63.0 ml; Total Saline Delivered: 65.0 ml RENAL FUNCTION: Creatinine 0.65 RADIATION DOSE: CT Rad equipment meets quality standard of care and radiation dose reduction techniq ues were employed. CTDIvol: 4.4 - 5.2 mGy. DLP: 684 mGy-cm.. LIMITATIONS: None. FINDINGS: LOWER CHEST: See separate report of the CT of the chest. LIVER: Stable cyst along the falciform ligament. No new hepatic lesions. No ductal dilation. SPLEEN: Normal size. No focal lesions. PANCREAS: No masses. No significant calcifications. No adjacent inflammation or peripancreatic fluid collections. Pancreatic duct not dilated. GALLBLADDER: Surgically absent. Stable dilation of the CBD, likely cholecystectomy related. ADRENAL GLANDS: No significant masses or asymmetry. RIGHT KIDNEY AND URETER: Grossly stable appearance the previously described area of soft tissue withi n the region of the right renal pelvis (series 3, image 29). No significant calcifications. No hy dronephrosis or hydroureter. LEFT KIDNEY AND URETER: No solid masses. No significant calcifications. No hydronephrosis or hydr oureter. AORTA AND VESSELS: Aortoiliac atherosclerosis without aneurysm. No dissection. Renal arteries, SMA, c eliac without stenosis. RETROPERITONEUM: No retroperitoneal adenopathy, hemorrhage or masses. BOWEL AND PERITONEAL CAVITY: No evidence of intestinal obstruction. No focal bowel wall thickening. APPENDIX: Not identified. PELVIS: Streak artifact limits evaluation. No mass, adenopathy or free fluid. ABDOMINAL WALL: Surgical sutures within the right anterior subcutaneous tissues. No mass. No signif icant hernia. BONES: No acute bony abnormality. Partially visualized bilateral hip arthroplasties. Lower lumbar f acet arthropathy and spondylosis. OTHER: No other significant finding. IMPRESSION: 1. No evidence of new metastatic disease within the abdomen or pelvis. 2. Stable appearance of the soft tissue density in the right renal pelvis suspicious for urothelial malignancy. TECHNICAL DOCUMENTATION: JOB ID: [id number] Quality ID # [id number]: Final reports with documentation of one or more dose reduction techniques (e.g., Au tomated exposure control, adjustment of the mA and/or kV according to patient size, use of iterative reconstruction technique) 2010 [employer] All Rights Reserved Reading location - IP/workstation name: [email or web address]
== END ==
LOC: RAD 07:50
PROVIDERS: ATTEND Physician Assistant Medical
DX: C66.1 Malignant neoplasm of right ureter (principal)
CPT/HCPCS: 71260; 74177

== ENCOUNTER → 2019-04-27 | Outpatient (CLI) | payer MEDICARE, OTHER ==
--- NOTE | 2019-04-27 09:44 | RADIOLOGY REPORT (SQ) ---
EXAM DESCRIPTION: MRI ABDOMEN WITHOUT COMPLETED DATE/TIME: 04/27/2019 9:04 am REASON FOR STUDY: R93.89 ABN FINDING ON DIAGNOSTIC IMAGING OF OTHER BODY STRUCTURES R93.89 ABNORMAL FINDINGS ON DX IMAGING OF OTH BODY STRUCTURE COMPARISON: Recent abdominal CT. TECHNIQUE: Noncontrast MRCP. Source and MIP images reviewed. LIMITATIONS: None. FINDINGS: GALLBLADDER: Surgically absent. INTRAHEPATIC DUCTS: Central intrahepatic ducts are mildly dilated. EXTRAHEPATIC DUCTS: Common duct diffusely slightly conspicuous. 1.1 cm proximally. 9 mm distally. No discrete mass or stones. PANCREAS: Generally homogeneous, no gross mass or significant signal alteration. No surrounding infl ammatory changes or fluid. Pancreatic duct is normal. LIVER, SPLEEN, KIDNEYS, ADRENALS: At least 1 anterior liver cyst. No suspicious lesions. Spleen unr emarkable. Left renal cysts. No obstructive changes. No gross adrenal mass. VESSELS: No evidence of aneurysm. Grossly appropriate flow voids in the major vascular structures. LUNG BASES: Grossly clear. OTHER: No other significant finding. IMPRESSION: 1. Mild duct distention, as seen on recent CT. No evidence, however, of obstructing duct stones or d iscrete mass. TECHNICAL DOCUMENTATION: JOB ID: [id number] 2010 [employer]- All Rights Reserved Reading location - IP/workstation name: [email or web address]
== END ==
LOC: RAD 07:51
PROVIDERS: ATTEND Internal Medicine Gastroenterology
DX: R93.89 Abnormal findings on diagnostic imaging of other specified body structures (principal)
CPT/HCPCS: 74181

== ENCOUNTER 2019-04-30 11:35 | Day surgery (SDC) | payer MEDICARE, OTHER ==
[~2019-04-30 11:35] MED LIST: DIPHENHYDRAMINE HCL 50 MG/ML VIAL ONE; EPINEPHRINE INJ 1 MG/10 ML DISP.SYRIN ONE; FENTANYL CITRATE INJ/PF 100 MCG/2 ML AMPUL ONE; FLUMAZENIL INJ 0.5 MG/5 ML VIAL ONE; GLUCAGON,HUMAN RECOMB 1 MG INJ ONE; MIDAZOLAM 2 MG/2 ML INJ ONE; NALOXONE HCL INJ/PF 0.4 MG/1 ML SDV ONE; ONDANSETRON HCL INJ/PF 4 MG/2 ML SDV ONE
[2019-04-30 14:11] VITALS: BP 146/52
--- NOTE | 2019-04-30 14:24 | Operative Report ---
Operative Report DATE OF SURGERY: 04/30/19 Operative Report: The risks benefits and alternatives of the procedure explained to the patient in detail and informed consent is obtained.A GIF Olympus video scope was inserted into the patient's mouth and hypopharynx, the esophagus is identified intubated and insufflated, the scope was then advanced through the esophagus stomach and duodenum ,retroflexion maneuver is done, the esophagus stomach and first and second portions of the duodenum examined PREOPERATIVE DIAGNOSIS: Epigastric pain, dysphagia POSTOPERATIVE DIAGNOSIS: Esophagitis status post biopsy. Gastritis status post biopsy OPERATION: EGD with biopsy SURGEON: NADEEM OLIVER ANESTHESIA: Moderate Sedation - 2 mg of Versed. Conscious sedation monitoring time 30 minutes. TISSUE REMOVED OR ALTERED: As noted above. COMPLICATIONS: None. ESTIMATED BLOOD LOSS: None. INTRAOPERATIVE FINDINGS: As noted above. PROCEDURE: Patient tolerated the procedure well. No immediate postprocedure complications are noted. Patient is discharged in good condition. Discharge date 04/30/2019. Discharge diet: Regular. Discharge activity: Regular. 2 to 3-week follow-up to discuss findings. Patient is instructed to call the office or proceed to the emergency room should there be any further problems or questions. Wait on the pathology.
== END 2019-04-30 14:45 | disposition home or self-care (01) ==
LOC: END 11:35
PROVIDERS: ATTEND Internal Medicine Gastroenterology
DX: K20.9 Esophagitis, unspecified (principal); K29.70 Gastritis, unspecified, without bleeding
CPT/HCPCS: 43239; 82962; 88305 ×2; J2250; J0171; J1200; J1610; J2310; J2405; J3010; J3490